=== PATIENT | female | born 1960 | race Caucasian/White ===

== ENCOUNTER → 2018-01-02 | Outpatient (CLI) | payer OTHER ==
[~2018-01-02] MED LIST: ALDACTONE25 MG PO; ASPIRIN EC81 M1 PO; ASPIRIN81 M2 PO; AUGMENTIN 875875 MG PO; AZITHROMYCIN 2250 MG PO; BENICAR HCT 401 EAC1 PO; BETASEPT 4% SU120 M1 TP; CALCIUM + D3 E1 EACH PO; CARVEDILOL12.5 MG PO; CELEXA20 MG PO; CHLORTHALIDONE25 MG PO; CIPRO500 M1 PO; CIPRO500 MG PO; CIPROFLOXACIN500 M1 PO; CLEOCIN HCL300 MG PO; COREG6.25 MG PO; DIFLUCAN OR; DOXYCYCLINE 10100 M1 PO; DOXYCYCLINE 10100 MG PO; HUMALOG100 UNIT/1 SUBQ; HYDROCODONE PO; HYDROCODONE-AP1 EAC6 PO; INVANZ IV; LANTUS SUBQ; LANTUS100 UNIT/M SUBQ; LEVEMIR SUBQ; LIPITOR 20 MG T20 M1 PO; LISINOPRIL-HCT1 EAC2 PO; LISINOPRIL10 MG PO; LOPRESSOR25 PO; METOPROLOL TART25 MG PO; MINOCIN50 MG PO; NORCO 5-325 TA1 EACH PO; NORVASC5 MG PO; NOVOLOG100 UNIT/1; NOVOLOG100 UNIT/1 SUBQ; ONDANSETRON HCL4 M2 PO; OSELB75 PO; PEPCID20 MG PO; PREDNISONE 20 M20 M1 PO; ROBITUSSIN100 MG/53 PO; VENTOLIN HFA 1818 GM INH; [UNRECOGNIZED DRUG - OTHER] SC
== END ==
LOC: RAD 02:00
DX: Z12.31 Encounter for screening mammogram for malignant neoplasm of breast (principal)

== ENCOUNTER → 2018-01-28 | Outpatient (CLI) | payer OTHER ==
[~2018-01-28] VITALS: Ht 160 cm; Wt 122.9 kg
[~2018-01-28] MED LIST changes: +COREG25 MG PO; +LISINOPRIL20 MG PO
--- NOTE | ~2018-01-28 | PATH ---
[facility] [address] [place] [address] PATHOLOGY RPT PROCEDURE Name: IAVNIA PARSON Room #: REG GLENNA Ibanez.#: [id number] Admission: 01/28/18 Date of : 56 Discharge: Report #: [id number] Path Case #: [id number] LCA Accession Number: [id number] . 01 Material submitted: . PART A: BIOPSY OF CECAL POLYP PART B: BIOPSY OF RECTAL POLYP . 01 Clinical history: . Pre-Op DX: Hx of polyps Post-Op DX: Colon polyps . 02 Diagnosis: A. Polyp, cecal polyp, endoscopic biopsy: - Tubular adenoma. - Negative for high-grade dysplasia. . B. Polyp, rectal polyp, endoscopic biopsy: - Hyperplastic polyp. - Negative for dysplasia. (IUV:tyler; 01/29/2018) QMS/01/29/2018 . 02 Electronically signed: . Rina U Vadlamani, MD, Pathologist NPI- [id number] . 01 Gross description: . A. Received in formalin labeled "Ivania Parson, BX of cecal polyp," is a single segment of carpenetr soft tissue measuring 0.3 cm in maximum dimension. The specimen is entirely submitted in cassette A1. . B. Received in formalin labeled "Ivania Parson, BX of rectal polyp," is a single segment of carpenter soft tissue measuring 0.2 cm in maximum dimension. The specimen is entirely submitted in cassette B1. (TSD; 01/28/2018) TOB/TOB . 02 Pathologist provided ICD-10: D12.0, K62.1 . 02 CPT . 975254, 796125 Performed at: [address] [id number] MD Mendoza Lacy MD Phone: [phone] [facility] [address] [place] [address] PATHOLOGY RPT PROCEDURE Name: IVANIA PARSON Room #: REG CLKerry Ontiveros#: [id number] Admission: 01/28/18 Date of : 56 Discharge: Report #: [id number] Path Case #: [id number] Performed at: [address] [id number] MD Rina Matamoros MD Phone: [phone]
--- NOTE | ~2018-01-28 | P ---
[facility] [place] [address] PROCEDURE REPORT Name: TL LANDRY Room #: REG [facility].#: [id number] Admission: 01/28/18 Attend Phys: Gavin Ornelas Discharge: Date of : 56 Report #: [id number] THIS REPORT FOR: //name// CC: Gavin Reinoso MD DATE OF SERVICE: 01/28/2018 PROCEDURE PERFORMED: Colonoscopy with biopsies. HISTORY OF PRESENT ILLNESS: The patient is a 57-year-old female, with a history of polyps, here for a 5-year followup. She denies any symptoms. No family history of colon cancer. DESCRIPTION OF PROCEDURE: The risks and benefits of the procedure were explained to the patient, those risks including, but not limited to bleeding, perforation, the risk of sedation. She understood these risks and gave informed consent. Sedation was given using propofol per anesthesia. Next, a digital rectal exam was initially performed, which was normal. Next, using a standard Olympus colonoscope, the scope was placed in the patient's anus and advanced under direct vision to the cecum. The overall prep was excellent. In the cecum, there was a 3 mm sessile polyp. This was removed with cold forceps, otherwise normal. The ileocecal valve was normal. The ascending, transverse, descending and sigmoid colon were normal. In the rectum, a 4 mm sessile polyp was noted. This was also removed with cold forceps. On retroflexion, no abnormalities were noted. The scope was then withdrawn and the procedure terminated. The patient tolerated the procedure well. IMPRESSION: 1. Two small colonic polyps. 2. Otherwise, normal colonoscopy. RECOMMENDATIONS: 1. Await biopsy results. 2. If polyps are hyperplastic, repeat in 10 years; if adenomatous polyps, repeat in 5 years. Thank you for allowing me to participate in her care. <ELECTRONICALLY SIGNED> By: Gavin Jansen MD 01/30/18 1016 0933 2336 Gavin Jansen MD /nt
== END | disposition home or self-care (01) ==
LOC: GI 07:55
DX: Z12.11 Encounter for screening for malignant neoplasm of colon (principal); D12.0 Benign neoplasm of cecum; K62.1 Rectal polyp; I10 Essential (primary) hypertension; E78.5 Hyperlipidemia, unspecified; E11.9 Type 2 diabetes mellitus without complications; N28.9 Disorder of kidney and ureter, unspecified; Z79.899 Other long term (current) drug therapy; Z86.010 Personal history of colon polyps; Z88.1 Allergy status to other antibiotic agents; Z91.040 Latex allergy status; Z79.4 Long term (current) use of insulin; Z98.890 Other specified postprocedural states; Z98.51 Tubal ligation status; Z86.73 Personal history of transient ischemic attack (TIA), and cerebral infarction without residual deficits
CPT/HCPCS: 62110; 62900

== ENCOUNTER 2018-02-10 06:57 | Inpatient (IN) | payer OTHER ==
[~2018-02-10] VITALS: Ht 160 cm; Wt 128.4 kg
--- NOTE | ~2018-02-10 | HC ---
[facility] [place] [address] CONSULTATION Name: TL LANDRY Room #: 205-P ADM IN M.R.#: [id number] Admission: 02/10/18 Attend Phys: Lencho Ahuja MD, Discharge: Date of : 56 Report #: [id number] THIS REPORT FOR: //name// CC: Lencho Reinoso DATE OF SERVICE: 02/10/2018 REASON FOR CONSULTATION: Chronic kidney disease. HISTORY OF PRESENT ILLNESS: This 57-year-old patient of Dr. Reinoso with longstanding diabetes, peripheral neuropathy, Charcot left ankle and possible retinopathy, has nephropathy with heavy proteinuria. She is followed in our office by Dr. Reeder. Baseline creatinine in the 2-2.5 range. She is having some exertional dyspnea with a strong family history of coronary artery disease. She had a stress test, which was abnormal, was slated for a heart catheterization today, creatinine at 2.4 and she is being seen to see if there is anything further to be done. HOME MEDICATIONS: Include chlorthalidone 25 mg per day, carvedilol 25 mg b.i.d., lisinopril 40 mg daily, atorvastatin 20 mg daily, and insulin. PAST MEDICAL HISTORY: She has had abdominal and groin abscesses in the past as well as a longstanding diabetes and she had a remote TIA with right-sided weakness and speech slurring. She also had amputation of the small toe on the left foot. FAMILY HISTORY: Strongly positive for diabetes in her sister and her brother, and her sister also had coronary artery disease, several myocardial infarctions and . SOCIAL HISTORY: She has 2 children. She has never been a smoker. REVIEW OF SYSTEMS: GENERAL: She has been feeling reasonably well. EYES: Vision has been a bit of a problem. She apparently has had some glaucoma. ENT: Hearing okay, swallows okay. No mouth sores. ENDOCRINE: Positive for the diabetes. RESPIRATORY: Does get winded with exertional dyspnea. CARDIAC: No chest pain. She has been swelling a bit in her legs. GASTROINTESTINAL: No nausea, vomiting or diarrhea. She did have colonoscopy and a polyp removed. GENITOURINARY: No dysuria, hematuria, or renal stones. NEUROLOGIC: She had a remote TIA. Otherwise, she is okay. She does walk with [facility] [address] [place] [address] CONSULTATION Name: TL LANDRY Room #: 205-P [facility] IN ..#: [id number] Admission: 02/10/18 Attend Phys: Lencho Ahuja MD, Discharge: Date of : 56 Report #: [id number] a cane. PHYSICAL EXAMINATION: GENERAL: This is a somewhat overweight, somewhat chronically ill-appearing patient. SKIN: Unremarkable. SKELETAL: Rather obese. HEENT: Extraocular movements are full. No scleral icterus. Hearing and vision are intact. Mucous membranes are moist. Tongue and buccal mucosa are benign. NECK: Supple, no carotid bruits are heard. CHEST: Clear to auscultation. HEART: Regular. ABDOMEN: Soft and nontender. EXTREMITIES: Show 1+ peripheral edema. NEUROLOGIC: She has got numbness in the feet. LABORATORY DATA: Creatinine 2.4, potassium 5.3, hemoglobin 9.8. ASSESSMENT AND PLAN: 1. Chronic kidney disease. She has diabetic nephropathy with heavy proteinuria CKD. Her lisinopril is on hold for her heart catheterization. She has volume overloaded. I do not believe there is a great push to have to give her any much in the way of IV fluids, maybe just a little bit before the catheterization tomorrow. Otherwise, limit the amount of dye, lisinopril on hold, etc. 2. Diabetes mellitus with peripheral neuropathy. 3. Abnormal stress test. We will need this catheterization. 4. History of transient ischemic attack. <ELECTRONICALLY SIGNED> By: Lencho Augustin MD 02/11/18 1159 1040 1810 Lencho Augustin MD /nt
--- NOTE | ~2018-02-10 | EKG ---
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: Amy MITCHELL : 1960 Requested By: Lencho Ahuja Order Number: [id number] MD: Corona Tolbert Measurements Intervals [place] Rate: 68 P: 32 NM: 162 QRS: 22 QRSD: 88 T: 63 QT: 394 QTc: 420 Interpretive Statements Sinus rhythm Low voltage, precordial leads Anteroseptal infarct, old Compared to ECG 08/11/2016 17:12:26 No significant change was found Electronically Signed On 02-10-2018 7:30:18 CDT by Corona Tolbert [email or web address] <ELECTRONICALLY SIGNED> By: Corona Tolbert MD, [facility] 02/10/18 0730 3 Corona Tolbert MD, [facility] /EPI
--- NOTE | ~2018-02-10 | EKG ---
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: GR : 1960 Requested By: Lencho Ahuja Order Number: [id number] MD: Corona Tolbert Measurements Intervals [place] Rate: 74 P: 36 PA: 166 QRS: 39 QRSD: 83 T: 92 QT: 407 QTc: 452 Interpretive Statements Sinus rhythm Anteroseptal infarct, old Nonspecific T abnormalities, lateral leads Compared to ECG 02/10/2018 07:14:04 T-wave abnormality now present Electronically Signed On 02-13-2018 8:16:51 CDT by Corona Tolbert [email or web address] <ELECTRONICALLY SIGNED> By: Corona Tolbert MD, [facility] 02/13/18 0816 0607 0607 Corona Tolbert MD, [facility] /EPI
--- NOTE | ~2018-02-10 | H ---
[facility] [place] [address] HISTORY AND PHYSICAL Name: TL LANDRY Room #: 205-P [facility] M.R.#: [id number] Admission: 02/10/18 Attend Phys: Lencho Ahuja MD, Discharge: Date of : 56 Report #: [id number] THIS REPORT FOR: //name// CC: Lencho Reinoso DATE OF SERVICE: 02/10/2018 HISTORY OF PRESENT ILLNESS: The patient is a 57-year-old female with some stable anginal symptoms, was admitted for cardiac catheterization. Unfortunately, with longstanding diabetes, found to have an elevated creatinine, her baseline has been around 1.8-2.4. She is not currently having any chest pain. I have elected to hold off for hydration and renal consult. She has been on lisinopril 40, chlorthalidone, insulin, Pepcid, carvedilol 25 b.i.d. and atorvastatin 40. Her sugars have improved. I was reviewing with Dr. Reinoso, her primary doctor, this is slightly higher than her baseline creatinine. She denies any syncope or presyncope. A definite decrease in exercise tolerance. She has never had a cardiac catheterization. PAST MEDICAL HISTORY: Positive for hypertension, diabetes, a strong family history of premature coronary artery disease, osteomyelitis of the left foot, hypertension, chronic kidney disease stage 3-4 now, ankle fracture, metatarsal amputation. FAMILY HISTORY: Positive with a brother who had premature coronary disease. SOCIAL HISTORY: She currently lives with her brother. She has never been a smoker or alcohol use. No significant caffeine. ALLERGIES: SULFA. LABORATORY DATA: H and H are 9.8 and 28.8, white count 7.8, platelets 211. Potassium 5.3, creatinine 2.4, glucose 127. Renal ultrasound looks to be normal size kidneys. No evidence of hydronephrosis. No renal mass. PHYSICAL EXAMINATION: GENERAL: Pleasant, alert. VITAL SIGNS: Pulse is 68, blood pressure 180/66. HEENT: Eyes reveal xanthelasmas. Pharynx is clear. NECK: Shows preserved upstrokes without JVD or bruits. LUNGS: Clear. CARDIOVASCULAR: Regular rate and rhythm, S1, S2, without murmur or gallop. ABDOMEN: Obese, nontender. EXTREMITIES: Reveal trace of edema. Distal pulses are diminished. There is evidence of a prior amputation. SKIN: Warm and dry without xanthoma or ulcer. [facility] [address] [place] [id number] HISTORY AND PHYSICAL Name: TL LANDRY Room #: 205-P [facility] M.#: [id number] Admission: 02/10/18 Attend Phys: Lencho Ahuja MD, Discharge: Date of : 56 Report #: [id number] MUSCULOSKELETAL: No gross joint deformity. NEUROLOGIC: Intact. ASSESSMENT: 1. Coronary artery disease with an abnormal nuclear test and stable anginal symptoms suggesting anterolateral wall ischemia. 2. Longstanding diabetes. 3. Diabetic nephropathy with an elevated creatinine at 2.4. 4. Hypertension. 5. Hypercholesterolemia. RECOMMENDATIONS AND PLAN: We will hold SARAY or a diuretic. Gentle hydration. We will ask Renal to evaluate, renal ultrasound was unremarkable. I would like to proceed to the catheterization lab with limited contrast in the a.m. Even if there could be no intervention, at least to delineate the anatomy and could hold off on intervention if necessary. Risks, benefits, alternatives were discussed with the patient, does like to proceed in this fashion. We will discuss above with Dr. Augustin in addition, I have also discussed with Dr. Reinoso, her prime care, who is not following in this hospital . By: 0909 0946 Lencho Ahuja MD, FACC /nt
--- NOTE | ~2018-02-10 | CATHLAB ---
[facility] [address] [place] [address] INVASIVE PROCEDURE REPORT Name: TL LANDRY Room #: 205-P [facility] IN ..#: [id number] Admission: 02/10/18 Attend Phys: Lencho Ahuja, Discharge: Date of : 56 Date of Service: 02/12/18 1702 Report #: [id number] THIS REPORT FOR: //name// APPROVED REPORT Study performed: 02/12/2018 07:40:52 Patient Details Patient Status: In-Patient Room #: The patient is a 57 year-old female Event Personnel Lencho Ahuja Cert Pharmacy Tech, Kena Guerrero, Ronaldo Palacio Penny, Wes admin secretary Performed Art Access - R femoral artery* 37173 Initial Mod Sed Same Phys/QHP Gr5y 679033 77134 Mod Sed Same Phys/QHP Ea 497993 Left Heart Cath w/or w/o Coronaries [id number] [facility] w/wo Plasty Single LAD 177020 Hemostasis w/ Mynx Indication Chest pain Procedure Narrative The patient was brought urgently to the Cardiac Catheterization Laboratory and was prepped and draped in a sterile manner. The Right Groin^ was infiltrated with 1% Lidocaine subcutaneous anesthesia. A PINNACLE 6FR Sheath #[id number] sheath was inserted into the RFA^. Coronary angiography was performed using coronary diagnostic catheters. The right coronary system was accessed and visualized with a JR 4 catheter. The left coronary system was accessed and visualized with a JL 4 catheter. The left ventricle was accessed and visualized with a Pigtail catheter. Left ventriculogram was performed in HASSAN projection. Closure device was deployed with a 6 Fr . The patient tolerated the procedure well and there were no complications associated with the procedure. There was no hematoma. Intraoperative Conscious Sedation Sedation start time: 08:26 Case end Time: 09:00 Fentanyl 50 mcg Versed 2 mg Fluoro Time: 5.47 minutes Dose: DAP 7868.60 cGycm2 1091 mGy [facility] [address] [place] [address] INVASIVE PROCEDURE REPORT Name: TL LANDRY Room #: 205-P [facility] IN ..#: [id number] Admission: 02/10/18 Attend Phys: Lencho Ahuja, Discharge: Date of : 56 Date of Service: 02/12/18 1702 Report #: [id number] Contrast Type and Amount: Visipaque 80 ml Hemodynamics The aortic pressure is 202/81 mmHg with a mean of 111 mmHg. The left ventricular pressure is 190/19 mmHg with a mean of mmHg. The left ventricular end diastolic pressure is 36 mmHg. PCI Technique Lesion Percutaneous coronary intervention was performed on the mid left anterior descending artery segment. A LAUNCHER 6FR EBU 3.5 #[id number] Guide Catheter was used to engage the ostium. A Luge Wire .014 x 182CM #[id number] Interventional Guidewire was used to cross the lesion. BALLOON DILATION A Balloon catheter Sprinter OTW 2.5 x 12 #[id number] was inserted and inflated up to 14.00atm for 30seconds. Additional Inflation: 10.00atm for 23seconds. Additional Inflation: 12.00atm for 29seconds. STENT DEPLOYMENT A drug-eluting stent RESOLUTE OTW 2.75 X 12 #[id number] was inserted and inflated up to 14.00atm for 40seconds. Additional Inflation: 14.00atm for 25seconds. POST STENT DEPLOYMENT BALLOON DILATION A Balloon catheter TREK NC RX 3.0 X 8 #[id number] was inserted and inflated up to 18.00atm for 21seconds. Conclusion #1 successful PTCA stent of mid LAD 90% stenosis to 0%. Placement of a 2.75 x 12 resolute drug-eluting stent postdilated with noncompliant balloon to 3.1 mm 0% residual and RAJI grade 3 flow #2 left main mildly disease giving rise to LAD and circumflex #3 circumflex OM with mild disease nondominant vessel. Diffuse distal disease diabetic appearing vessels are noted #4 dominant right coronary artery with mild irregularities 30-40% diffuse mid and distal disease is noted small diffusely disease PDA #5 hyperdynamic LV function EF 60% Recommendations and plan. Transfer to CCU follow post stent protocol. [facility] [address] [place] [address] INVASIVE PROCEDURE REPORT Name: TL LANDRY Room #: 205-P ADM IN M.R.#: [id number] Admission: 02/10/18 Attend Phys: Lencho Ahuja, Discharge: Date of : 56 Date of Service: 02/12/181701 Report #: [id number] Limited contrast was utilized here due to renal insufficiency. Continue hydration. Continue dual antiplatelet therapy indefinitely. <ELECTRONICALLY SIGNED> By: Lencho Ahuja MD, FACC 02/12/181701 01 01 Lencho Ahuja MD, FACC /INF
[2018-02-10 07:32] LABS: HEMATOCRIT 28.8 % (37.0-47.0); HEMOGLOBIN 9.8 gm/dL (12.0-15.0); MCH 30.1 pg (26.0-34.0); MCV 88.5 fL (80.0-100.0); RBC 3.26 mil/uL (4.20-5.00); RDW 13.6 % (10.5-14.5); WBC 7.8 thou/uL (4.0-11.0)
[2018-02-10 07:35] VITALS: BP 183/66
[2018-02-10 07:43] LABS: CALCIUM 8.2 mg/dL (8.5-10.1); CREATININE 2.4 mg/dL (0.6-1.0); POTASSIUM 5.3 mmol/L (3.5-5.1)
[2018-02-10 08:35] VITALS: BP 190/76
[2018-02-10 11:55] VITALS: BP 147/69
[2018-02-10 15:45] VITALS: BP 179/78
[2018-02-10 19:56] VITALS: BP 146/72
[2018-02-10 23:30] VITALS: BP 156/75
[2018-02-11 03:53] LABS: ALBUMIN 2.7 g/dL (3.4-5.0); CALCIUM 7.9 mg/dL (8.5-10.1); CREATININE 2.5 mg/dL (0.6-1.0); POTASSIUM 5.6 mmol/L (3.5-5.1)
[2018-02-11 04:45] VITALS: BP 160/77
[2018-02-11 07:42] VITALS: BP 157/94
[2018-02-11 12:12] VITALS: BP 155/70
[2018-02-11 15:36] VITALS: BP 151/78
[2018-02-11 19:52] VITALS: BP 94/57
[2018-02-11 20:45] VITALS: BP 154/59
[2018-02-12 03:51] LABS: ALBUMIN 2.8 g/dL (3.4-5.0); CALCIUM 7.9 mg/dL (8.5-10.1); CREATININE 2.3 mg/dL (0.6-1.0); PHOSPHORUS 4.9 mg/dL (2.5-4.9); POTASSIUM 5.5 mmol/L (3.5-5.1)
[2018-02-12 04:45] VITALS: BP 150/87
[2018-02-12 07:55] VITALS: BP 156/74
[2018-02-12 12:00] VITALS: BP 148/75
[2018-02-12 15:45] VITALS: BP 140/57
[2018-02-12 20:15] VITALS: BP 138/71
[2018-02-12 23:43] VITALS: BP 136/57
[2018-02-13 04:45] VITALS: BP 136/58
[2018-02-13 05:24] LABS: HEMATOCRIT 25.2 % (37.0-47.0); HEMOGLOBIN 8.4 gm/dL (12.0-15.0); MCH 29.4 pg (26.0-34.0); MCHC 33.3 g/dL (28.0-37.0); MCV 88.3 fL (80.0-100.0); RBC 2.85 mil/uL (4.20-5.00); RDW 13.3 % (10.5-14.5); WBC 8.5 thou/uL (4.0-11.0)
[2018-02-13 05:38] LABS: ALBUMIN 2.5 g/dL (3.4-5.0); ANION GAP 11 mmol/L (7-16); BUN 55 mg/dL (7-18); CALCIUM 7.8 mg/dL (8.5-10.1); CHLORIDE 108 mmol/L (98-107); CHOLESTEROL 109 mg/dL (<200); CO2 21 mmol/L (21-32); CREATININE 2.4 mg/dL (0.6-1.0); GLUCOSE 195 mg/dL (74-106); HDL CHOLESTEROL 41 mg/dL (>40); LDL CHOLESTEROL 53 mg/dL (<100); PHOSPHORUS 4.8 mg/dL (2.5-4.9); POTASSIUM 4.7 mmol/L (3.5-5.1); SGOT 9 U/L (15-37); SGPT 11 U/L (30-65); SODIUM 140 mmol/L (136-145); TC:HDL 2.7 Ratio (Not establshd); TOTAL BILIRUBIN 0.3 mg/dL (<0.1-1.0); TOTAL PROTEIN 5.7 g/dL (6.4-8.2); TRIGLYCERIDE 79 mg/dL (<150); VLDL 16 mg/dL (<40)
[2018-02-13] MEDS ORDERED: ASPIRIN325 PO (07:42)
[2018-02-13] MEDS ORDERED: EFFIENT10 MG PO (07:42)
[2018-02-13 07:53] VITALS: BP 147/58
[2018-02-13 10:23] VITALS: BP 147/58
== END 2018-02-13 11:01 | disposition home or self-care (01) | DRG 246 ==
LOC: CATH 06:57 → 2N 07:49 → CATH 12:14 → ENTRNSPT 02-13 10:50 → EDTRNSPTSTS 02-13 10:55 → 2N 02-13 11:01
PROVIDERS: Internal Medicine Cardiovascular Disease; Nurse Practitioner Adult Health
PROC: 4A023N7 Measurement of Cardiac Sampling and Pressure, Left Heart, Percutaneous Approach (ICD-10-PCS; principal; 2018-02-12)
PROC: B211YZZ Fluoroscopy of Multiple Coronary Arteries using Other Contrast (ICD-10-PCS; principal; 2018-02-12)
PROC: 027034Z Dilation of Coronary Artery, One Artery with Drug-eluting Intraluminal Device, Percutaneous Approach (ICD-10-PCS; principal; 2018-02-12)
PROC: B215YZZ Fluoroscopy of Left Heart using Other Contrast (ICD-10-PCS; principal; 2018-02-12)
DX: I25.119 Atherosclerotic heart disease of native coronary artery with unspecified angina pectoris (principal); N17.0 Acute kidney failure with tubular necrosis; N18.4 Chronic kidney disease, stage 4 (severe); E11.22 Type 2 diabetes mellitus with diabetic chronic kidney disease; E11.42 Type 2 diabetes mellitus with diabetic polyneuropathy; I12.9 Hypertensive chronic kidney disease with stage 1 through stage 4 chronic kidney disease, or unspecified chronic kidney disease; E78.00 Pure hypercholesterolemia, unspecified; I87.2 Venous insufficiency (chronic) (peripheral); E87.5 Hyperkalemia; Z79.82 Long term (current) use of aspirin; Z86.73 Personal history of transient ischemic attack (TIA), and cerebral infarction without residual deficits; Z89.422 Acquired absence of other left toe(s); Z83.3 Family history of diabetes mellitus; Z82.49 Family history of ischemic heart disease and other diseases of the circulatory system; Z88.2 Allergy status to sulfonamides; Z91.040 Latex allergy status; Z79.4 Long term (current) use of insulin; Z79.899 Other long term (current) drug therapy
CPT/HCPCS: 10081

== ENCOUNTER 2018-08-14 11:17 | Inpatient (IN) | payer OTHER ==
[~2018-08-14] VITALS: Ht 170.2 cm; Wt 127.0 kg
[2018-08-14 11:17] VITALS: BP 163/64
[~2018-08-14 11:17] MED LIST changes: +ASPIRIN325 PO; +EFFIENT10 MG PO
[2018-08-14 11:37] LABS: ABSOLUTE NEUTROPHILS 11.4 thou/uL (1.4-8.2); BASOPHILS 0.3 % (0.0-2.0); EOSINOPHILS 0.3 % (0.0-3.0); HEMATOCRIT 34.6 % (37.0-47.0); HEMOGLOBIN 11.8 gm/dL (12.0-15.0); LYMPHOCYTES 12.4 % (24.0-44.0); MCH 28.5 pg (26.0-34.0); MCHC 34.1 g/dL (28.0-37.0); MCV 83.6 fL (80.0-100.0); MONOCYTES 5.4 % (1.0-8.0); PLATELET COUNT 292 thou/uL (150-400); POLYS 81.6 % (36.0-66.0); RBC 4.14 mil/uL (4.20-5.00); RDW 13.4 % (10.5-14.5)
[2018-08-14 11:52] LABS: CALCIUM 9.2 mg/dL (8.5-10.1); CREATININE 3.4 mg/dL (0.6-1.0); POTASSIUM 4.6 mmol/L (3.5-5.1)
[2018-08-14 11:56] LABS: ALBUMIN 2.2 g/dL (3.4-5.0); TOTAL BILIRUBIN 0.3 mg/dL (<0.1-1.0); TOTAL PROTEIN 7.6 g/dL (6.4-8.2)
[2018-08-14 12:28] LABS: URINE BILIRUBIN NEGATIVE (Negative); URINE BLOOD TRACE (Negative); URINE CLARITY CLOUDY; URINE COLOR YELLOW; URINE GLUCOSE-RANDOM* NEGATIVE (Negative); URINE KETONES NEGATIVE (Negative); URINE LEUKOCYTES 1+ (Negative); URINE NITRITE POSITIVE (Negative); URINE PROTEIN (DIPSTICK) 2+ (Negative); URINE UROBILINOGEN 0.2 E.U./dl (0.2-1.0)
[2018-08-14 12:38] LABS: AMORPHOUS URATES Moderate /LPF (None Seen); CASTS None Seen /LPF (None Seen); SQUAMOUS 4-10 Moderate /LPF (0-3); URINE RBC None Seen /HPF (0-2)
[2018-08-14 12:39] LABS: BACTERIA >30 Many /HPF (None Seen)
--- NOTE | 2018-08-14 13:46 | EKG ---
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[place] : 1960 Requested By: Michelle Godinez Order Number: [id number] MD: Carter Caro Measurements Intervals [place] Rate: 63 P: 24 [place]: 156 QRS: 33 QRSD: 90 T: 47 QT: 438 QTc: 449 Interpretive Statements Sinus rhythm Low voltage, precordial leads anteroseptal infarct, old Baseline wander in lead(s) V2 Nonspecific ST-T wave changes Compared to ECG 02/13/2018 06:07:45 no significant changes Electronically Signed On 08-14-2018 13:46:21 BILLET HEATER by Carter Caro [email or web address] ��������������������������������������������� <ELECTRONICALLY SIGNED> ���������������������������������������� By: Carter Caro MD ��������������������������������������������� 08/14/18 1346 1133 1133 Carter Caro MD /EPI
[2018-08-14] MEDS ORDERED: LASIX 20 MG TAB20 MG PO (14:06)
[2018-08-14] MEDS ORDERED: ASPIR 8181 M1 PO (14:10)
[2018-08-14 14:48] VITALS: BP 144/58
[2018-08-14 15:29] VITALS: BP 152/64
[2018-08-14 17:00] VITALS: BP 97/61
--- NOTE | 2018-08-14 17:21 | NUR ---
PT ARRIVED FROM ER THIS AFTERNOON. ADMISSION ASSESSMENT, HX AND EDUCATION COMPLETE. ORDERS IMPLEMENTED. PT RESTING COMFORTABLY.
[2018-08-14 20:00] VITALS: BP 130/57
[2018-08-15 00:26] VITALS: BP 100/51
[2018-08-15 05:47] LABS: HEMATOCRIT 29.4 % (37.0-47.0); MCHC 33.2 g/dL (28.0-37.0); MCV 84.5 fL (80.0-100.0); RBC 3.49 mil/uL (4.20-5.00); WBC 13.1 thou/uL (4.0-11.0)
[2018-08-15 05:49] LABS: HEMOGLOBIN 9.8 gm/dL (12.0-15.0)
[2018-08-15 06:03] LABS: CALCIUM 8.1 mg/dL (8.5-10.1); POTASSIUM 4.3 mmol/L (3.5-5.1)
--- NOTE | 2018-08-15 07:59 | NUR ---
PROGRESS PAIN CONTROLLED WITH HYDROCODONE TAKING SPARINGLY. CALLED AND STATED HE WOULD BE IN TO ASSESS THIS AM. PT NERVOUS PENDING POSSIBLE SURGERY. EMOTIONAL LABILE SCARED THAT SHE DOESNT KNOW HER PLAN OF CARE. CONTINUE POC.
[2018-08-15 08:00] VITALS: BP 138/77
--- NOTE | 2018-08-15 16:04 | NUR ---
PT STABLE THROUGHOUT SHIFT. PT HAD BEDSIDE PROCEDURE TO DRAIN ABCESS WHICH SHE TOLERATED WELL. PT HAD EPISODES OF NAUSEA HOWEVER ZOFRAN HELPED ALLEVIATE. FAMILY IN TO VISIT.
[2018-08-15 16:45] VITALS: BP 159/63
[2018-08-15 20:03] VITALS: BP 146/71
[2018-08-16 03:10] LABS: GLYCOHEMOGLOBIN (HGB A1C) 10.8 % (4.8-5.6)
[2018-08-16 03:57] VITALS: BP 118/62
[2018-08-16 07:01] LABS: ABSOLUTE NEUTROPHILS 6.4 thou/uL (1.4-8.2); BASOPHILS 0.9 % (0.0-2.0); EOSINOPHILS 1.8 % (0.0-3.0); HEMOGLOBIN 9.2 gm/dL (12.0-15.0); LYMPHOCYTES 27.1 % (24.0-44.0); MCHC 34.1 g/dL (28.0-37.0); MCV 85.1 fL (80.0-100.0); PLATELET COUNT 238 thou/uL (150-400); POLYS 63.2 % (36.0-66.0); RBC 3.17 mil/uL (4.20-5.00); RDW 13.1 % (10.5-14.5); WBC 10.2 thou/uL (4.0-11.0)
[2018-08-16 07:11] LABS: ALBUMIN 1.7 g/dL (3.4-5.0); CALCIUM 7.8 mg/dL (8.5-10.1); CREATININE 4.1 mg/dL (0.6-1.0); PHOSPHORUS 6.6 mg/dL (2.5-4.9); POTASSIUM 5.4 mmol/L (3.5-5.1)
--- NOTE | 2018-08-16 08:58 | NUR ---
PROGRESS PT SLEPT THROUGHOUT NIGHT VSS, TELE INTACT. MEDICATIONS GIVEN ORDERED. CONTINUE POC.
[2018-08-16 10:17] VITALS: BP 116/45
--- NOTE | 2018-08-16 12:14 | HC ---
[facility] [place] [address] CONSULTATION Name: TL LANDRY Room #: 463-P ADM IN M.R.#: [id number] Admission: 08/14/18 ������������������ Attend Phys: Pawel Tellez MD Discharge: ������������������ Date of : 56 Report #: [id number] THIS REPORT FOR: //name// CC: Pawel Reinoso DATE OF SERVICE: 08/15/2018 REASON FOR CONSULTATION: Left abdominal wall pain, tenderness and swelling, rule out abscess. HISTORY OF PRESENT ILLNESS: The patient is a 58-year-old morbidly obese woman with insulin-dependent diabetes mellitus who is a previous wound care patient of Dr. Sincere Childers. Apparently in the past, she has had abdominal wall abscess, infected with methicillin-resistant Staph aureus and this was treated by Dr. Childers in 2013. She also had a left groin abscess, incised and drained by Dr. Sorin Campos in 11/2009. The patient does inject herself with insulin in the abdominal wall. Several days ago, she noticed a painful, tender, red, swollen area of her left abdominal wall, which became worse and worse. Apparently, she may have tried to get an elective outpatient appointment in the wound care center, but was unsuccessful. Area on her abdominal wall became worse. She had a hypoglycemic episode at home with weakness and dizziness. She was brought by ambulance to the Emergency Room at [facility] where she was diagnosed with possible abscess of the abdominal wall, admitted and placed on antibiotics and analgesics. Wound care is now consulted. PAST MEDICAL HISTORY: Morbid obesity, acute kidney injury, history of bacterial pneumonia, coronary artery disease, chronic renal insufficiency, diabetes mellitus type 2, history of knee fracture left, history of urinary tract infection. ALLERGIES: LATEX AND SULFA. MEDICATIONS: Prasugrel, carvedilol, Lantus insulin, insulin lispro, Lasix 20 mg a day, aspirin, lisinopril 20 mg a day, atorvastatin 20 mg a day. PAST MEDICAL AND SURGICAL HISTORY: Left fifth toe amputation; tubal ligation; incision and drainage of left groin abscess, Dr. Campos in 11/2009; incision and drainage of abdominal wall abscess with MRSA, fall 2013; cardiac catheterization, 01/2018. REVIEW OF SYSTEMS: Pain of left abdominal wall. PHYSICAL EXAMINATION: GENERAL: Shows a morbidly obese, pleasant woman, who is currently afebrile. VITAL SIGNS: Temperature 36.6, blood pressure 138/77, pulse rate 69, [facility] [address] [place] [address] CONSULTATION Name: TL LANDRY Room #: 463-P [facility]#: [id number] Admission: 08/14/18 ������������������ Attend Phys: Pawel Tellez MD Discharge: ������������������ Date of : 56 Report #: [id number] respirations 16. HEENT: Mucous membranes are moist. NECK: Supple. LUNGS: Respirations are unlabored. EXTREMITIES: Toe amputation. ABDOMEN: Morbidly obese. Examination of the left lateral abdominal wall shows an area of raised discoloration approximately 8 cm long, 5 cm wide with peripheral redness and central necrotic skin. This is tender to the touch consistent with an abscess. IMPRESSION: 1. Morbid obesity. 2. Insulin-dependent diabetes with self-injection of the abdominal wall. 3. History of methicillin-resistant Staphylococcus aureus cellulitis of the abdominal wall. 4. Coronary artery disease. 5. Tender area of left abdominal wall, rule out abscess. PLAN: We will obtained informed consent and do a bedside incision and drainage of presumed abdominal wall abscess, pack the wound, continue the patient on IV antibiotics. She is currently on Zosyn. We will do wound cultures and adjust antibiotics appropriately. Pack wound daily. Wound care team will follow. ��������������������������������������������� <ELECTRONICALLY SIGNED> ���������������������������������������� By: Torin Arriola MD ��������������������������������������������� 08/16/18 1214 1108 2223 Torin Arriola MD /nt
--- NOTE | 2018-08-16 12:14 | P ---
[facility] [place] [address] PROCEDURE REPORT Name: TL LANDRY Room #: 463-P ADM IN M.R.#: [id number] Admission: 08/14/18 ������������������ Attend Phys: Pawel Tellez MD Discharge: ������������������ Date of : 56 Report #: [id number] THIS REPORT FOR: //name// CC: Pawel Reinoso DATE OF SERVICE: 08/15/2018 DIRECTOR MARKETING ANALYTICS: Torin Arriola MD. PREOPERATIVE DIAGNOSIS: Abscess of left lateral abdominal wall and morbidly obese diabetic patient. POSTOPERATIVE DIAGNOSIS: Abscess of left lateral abdominal wall and morbidly obese diabetic patient with subcutaneous abscess of left lateral abdominal wall, possibly due to infected hematoma. A 20 mL of pus drained. INDICATION: The patient is a 58-year-old insulin-dependent diabetic woman who does inject insulin into her abdominal wall. She is morbidly obese. The patient developed a painful, tender area of her abdominal wall which became worse and worse. She was admitted to the Emergency Room complaining of severe pain, swelling, tenderness at the site of her left lateral abdominal wall. Clinically, this appeared to be an abscess. Informed consent was obtained for incision and drainage of abdominal wall abscess with debridement. DESCRIPTION OF PROCEDURE: Lidocaine 2% with epinephrine was locally injected at the abscess site subcutaneously in the deep subcutaneous tissues after informed consent was obtained and the wound was prepped with hexachlorophene prep. There was an area approximately 8 cm x 4 cm that was indurated centrally. The skin was necrotic. A scalpel was used to make an incision into the central necrotic area and obdulio yellowish naqvi pus was drained. Wound cultures were done of the pus. A scalpel was used to make a 2.5 cm x 1.5 cm elliptical wound, removing the necrotic tissue of the abscess cavity and 20 mL of pus was drained from a subcutaneous abscess cavity. Loculations were broken down with the surgeon's gloved finger. Abscess cavity was irrigated with saline. Hemostasis of the wound edge was achieved with silver nitrate. Hemostasis was complete. All pus was drained. All loculations were broken down. Wound packed with 1-inch iodoform gauze and sterile dressing. Wound cultures were sent. The patient tolerated procedure well. Modify antibiotics as needed based on culture results. ��������������������������������������������� <ELECTRONICALLY SIGNED> ���������������������������������������� By: Torin Arriola MD ��������������������������������������������� 08/16/18 1214 1101 0015 Torin Arriola MD /nt
[2018-08-16 13:06] LABS: URINE BILIRUBIN NEGATIVE (Negative); URINE BLOOD TRACE (Negative); URINE CLARITY CLEAR; URINE COLOR YELLOW; URINE GLUCOSE-RANDOM* TRACE (Negative); URINE KETONES NEGATIVE (Negative); URINE LEUKOCYTES NEGATIVE (Negative); URINE NITRITE NEGATIVE (Negative); URINE PROTEIN (DIPSTICK) 3+ (Negative); URINE SPECIFIC GRAVITY 1.025 (1.005-1.035); URINE UROBILINOGEN 0.2 E.U./dl (0.2-1.0)
[2018-08-16 13:13] LABS: CASTS None Seen /LPF (None Seen); CRYSTALS None Seen /LPF (None Seen); SQUAMOUS >10 Many /LPF (0-3); URINE RBC 0-2 Rare /HPF (0-2); URINE WBC 6-15 Few /HPF (0-5)
[2018-08-16 13:14] LABS: BACTERIA 1-9 Few /HPF (None Seen); COARSE GRANULAR CASTS 0-3 Few /LPF (None Seen); FINE GRANULAR CASTS 0-3 Few /LPF (None Seen)
[2018-08-16 14:35] VITALS: BP 130/53
--- NOTE | 2018-08-16 14:52 | NUR ---
ASSUMED CARE AT 0700. AXOX4. SEEN BY DR.AL BURNETT AND AT BEDSIDE. URINE COLLECTED AND SENT DOWN PER MD ORDER. PAIN TX PER MD ORDER. SEEN BY AND WOUND ON LEFT ABD DRESSING CAHNGED BY HIMSELF. NO S/S ACUTE DISTRESS NOTED OR REPORTED AT THIS TIME. WILL CONT TO MONITOR FOR ANY CHANGES IN CONDITION.
[2018-08-16 19:54] VITALS: BP 135/69
[2018-08-16 23:09] LABS: GLYCOHEMOGLOBIN (HGB A1C) 10.9 % (4.8-5.6)
--- NOTE | 2018-08-17 02:42 | NUR ---
PT SLEPT MOST OF THE NIGHT PT USED CALL LIGHT EFFECTIVELY NO ISSUES OVERNIGHT.
[2018-08-17 03:36] LABS: ALBUMIN 1.8 g/dL (3.4-5.0); CALCIUM 7.5 mg/dL (8.5-10.1); CREATININE 4.3 mg/dL (0.6-1.0); PHOSPHORUS 6.4 mg/dL (2.5-4.9); POTASSIUM 5.5 mmol/L (3.5-5.1)
[2018-08-17 03:56] LABS: MCH 28.4 pg (26.0-34.0); MCHC 33.3 g/dL (28.0-37.0); MCV 85.3 fL (80.0-100.0); RBC 3.17 mil/uL (4.20-5.00); RDW 13.5 % (10.5-14.5); WBC 10.2 thou/uL (4.0-11.0)
[2018-08-17 04:30] VITALS: BP 144/84
--- NOTE | 2018-08-17 07:52 | HC ---
[facility] [place] [address] CONSULTATION Name: TL LANDRY Room #: 463-P ADM IN M.R.#: [id number] Admission: 08/14/18 ������������������ Attend Phys: Pawel Tellez MD Discharge: ������������������ Date of : 56 Report #: [id number] THIS REPORT FOR: //name// CC: Pawel Reinoso DATE OF SERVICE: 08/16/2018 INFECTIOUS DISEASE CONSULTATION ATTENDING PHYSICIAN: Pawel Tellez M.D. REASON FOR EVALUATION: Left-sided abdominal wall abscess as well as positive blood cultures with gram-positive cocci, awaiting ID. HISTORY OF PRESENT ILLNESS: Chart reviewed, the patient examined. This is a 58-year-old woman with diabetes mellitus type 2, insulin requiring, who has had an issue with recurrent issues of skin and soft tissue infections with abscess. Did note including MRSA in the fall of 2013, required surgical debridement again on her abdominal wall on the right side. She developed progressive weakness, was unable to control her hands or feet attempting to grab her glucometer to measure her sugar. She did have the to call her boyfriend and he called 911. When they got there, her blood sugar was in the 50s. It did respond to glucose. She has had an ongoing issue with wounds. [facility]. She developed lesion on the left side. It became quite painful, increasing in size. As a result, she underwent operative debridement. At this point, the culture is pending, although Gram stain showed gram-positive cocci. In addition to that, she had admission blood cultures too which had Gram-positive cocci, awaiting ID. She was empirically started on antimicrobial therapy due to suspected abscess with piperacillin and tazobactam and she was given a single dose of vancomycin due to a creatinine of 4.1. At this point, she generally feels fairly well. She is eating. Denies any significant pulmonary or gastrointestinal-related complaints. ALLERGIES: SULFA AND LATEX. CURRENT MEDICATIONS: Include insulin, atorvastatin, Prasugrel, Zosyn, carvedilol, hydrocodone and zolpidem. PAST MEDICAL HISTORY: Diabetes mellitus, history of hypertension, TIAs, chronic renal insufficiency, hypercholesterolemia and previous skin and soft tissue infections. SOCIAL HISTORY: Nonsmoker. No ethanol. FAMILY HISTORY: Noncontributory. [facility] [address] [place] [address] CONSULTATION Name: TL LANDRY Room #: 463-P [facility] IN ..#: [id number] Admission: 08/14/18 ������������������ Attend Phys: Pawel Tellez MD Discharge: ������������������ Date of : 56 Report #: [id number] REVIEW OF SYSTEMS: Otherwise, unremarkable 10-point review of systems, with exception of noted in the above history of present illness. PHYSICAL EXAMINATION: GENERAL: She is pleasant, alert and cooperative. She is in mild distress. She is eating at the moment and appears to be reasonably well nourished. VITAL SIGNS: Temperature 97.6, pulse 62, respirations 18 and blood pressure 130/53. SKIN: Warm, dry. HEENT: Normocephalic. Extraocular muscles intact. NECK: Supple. LUNGS: Clear to auscultation. Somewhat diminished. HEART: Regular. Borderline bradycardic. I do not appreciate a murmur. ABDOMEN: Obese. She has a dressing on the left side. There is some exquisite amount of tenderness to examination. There are no peritoneal signs. GENITOURINARY: Deferred. RECTAL: Deferred. LABORATORY DATA: Blood cultures as described above. Wound culture pending, show Gram-positive cocci. Electrolytes: Sodium 136, potassium 5.4, chloride 103, bicarbonate is 22, anion gap of 11 and BUN and creatinine 66 and 4.1 with an estimated GFR of 11. Albumin of 1.7. CBC: White count 10.2, H and H 9.2 and 27.0 and platelets of 238,000. Hemoglobin A1c of 10.8. Renal ultrasound unremarkable. ASSESSMENT AND PLAN: Gram-positive septicemia with abdominal wall abscess, appears to be due to Staphylococcus in both cases. We will continue current therapy. The vancomycin should last at least additional 24 hours. We will see if we can get ID and susceptibility testing with history of MRSA. She clearly has advanced kidney disease, likely secondary to her diabetes mellitus. We will try to get better blood sugar control. Wound care as prescribed by Dr. Arriola. We will follow with you. ��������������������������������������������� <ELECTRONICALLY SIGNED> ���������������������������������������� By: Ankit Sullivan MD ��������������������������������������������� 08/17/18 0752 [id number] 0102 Ankit Sullivan MD /nt
[2018-08-17 08:00] VITALS: BP 145/63
[2018-08-17 09:34] LABS: URINE CREATININE-RANDOM* 92.3 mg/dL; URINE PROTEIN-RANDOM* 393.3 mg/dL (<11.9)
--- NOTE | 2018-08-17 10:30 | NUR ---
Assess due to RD consult received for pt with left abdominal subcutaneous drainage. Extreme class III obesity, BMI 43.8 and stable for years at that wt. Poorly controlled diabetes A1C 10.9 and also CKD with abnormal renal labs. Pt understands foods to limit for renal diet. Does not eat much volume of foods but activity level very limited. Would like to trial Nepro supplement-will order. Also add carb control to diet order. Low nutrition risk
[2018-08-17 15:00] VITALS: BP 150/73
--- NOTE | 2018-08-17 15:22 | NUR ---
TOWARDS POC PT A/O X4, VSS, AFEBRILE. PAIN MANAGED BY MEDS. NO CONCERNS VOICED. WILL CONTINUE TO MONITOR.
--- NOTE | 2018-08-17 16:58 | NUR ---
PT ADMITTED RELATED TO ABCESS, HYPOGLYCEMIA. CM REVIEWED CHART AND SPOKE WITH CARE TEAM. CM MET WITH PT AT BEDSIDE THIS DAY. PT IS A&O X4. CM ROLE INTRODUCED. PT INDICATED SHE LIVES IN AN APARTMENT WITH HER BROTHER WITH STAIRS AND AN ELEVATOR. 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 PT INDICATED SHE HAD BEEN ON SERVICE WITH [facility] IN THE PAST AND THAT SHE WOULD USE THEM UPON DC IF NEEDED. PT INDICATED SHE HAD BEEN TRYING TO WORK WITH [facility] DR. PUENTES TO GET A POWER CHAIR FOR USE IN THE COMMUNITY FOR LONG DISTANCES. PT INDICATED SHE PLANS TO RETURN HOME ONCE MEDICALLY STABLE. CM TO FOLLOW INDICATED WITH DC PLANNING.
--- NOTE | 2018-08-17 17:23 | NUR ---
WOUND CONSULT; ROUNDING TODAY WITH DR MARY VO. AN LEFT LAT ABDOMINAL WOUND IDENTIFED. TENDER WITH DARESSING CHANGE, SOME NON VIABLE TISSUE IN WOUNDBED. CURRENTLY USING IODAFORM COVERED WITH A BOARDERED FOAM. RECOMMENDATION; CONT CURRENT DRESSINGS. DISCSUSSED WITH SANTOS
[2018-08-17 19:29] VITALS: BP 124/52
[2018-08-18 04:07] LABS: CALCIUM 7.8 mg/dL (8.5-10.1); CREATININE 4.4 mg/dL (0.6-1.0); PHOSPHORUS 6.2 mg/dL (2.5-4.9); POTASSIUM 5.1 mmol/L (3.5-5.1)
[2018-08-18 04:10] VITALS: BP 148/66
[2018-08-18 08:06] VITALS: BP 170/72
--- NOTE | 2018-08-18 08:07 | NUR ---
PROGRESS PT UP WITH SBA TO BSC, USES CALL LIGHT APPROPRIATELY, ACCUCHECKS AND SSI CONTINUE. VSS, INCISION TO LEFT ABDOMEN COVERED WITH MEPILEX SCANT AMOUNT OF DARK DRIED RED DRAINAGE NOTED. PAIN CONTROLLED WITH ORAL PAIN MEDS USING SPARINGLY.
--- NOTE | 2018-08-18 14:28 | NUR ---
TOWARDS POC PT A/O X4, VSS, AFEBRILE, PAIN MANAGED BY MEDS. WOUND CARE AND DRESSING DONE. NO CONCERNS VOICED, WILL CONTINUE TO MONITOR.
[2018-08-18 15:00] VITALS: BP 148/63
[2018-08-18 19:58] VITALS: BP 174/62
[2018-08-19 03:12] VITALS: BP 167/54
[2018-08-19 04:10] LABS: ALBUMIN 1.8 g/dL (3.4-5.0); CALCIUM 7.8 mg/dL (8.5-10.1); CREATININE 4.4 mg/dL (0.6-1.0); PHOSPHORUS 6.6 mg/dL (2.5-4.9)
[2018-08-19 04:17] LABS: POTASSIUM 5.4 mmol/L (3.5-5.1)
[2018-08-19 14:26] VITALS: BP 172/72
--- NOTE | 2018-08-19 15:46 | NUR ---
ASSUMED CARE 0700. A/OX4, VSS, ABD DRESSING INTACT, SEEN BY PT WITH CANE BEDSIDE, ACTIVITY ENCOURAGED. KIDNEY FUNCTION MANAGED BY DR AVINA- PT TO DC ONCE KIDNEY FUNCTION STABLIZES. PT SPOKE OF HER CONCERNS REGARDING HER GRANDDAUGHTER. FALL PRECAUTION IN PLACE. CALLS APPROPRIATLEY.
--- NOTE | 2018-08-19 17:16 | NUR ---
WOUND FOLLOW UP: PT. WAS SEEN TODAY BY DR. VO AND MYSELF. PT. WOUND IS CLINICALLY BETTER TODAY. RECOMMENDATIONS: CONTINUE WITH CURRENT PLAN OF CARE. PT. AND STAFF NURSE WERE INSTRUCTED ON PLAN OF CARE.
[2018-08-19 19:57] VITALS: BP 159/68
[2018-08-20] VITALS (7 sets, daily range): BP systolic 156–181; BP diastolic 64–83
[2018-08-20 06:29] LABS: ALBUMIN 1.8 g/dL (3.4-5.0); CALCIUM 8.4 mg/dL (8.5-10.1); CREATININE 3.9 mg/dL (0.6-1.0); PHOSPHORUS 6.1 mg/dL (2.5-4.9)
[2018-08-20 06:30] LABS: POTASSIUM 5.8 mmol/L (3.5-5.1)
--- NOTE | 2018-08-20 07:49 | HC ---
[facility] [place] [address] CONSULTATION Name: TL LANDRY Room #: 463-P ADM IN M.R.#: [id number] Admission: 08/14/18 ������������������ Attend Phys: Pawel Tellez MD Discharge: ������������������ Date of : 56 Report #: [id number] THIS REPORT FOR: //name// CC: Pawel Reinoso REASON FOR CONSULTATION: Acute kidney injury. REASON FOR PRESENTATION: Abdominal pain, abdominal wall abscess. HISTORY OF PRESENT ILLNESS: This is a 58-year-old with past medical history of diabetes mellitus, hypertension, coronary artery disease. She carries a diagnosis of chronic kidney disease. She sees Dr. Reeder in my clinic. I saw her back in 05/2016. At that time, she was evaluated for a creatinine of around 2. She does have proteinuria and had been working with Dr. Reeder in his clinic to maximize her antiproteinuric agents. She recently had a mid LAD stent. Medications were adjusted accordingly. She presented with abdominal pain yesterday and was found to have an abdominal abscess. She was started on vancomycin and Zosyn. Baseline creatinine is around 2. This had risen significantly to around 4.1. There is no contrast given. Renal ultrasound was unremarkable. UA showed a significant nitrate. She did have Gram-positive cocci in her blood. I am being consulted to manage her acute kidney injury. PAST MEDICAL HISTORY: 1. Diabetes mellitus. 2. Hypertension. 3. Chronic kidney disease. 4. Abdominal wall abscess. 5. Resection of left metatarsal head due to Charcot foot. 6. Previous ulceration of the fifth metatarsal head. ALLERGIES: SULFA. SOCIAL HISTORY: Nonsmoker. Disabled. MEDICATIONS: 1. Effient. 2. Atorvastatin. 3. Carvedilol. 4. Furosemide. 5. Lisinopril. 6. Lantus. REVIEW OF SYSTEMS: GENERAL: No fever or chills. [facility] [address] [place] [address] CONSULTATION Name: TL LANDRY Room #: 463-P [facility].#: [id number] Admission: 08/14/18 ������������������ Attend Phys: Pawel Tellez MD Discharge: ������������������ Date of : 56 Report #: [id number] CARDIOVASCULAR: No chest pain or palpitation. PULMONARY: No cough or hemoptysis. GASTROINTESTINAL: No nausea or vomiting. GENITOURINARY: No frequency, no urgency. SKIN: As per the history of present illness. FAMILY HISTORY: Significant for diabetes mellitus. PHYSICAL EXAMINATION: VITAL SIGNS: Blood pressure was 118/62, temperature 36.5, pulse rate of 69. HEAD AND NECK: No jugular venous distention, no bruit, no thyromegaly. CHEST: No crackles. CARDIOVASCULAR: No rub. ABDOMEN: There is a dressing applied over the left abdominal area. LOWER EXTREMITIES: Trace edema. LABORATORY DATA: Laboratory values reviewed. BUN is 66, creatinine is 4.1, potassium is 5.4, phosphorus is 6.1, hemoglobin is 9.2. Blood cultures are positive for gram-positive cocci. ASSESSMENT, IMPRESSION AND PLAN: 1. Acute kidney injury. 2. Chronic kidney disease with a baseline creatinine of around 2. 3. Diabetes mellitus. 4. Hypertension. 5. Abdominal wall abscess. 6. Acute kidney injury is well explained by the combination of vancomycin and Zosyn. I will discontinue vancomycin at this point. Given her hyperkalemia, I will discontinue the lisinopril. 7. Continue with IV fluids. 8. Avoid nephrotoxins. It takes time for the vancomycin and Zosyn induced toxicity to resolve. Given her blood cultures, I would consider either Zyvox or daptomycin to replace vancomycin. ��������������������������������������������� <ELECTRONICALLY SIGNED> ���������������������������������������� By: Juan Manuel Irving MD ��������������������������������������������� 08/20/18 0749 0805 1714 Juan Manuel Irving MD /nt
--- NOTE | 2018-08-20 11:25 | NUR ---
WOUND FOLLOW UP: PT. WAS SEEN TODAY BY DR. VO AND MYSELF. PT. WOUND IS SLIGHTLY NECROTIC AROUND THE EDGES AND PT. IS EXPERENCING A GREAT DEAL OF PAIN. RECOMMENDATIONS: CONTINUE WITH CURRENT PLAN OF CARE. PT. AND STAF NURSE WERE INSTRUCTED ON PLAN OF CARE.
--- NOTE | 2018-08-20 12:49 | NUR ---
ASSUMED CARE AT 0700. ALERT X4 DENIES PAIN, VSS, ABLE TO MAKE NEEDS KNOWN. DR FABRICE JAIMES NEW ORDERS FOR TREATMENT OF POTASSIUM AND CREATENINE/BUN THAT ARE ELEVATED FROM MORNING LAB DRAW. FOLLOWED BY WOUND CARE WITH DRESSING CHANGED PER ORDER C/D/I TOLERATED DRESSING CHANGE. PT CALLS FOR ASSISTANCE FOR COMMODE. AMBULATES WITH CANE THAT IS BEDSIDE. NO PLANS TO DC TODAY. CALL LIGHT IN REACH. CONTINUE TO MONITOR.
--- NOTE | 2018-08-20 17:13 | NUR ---
RECEIVED PT FROM [facility]. PT AWAKE, ALERT/ORIENTED X4. DENIES PAIN. DRESSING TO ABDOMEN CDI. VITAL SIGNS STABLE. NO NEW CONCERNS AT THIS TIME. WILL CONTINUE CURRENT CARE.
--- NOTE | 2018-08-21 05:22 | NUR ---
Patient remains A&Ox4; Swallows meds whole w/o difficulty. Remains cont. B&B; ambulates independently w/ steady gait. Blood sugars WNL. Remains on IVABT/Abd. abscess; no adverse reactions noted. LAC SL noted/infusing/flushing w/o difficulty. DRSG C/D/I to LUQ. BS+X4. Patient in bed rsting w/ no c/o pain or discomfort. No s/s of acute distress noted. Call light/desired belongings within reach. PO fluids encouraged. Will continue to monitor.
[2018-08-21 07:21] LABS: ALBUMIN 1.9 g/dL (3.4-5.0); CALCIUM 8.7 mg/dL (8.5-10.1); CREATININE 3.5 mg/dL (0.6-1.0); PHOSPHORUS 5.7 mg/dL (2.5-4.9)
[2018-08-21 07:35] VITALS: BP 144/61
--- NOTE | 2018-08-21 10:30 | NUR ---
SW reviewed chart and spoke with nursing and attending physician. Pt was transferred to [facility] and is progressing towards goals for discharge. Plan is for pt to discharge home when medically stable. [facility] is following to assist as needed with discharge planning.
[2018-08-21] MEDS ORDERED: LANTUS100 UNIT/M SUBQ (12:00)
[2018-08-21] MEDS ORDERED: KEFLEX500 M1 PO (12:01)
[2018-08-21] MEDS ORDERED: NOVOLOG100 UNIT/1 SUBQ (12:06)
--- NOTE | 2018-08-21 12:15 | NUR ---
ASSUMED CARE OF PATIENT THIS MORNING. PATIENT IS A&OX4. SHE GETS UP AD RADHA IN HER ROOM. PATIENT IS ON STRICT I&O, AND HAS A HAT IN HER BSC. SHE HAS A L. AC IV THAT WILL BE REMOVED THIS AFTERNOON BEFORE PATIENT GETS DISCHARGED HOME WITH SELF CARE. SHE HAS AN ABSCESS ON HER LEFT ABDOMEN. OPTIFOAM DRESSING APPLIED TO ABDOMEN, WOUND IS SLIGHTLY NECROTIC AROUND THE EDGES, WITH PUS. AREA IS PAINFUL TO TOUCH. PATIENT HAD NO ABNORMAL ASSESSMENT FINDINGS. PATIENT REVIEWS CEFAZOLIN IVPB TWICE A DAY. SHE IS ON LOW DOSE SLIDING SCALE FOR HER INSULIN AND DID NOT RECEIVE ANY INSULIN THIS MORNING, BS WAS 103. PATIENT IS CURRENTLY SITTING IN BED WITH CALL LIGHT WITHIN REACH. SHE CALLS OUT APPROPRIATELY FOR ASSISTANCE.
[2018-08-21 13:49] VITALS: BP 144/61
--- NOTE | 2018-08-21 14:33 | NUR ---
WOUND FOLLOW UP: PT. WAS SEEN TODAY BY DR. DE JESUS AND MYSELF. PT. WOUND CARE ORDERS WERE UPDATED TODAY TO AID IN WOUND HEALING. DISCHARGE PLANNING WAS DISCUSSED AND PT. WILL FOLLOW UP IN OUTPATIENT CLINIC WITH DR. DE JESUS FOR CONTINUED WOUND CARE. RECOMMENDATIONS: CONTINUE WITH CURRENT PLAN OF CARE. PT. AND STAFF NURSE WERE INSTRUCTED ON PLAN OF CARE.
--- NOTE | 2018-08-21 14:47 | NUR ---
PATIENT DISCHARGED HOME WITH SELF CARE. IV DC'D. DISCHARGE INSTRUCTIONS REVIEWED WITH PATIENT AND PATIENT SIGNED IN AGREEMENT. WOUND CARE WAS DONE TO [facility] AND PICTURES TAKEN UPON DISCHARGED. VOLUNTEER TRANSPORT PICKED PATIENT UP AND TOOK PATIENT AND HER BELONGINGS TO MAIN ENTRANCE TO MEET HER RIDE FOR DISMISSAL.
== END 2018-08-21 14:57 | disposition home or self-care (01) | DRG 853 ==
LOC: ER 11:17 → EROBS 13:29 → 4W 13:29 → SICU 08-20 16:34 → ENTRNSPT 08-21 14:30 → EDTRNSPTSTS 08-21 14:33 → SICU 08-21 14:57
PROVIDERS: Hospitalist; Physician Assistant; ADMIT Hospitalist
PROC: 0J980ZZ Drainage of Abdomen Subcutaneous Tissue and Fascia, Open Approach (ICD-10-PCS; principal; 2018-08-14)
DX: A41.9 Sepsis, unspecified organism (principal); E43 Unspecified severe protein-calorie malnutrition; L02.211 Cutaneous abscess of abdominal wall; N17.9 Acute kidney failure, unspecified; E11.8 Type 2 diabetes mellitus with unspecified complications; E16.2 Hypoglycemia, unspecified; I10 Essential (primary) hypertension; E11.22 Type 2 diabetes mellitus with diabetic chronic kidney disease; I12.9 Hypertensive chronic kidney disease with stage 1 through stage 4 chronic kidney disease, or unspecified chronic kidney disease; N18.9 Chronic kidney disease, unspecified; E66.9 Obesity, unspecified; E87.5 Hyperkalemia
CPT/HCPCS: 10045; 10047; 15002

== ENCOUNTER → 2018-08-27 | Outpatient (CLI) | payer OTHER ==
[~2018-08-27] MED LIST changes: +ASPIR 8181 M1 PO; +KEFLEX500 M1 PO; +LASIX 20 MG TAB20 MG PO
== END ==
LOC: HYPER 08-17 10:22
DX: T81.89XA Other complications of procedures, not elsewhere classified, initial encounter (principal); B43.2 Subcutaneous pheomycotic abscess and cyst; E11.649 Type 2 diabetes mellitus with hypoglycemia without coma; E66.01 Morbid (severe) obesity due to excess calories; I25.10 Atherosclerotic heart disease of native coronary artery without angina pectoris; Z68.41 Body mass index [BMI] 40.0-44.9, adult; Z79.01 Long term (current) use of anticoagulants; Z79.4 Long term (current) use of insulin; Z89.429 Acquired absence of other toe(s), unspecified side; Z95.5 Presence of coronary angioplasty implant and graft; Z79.82 Long term (current) use of aspirin; Y92.89 Other specified places as the place of occurrence of the external cause; Y83.8 Other surgical procedures as the cause of abnormal reaction of the patient, or of later complication, without mention of misadventure at the time of the procedure

== ENCOUNTER → 2018-09-08 | Outpatient (CLI) | payer OTHER | LOC: HYPER 09-03 07:00 | DX: T81.89XD Other complications of procedures, not elsewhere classified, subsequent encounter (principal); B43.2 Subcutaneous pheomycotic abscess and cyst; E11.649 Type 2 diabetes mellitus with hypoglycemia without coma; E66.01 Morbid (severe) obesity due to excess calories; I25.10 Atherosclerotic heart disease of native coronary artery without angina pectoris; Z79.4 Long term (current) use of insulin; Z68.41 Body mass index [BMI] 40.0-44.9, adult; Z79.01 Long term (current) use of anticoagulants; Y83.8 Other surgical procedures as the cause of abnormal reaction of the patient, or of later complication, without mention of misadventure at the time of the procedure ==

== ENCOUNTER → 2018-09-24 | Outpatient (CLI) | payer OTHER | LOC: HYPER 07:06 | DX: T81.89XD Other complications of procedures, not elsewhere classified, subsequent encounter (principal); L02.211 Cutaneous abscess of abdominal wall; E66.01 Morbid (severe) obesity due to excess calories; I25.10 Atherosclerotic heart disease of native coronary artery without angina pectoris; B43.2 Subcutaneous pheomycotic abscess and cyst; R05 Cough; Z79.4 Long term (current) use of insulin; Z79.01 Long term (current) use of anticoagulants; Y83.8 Other surgical procedures as the cause of abnormal reaction of the patient, or of later complication, without mention of misadventure at the time of the procedure ==

== ENCOUNTER 2018-09-26 20:12 | Emergency (ER) | payer OTHER ==
[~2018-09-26] VITALS: Ht 170.2 cm; Wt 124.7 kg
[2018-09-26 22:33] VITALS: BP 173/62
== END 2018-09-26 22:50 | disposition home or self-care (01) ==
LOC: ER 20:12
DX: S80.02XA Contusion of left knee, initial encounter (principal); S80.211A Abrasion, right knee, initial encounter; S50.311A Abrasion of right elbow, initial encounter; E78.00 Pure hypercholesterolemia, unspecified; I12.9 Hypertensive chronic kidney disease with stage 1 through stage 4 chronic kidney disease, or unspecified chronic kidney disease; E11.22 Type 2 diabetes mellitus with diabetic chronic kidney disease; N18.9 Chronic kidney disease, unspecified; Z88.2 Allergy status to sulfonamides; Z91.040 Latex allergy status; W01.0XXA Fall on same level from slipping, tripping and stumbling without subsequent striking against object, initial encounter; Y93.89 Activity, other specified; Y92.89 Other specified places as the place of occurrence of the external cause; Y99.8 Other external cause status

== ENCOUNTER → 2018-10-08 | Outpatient (CLI) | payer OTHER | LOC: HYPER 06:54 | DX: T81.89XD Other complications of procedures, not elsewhere classified, subsequent encounter (principal); S80.211A Abrasion, right knee, initial encounter; B43.2 Subcutaneous pheomycotic abscess and cyst; E11.649 Type 2 diabetes mellitus with hypoglycemia without coma; E66.01 Morbid (severe) obesity due to excess calories; I25.10 Atherosclerotic heart disease of native coronary artery without angina pectoris; Z79.01 Long term (current) use of anticoagulants; Z79.4 Long term (current) use of insulin; Z68.41 Body mass index [BMI] 40.0-44.9, adult; W19.XXXA Unspecified fall, initial encounter; Y93.89 Activity, other specified; Y92.89 Other specified places as the place of occurrence of the external cause; Y99.8 Other external cause status; Y83.8 Other surgical procedures as the cause of abnormal reaction of the patient, or of later complication, without mention of misadventure at the time of the procedure ==

== ENCOUNTER → 2018-10-29 | Outpatient (CLI) | payer OTHER ==
[~2018-10-29] MED LIST changes: +LISINOPRIL40 MG PO
== END ==
LOC: HYPER 06:47
DX: T81.89XD Other complications of procedures, not elsewhere classified, subsequent encounter (principal); S80.211D Abrasion, right knee, subsequent encounter; B43.2 Subcutaneous pheomycotic abscess and cyst; E11.649 Type 2 diabetes mellitus with hypoglycemia without coma; E66.01 Morbid (severe) obesity due to excess calories; I25.10 Atherosclerotic heart disease of native coronary artery without angina pectoris; Z79.4 Long term (current) use of insulin; Z79.01 Long term (current) use of anticoagulants; Z68.41 Body mass index [BMI] 40.0-44.9, adult; X58.XXXD Exposure to other specified factors, subsequent encounter; Y83.8 Other surgical procedures as the cause of abnormal reaction of the patient, or of later complication, without mention of misadventure at the time of the procedure

== ENCOUNTER 2018-11-03 03:39 | Inpatient (IN) | payer OTHER ==
[~2018-11-03] VITALS: Ht 170.2 cm; Wt 127.0 kg
[~2018-11-03 03:39] MED LIST changes: -LISINOPRIL40 MG PO
[2018-11-03 04:05] LABS: ABSOLUTE NEUTROPHILS 5.9 thou/uL (1.4-8.2); ANION GAP 8 mmol/L (7-16); BASOPHILS 0.5 % (0.0-2.0); BUN 72 mg/dL (7-18); CALCIUM 8.4 mg/dL (8.5-10.1); CHLORIDE 107 mmol/L (98-107); CO2 25 mmol/L (21-32); CREATININE 3.3 mg/dL (0.6-1.0); EOSINOPHILS 0.8 % (0.0-3.0); GLUCOSE 129 mg/dL (74-106); HEMATOCRIT 31.5 % (37.0-47.0); HEMOGLOBIN 10.5 gm/dL (12.0-15.0); LYMPHOCYTES 22.8 % (24.0-44.0); MCH 28.9 pg (26.0-34.0); MCHC 33.3 g/dL (28.0-37.0); MCV 86.8 fL (80.0-100.0); MONOCYTES 3.7 % (1.0-8.0); PLATELET COUNT 212 thou/uL (150-400); POLYS 72.2 % (36.0-66.0); POTASSIUM 5.1 mmol/L (3.5-5.1); RBC 3.62 mil/uL (4.20-5.00); RDW 14.5 % (10.5-14.5); SODIUM 140 mmol/L (136-145); WBC 8.2 thou/uL (4.0-11.0)
[2018-11-03 04:14] LABS: APTT 28.8 Seconds (24.5-32.8); PROTIME 10.6 Seconds (9.3-11.4)
[2018-11-03 04:15] LABS: ALBUMIN 2.6 g/dL (3.4-5.0); DIRECT BILIRUBIN < 0.1 mg/dL (<0.1-0.3); SGOT 16 U/L (15-37); SGPT 13 U/L (30-65); TOTAL BILIRUBIN 0.2 mg/dL (<0.1-1.0); TOTAL PROTEIN 6.4 g/dL (6.4-8.2); TROPONIN-I <0.06 ng/mL (<0.06)
[2018-11-03 05:29] LABS: URINE BILIRUBIN NEGATIVE (Negative); URINE BLOOD TRACE (Negative); URINE CLARITY CLEAR; URINE COLOR YELLOW; URINE GLUCOSE-RANDOM* NEGATIVE (Negative); URINE KETONES NEGATIVE (Negative); URINE LEUKOCYTES-REFLEX NEGATIVE (Negative); URINE NITRITE-REFLEX NEGATIVE (Negative); URINE PROTEIN (DIPSTICK) 3+ (Negative); URINE UROBILINOGEN 0.2 E.U./dl (0.2-1.0)
[2018-11-03 05:37] LABS: BACTERIA-REFLEX 1-9 Few /HPF (None Seen); MUCUS 4-6 Moderate strn/LPF (None Seen); SQUAMOUS 4-10 Moderate /LPF (0-3); URINE RBC 3-10 Few /HPF (0-2); URINE WBC-REFLEX 0-5 Rare /HPF (0-5)
[2018-11-03 05:38] LABS: FINE GRANULAR CASTS 0-3 Few /LPF (None Seen); HYALINE CASTS 0-3 Few /LPF (None Seen)
[2018-11-03 06:38] VITALS: BP 144/62
[2018-11-03 06:46] VITALS: BP 163/53
[2018-11-03 07:25] VITALS: BP 150/89
[2018-11-03 07:35] VITALS: BP 150/89
[2018-11-03] MEDS ORDERED: LISINOPRIL40 MG PO (07:41)
[2018-11-03] MEDS ORDERED: LASIX 20 MG TAB20 MG PO (07:44)
[2018-11-03] MEDS ORDERED: LANTUS SUBQ (07:46)
[2018-11-03] MEDS ORDERED: HUMALOG100 UNIT/1 SUBQ (07:47)
--- NOTE | 2018-11-03 09:13 | EKG ---
[address] [place] [address] ELECTROCARDIOGRAM REPORT Name: TL LANDRY Room #: 458-P ADM IN M.R.#: [id number] ������������������ Admission: 11/03/18 ������������������ Attend Phys: Angel Weaver MD Discharge: ������������������ Date of : 56 Report #: [id number] ����������������������������������������������������������������� [id number] THIS REPORT FOR: //name// [facility] ED Test Date: 2018-11-03 Test Time: 03:48:34 Pat Name: TL LANDRY Department: Room: 458 Gender: F Technical Training Manager: ALEC : 1960 Requested By: Inga Scruggs Order Number: [id number] MD: Corona Tolbert Measurements Intervals [place] Rate: 57 P: 39 WA: 176 QRS: 29 QRSD: 105 T: 54 QT: 488 QTc: 476 Interpretive Statements Sinus bradycardia Probable anteroseptal infarct, old Compared to ECG 08/14/2018 11:33:22 No significant change was found Electronically Signed On 11-03-2018 9:12:51 CDT by Corona Tolbert [email or web address] ��������������������������������������������� <ELECTRONICALLY SIGNED> ���������������������������������������� By: Corona Tolbert MD, [facility] ��������������������������������������������� 11/03/18 0912 0348 7 Corona Tolbert MD, [facility] /EPI
[2018-11-03 10:25] LABS: CHOLESTEROL 176 mg/dL (<200); HDL CHOLESTEROL 55 mg/dL (>40); LDL CHOLESTEROL 100 mg/dL (<100); TC:HDL 3.2 Ratio (Not establshd); TRIGLYCERIDE 109 mg/dL (<150); VLDL 22 mg/dL (<40)
--- NOTE | 2018-11-03 14:42 | NUR ---
PT ADMITTED RELATED TO TIA, FALL, KIDNEY DISEASE. CM REVIEWED CHART AND SPOKE WITH CARE TEAM. CM MET WITH PT AT BEDSIDE THIS DAY. PT IS A&O X4. CM ROLE INTRODUCED. PT INDICATED SHE LIVES IN AN APARTMENT WITH HER BROTHER AND ELEVTOR ACCESS. PT INDICATED SHE HAS A FWW, CANE. AMD BSC FOR USE UPON DC. 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 PT INDICATED THAT SHE ANTICPATES RETURNING HOME ONCE MEDICALLY STABLE. CM TO FOLLOW INDICATED WITH DC PLANNING.
[2018-11-03 15:25] VITALS: BP 167/55
[2018-11-03 19:52] VITALS: BP 126/67
--- NOTE | 2018-11-03 19:54 | NUR ---
PT A&OX4, VSS, DENIES PAIN. PT IS SLOW TO ARTICULATE THOUGHTS AT TIME. NO SIGNS OF WEAKNESS, SLURRED SPEECH, DISTRESS. PT HAS STEADY WALK. BED IN LOWEST POSITION, USES CALL LIGHT APPROPRIATELY. WILL CONTINUE TO MONITOR.
[2018-11-04 04:32] VITALS: BP 153/80
[2018-11-04 06:04] LABS: HEMATOCRIT 26.1 % (37.0-47.0); HEMOGLOBIN 8.6 gm/dL (12.0-15.0); MCH 28.9 pg (26.0-34.0); MCV 87.5 fL (80.0-100.0); RBC 2.98 mil/uL (4.20-5.00); RDW 14.8 % (10.5-14.5); WBC 7.8 thou/uL (4.0-11.0)
[2018-11-04 06:13] LABS: CALCIUM 7.7 mg/dL (8.5-10.1); CREATININE 3.7 mg/dL (0.6-1.0)
[2018-11-04 06:18] LABS: POTASSIUM 5.4 mmol/L (3.5-5.1)
[2018-11-04 07:42] VITALS: BP 145/66
[2018-11-04 14:54] VITALS: BP 167/71
[2018-11-04 15:29] VITALS: BP 167/71
--- NOTE | 2018-11-04 15:53 | NUR ---
DISCHARGE ORDERS RECEIVED. PATIENT DISCHARGING TO HOME WITH [facility]. DISCHARGE/HOME HEALTH ORDERS AND DISCHARGE SUMMARY FAXED TO [facility]. CALL PLACED TO [facility], SPOKE WITH ANDREA, NOTIFIED OF PATIENTS DISCHARGE TO HOME TODAY AND ORDERS FAXED. CM CONTACT INFORMATION PROVIDED TO ANDREA. ANDREA TO FACILITATE PATIENTS HH NEEDS. UNIT CM/SW AWARE.
--- NOTE | 2018-11-04 16:27 | NUR ---
WOUND CONSULT; ASSESSMENT REVEALS AN OBESE FEMALE WELL KNOW TO DR DE JESUS. WOUNDS WERE IDENTIFIED TO THE RIGHT KNEE 1.5 CM DEEP AND A WOUND TO THE LEFT SIDE OF THE ABDOMEN 1 CM DEEP.SEROSANGINOUS DRAINAGE SMALL AMOUNT NO S/S OF INFECTION. RECOMMENDATIONS; PURACOL AG TO ABDOMENAL WOUND DAILY/PRN AND AQACEL AGE TO THE RIGHT KNEE WOUND DAILY/PRN DISCUSSED WITH SANTOS
--- NOTE | 2018-11-04 19:16 | NUR ---
PT A&OX4, VSS, DENIES PAIN. NO SIGNS OF DISTRESS, FACIAL DROOPING, SLURRED SPEECH. PT STEADY ON FEET TO BEDSIDE COMMODE. PT DINES DIZZINESS, N/V/D. WOUND CARE CONSULTED FOR WOUNDS ON LEFT ABD AND RIGHT KNEE. PHOTOS HAVE BEEN TAKEN TODAY AND PLACED IN CHART WITH NEW DRESSING ORDERS THAT HAVE BEEN APPLIED. PT DISCHARGED HOME TODAY WITH ORDERS TO SEE WOUND DOCTOR LIZA AND HER PRIMARY DOCTOR ENDER IN 1 WEEK. PT HAS BEEN STABLE AND RESTING IN BED. FALL PRECAUTIONS IN PLACE. PT SENT HOME WITH HOME HEALTH TODAY. PT HAS ALL HER BELONGINGS.
--- NOTE | 2018-11-06 14:06 | HC ---
[facility] [place] [address] CONSULTATION Name: TL LANDRY Room #: 458-P [facility] IN Norma.RKenneth#: [id number] Admission: 11/03/18 ������������������ Attend Phys: Angel Weaver MD Discharge: 11/04/18 ������������������ Date of : 56 Report #: [id number] THIS REPORT FOR: //name// CC: Angel Reinoso DATE OF SERVICE: 11/03/2018 HISTORY OF PRESENT ILLNESS: This is a 58-year-old female patient who was seen by me for a complicated history. The patient is admitted with history suggestive of TIA. She apparently had some slurred speech and lower extremity weakness. She said she had another episode of TIA and that left her with some weakness on the right side. The symptoms became worse. She woke up with this symptom. She denies any trauma to the head, but she said she felt numb and tends to fall down. It is not clear what her blood sugar was when it happened. When she came to Emergency Room at that time, her blood sugar was 88. REVIEW OF SYSTEMS: Positive for headache. This headache is chronic, but has become worse. She does not know any ophthalmology etiology, which has been associated with her headaches. She has a history of coronary artery disease, chronic kidney disease, chronic renal insufficiency, cough, fall, generalized weakness, an injury to the knee, insulin-dependent diabetes, abdominal abscess at one time. This was the relevant 14-point review of system. She does not have any new ENT symptoms. Her heart and respiration stable. She denies any musculoskeletal, constitutional, dermatological, hematological, psychiatric, throat, allergic symptom associated with these symptoms. She was crying during this interview. When I asked her further if she is feeling depressed, she said no. PAST MEDICAL HISTORY: Positive for dyslipidemia. She had a tubal ligation in the past. She had TIA in the past. FAMILY HISTORY: Positive for diabetes. SOCIAL HISTORY: She does not smoke or drink any alcohol. PHYSICAL EXAMINATION: The patient is alert and responsive. Her speech is unremarkable and her memory and fund of knowledge is at her baseline. Her cranial nerve examination 2-12 looks mostly unremarkable. I could not look at the patient's fundus. She is weak in the right upper and right lower extremity. She indicates this is since her TIA. Her position sense is intact, but it takes a long time for her to tell that. Reflexes appeared to be present in spite of her symptoms of diabetes. Tone is symmetrical. There is no cerebellar sign. She is morbidly obese. She does not have any dysmorphic features of eyes, ears and face. Her vision appeared to be baseline. Cardiac examination [address] [address] CONSULTATION Name: TL LANDRY Room #: 458-P [facility] IN M.R.#: [id number] Admission: 11/03/18 ������������������ Attend Phys: Angel Weaver MD Discharge: 11/04/18 ������������������ Date of : 56 Report #: [id number] is unremarkable. Pulses are difficult to feel. There is no edema. No thyroid mass. Blood pressure 150/89, pulse is 65, temperature is 97.2. LABORATORY DATA: White count is 8.2. Sodium is 144. The patient's CT scan of the head looks unremarkable except for atrophy. IMPRESSION: I am not sure what the etiology of the patient's symptom is. Neurologically, it will be desirable to exclude the possibility of transient ischemic attack or stroke. She is weak on the right side, but I do not know how much is new and how much is old. I talked to her about MRI. She does have some metal in her ankles. I discussed with her that can cause problems, but most of the time it is okay. She wants to proceed with MRI. We will see what it shows. We will also get an MRV. It looks like she is getting depressed and we may have to address that further. She needs a good ophthalmology examination to make sure she does not have any ophthalmology problem. That needs to be done as an outpatient because no auditing manager comes here. We will do the MRI, then await the testing and decide about the further management after that is available. Thank you very much for this referral. ��������������������������������������������� <ELECTRONICALLY SIGNED> ���������������������������������������� By: Howard Resendiz MD ��������������������������������������������� 11/06/18 1406 1504 0457 Howard Resendiz MD /nt
--- NOTE | 2018-11-06 14:07 | EEG ---
[facility] [place] [address] ELECTROENCEPHALOGRAM Name: TL LANDRY Room #: 458-P [facility] IN M.R.#: [id number] ������������������ Admission: 11/03/18 ������������������ Attend Phys: Angel Weaver MD Discharge: 11/04/18 ������������������ Date of : 56 Report #: [id number] ����������������������������������������������������������������� [id number] THIS REPORT FOR: //name// CC: Angel Reinoso DATE OF SERVICE: 11/04/2018 This patient's EEG was done to evaluate the possibility of any seizure. EEG was done by placing the electrode by standard 10-20 system of electrode placement. Both referential and sequential montages were used for recording. Background activity in this patient's EEG is about 9 Hz and 30 microvolts. It is a symmetrical activity. The patient became drowsy and that is associated with bilateral slowing. Photic stimulation was unremarkable. Throughout the record, no active epileptiform activity was noticed. IMPRESSION: This patient's EEG is within normal limit. Thank you very much for this referral. ���������������������������������������� <ELECTRONICALLY SIGNED> ���������������������������������������� By: Howard Resendiz MD ��������������������������������������������� 11/06/18 1407 1616 1623 Howard Resendiz MD /nt
== END 2018-11-04 18:30 | disposition home health service (06) | DRG 69 ==
LOC: ER 03:39 → 4W 05:50 → EROBS 05:50 → 4W 06:46 → ENTRNSPT 11-04 18:12 → 4W 11-04 18:30
PROVIDERS: Emergency Medicine; Internal Medicine; ADMIT Hospitalist
DX: G45.9 Transient cerebral ischemic attack, unspecified (principal); E46 Unspecified protein-calorie malnutrition; Z68.41 Body mass index [BMI] 40.0-44.9, adult; N18.9 Chronic kidney disease, unspecified; E11.22 Type 2 diabetes mellitus with diabetic chronic kidney disease; E78.00 Pure hypercholesterolemia, unspecified; I12.9 Hypertensive chronic kidney disease with stage 1 through stage 4 chronic kidney disease, or unspecified chronic kidney disease; E78.5 Hyperlipidemia, unspecified; Z95.5 Presence of coronary angioplasty implant and graft; I25.10 Atherosclerotic heart disease of native coronary artery without angina pectoris; Z86.14 Personal history of Methicillin resistant Staphylococcus aureus infection; Z89.422 Acquired absence of other left toe(s); Z79.4 Long term (current) use of insulin; Z88.2 Allergy status to sulfonamides; Z91.040 Latex allergy status; Z83.3 Family history of diabetes mellitus; Z79.899 Other long term (current) drug therapy
CPT/HCPCS: 10045

== ENCOUNTER → 2018-11-12 | Outpatient (CLI) | payer OTHER ==
[~2018-11-12] MED LIST changes: +LISINOPRIL40 MG PO
== END ==
LOC: HYPER 06:57
DX: T81.89XD Other complications of procedures, not elsewhere classified, subsequent encounter (principal); S80.211D Abrasion, right knee, subsequent encounter; E11.649 Type 2 diabetes mellitus with hypoglycemia without coma; E66.01 Morbid (severe) obesity due to excess calories; B43.2 Subcutaneous pheomycotic abscess and cyst; I25.10 Atherosclerotic heart disease of native coronary artery without angina pectoris; Z68.41 Body mass index [BMI] 40.0-44.9, adult; Z79.01 Long term (current) use of anticoagulants; Z79.4 Long term (current) use of insulin; X58.XXXD Exposure to other specified factors, subsequent encounter; Y83.8 Other surgical procedures as the cause of abnormal reaction of the patient, or of later complication, without mention of misadventure at the time of the procedure

== ENCOUNTER → 2018-11-25 | Outpatient (CLI) | payer OTHER | LOC: HYPER 06:52 | DX: T81.89XD Other complications of procedures, not elsewhere classified, subsequent encounter (principal); S80.211D Abrasion, right knee, subsequent encounter; B43.2 Subcutaneous pheomycotic abscess and cyst; L02.211 Cutaneous abscess of abdominal wall; I25.10 Atherosclerotic heart disease of native coronary artery without angina pectoris; R05 Cough; E66.01 Morbid (severe) obesity due to excess calories; Z87.01 Personal history of pneumonia (recurrent); Z79.4 Long term (current) use of insulin; Z79.01 Long term (current) use of anticoagulants; Z68.41 Body mass index [BMI] 40.0-44.9, adult; X58.XXXD Exposure to other specified factors, subsequent encounter; Y83.8 Other surgical procedures as the cause of abnormal reaction of the patient, or of later complication, without mention of misadventure at the time of the procedure ==

== ENCOUNTER 2019-01-13 21:44 | Inpatient (IN) | payer OTHER ==
[~2019-01-13] VITALS: Ht 152.4 cm; Wt 137.6 kg
[2019-01-13 21:48] VITALS: BP 218/72
[2019-01-13 22:21] LABS: BE(vivo) -11.1 mmol/L (-2 to +3); HCO3 15.3 mmol/L (22.0-26.0); PCO2 36.1 mmHg (35.0-45.0); PO2 72.6 mmHg (80.0-100.0); sO2 92.3 % (92.0-98.0)
[2019-01-13 22:22] LABS: pH 7.246 (7.360-7.450)
[2019-01-13] MEDS ORDERED: VELTASSA8.4 GM PO (22:39)
[2019-01-13 22:40] LABS: ABSOLUTE NEUTROPHILS 12.3 thou/uL (1.4-8.2); BASOPHILS 0.2 % (0.0-2.0); HEMATOCRIT 32.6 % (37.0-47.0); HEMOGLOBIN 10.6 gm/dL (12.0-15.0); LYMPHOCYTES 5.3 % (24.0-44.0); MCH 28.9 pg (26.0-34.0); MCHC 32.7 g/dL (28.0-37.0); MCV 88.4 fL (80.0-100.0); MONOCYTES 2.4 % (1.0-8.0); PLATELET COUNT 211 thou/uL (150-400); POLYS 92.1 % (36.0-66.0); RBC 3.69 mil/uL (4.20-5.00); RDW 13.7 % (10.5-14.5); WBC 13.3 thou/uL (4.0-11.0)
[2019-01-13 22:46] LABS: ANION GAP 14 mmol/L (7-16); BUN 83 mg/dL (7-18); CALCIUM 8.4 mg/dL (8.5-10.1); CHLORIDE 105 mmol/L (98-107); CO2 19 mmol/L (21-32); CREATININE 4.3 mg/dL (0.6-1.0); GLUCOSE 318 mg/dL (74-106); SODIUM 138 mmol/L (136-145)
[2019-01-13 22:52] LABS: APTT 29.4 Seconds (24.5-32.8); INR 1.1; PROTIME 11.1 Seconds (9.3-11.4)
[2019-01-13 22:56] LABS: ALBUMIN 2.8 g/dL (3.4-5.0); MAGNESIUM 1.5 mg/dL (1.8-2.4); SGOT 10 U/L (15-37); SGPT 15 U/L (30-65); TOTAL BILIRUBIN 0.4 mg/dL (<0.1-1.0); TOTAL PROTEIN 7.3 g/dL (6.4-8.2); TROPONIN-I <0.06 ng/mL (<0.06)
--- NOTE | 2019-01-13 23:36 | EKG ---
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 : 1960 Requested By: Abdi Soto Order Number: [id number] MD: Didier Dias Measurements Intervals [place] Rate: 86 P: 53 MO: 155 QRS: 22 QRSD: 91 T: 44 QT: 358 QTc: 429 Interpretive Statements Sinus rhythm Low voltage, precordial leads Anteroseptal infarct, old Minimal ST depression, diffuse leads Baseline wander in lead(s) V5,V6 Compared to ECG 11/03/2018 03:48:34 Low QRS voltage now present ST (T wave) deviation now present Sinus bradycardia no longer present Myocardial infarct finding still present Electronically Signed On 01-13-2019 23:35:55 CDT by Didier Dias [email or web address] ��������������������������������������������� <ELECTRONICALLY SIGNED> ���������������������������������������� By: Didier Dias MD ��������������������������������������������� 01/13/19 2335 42 42 Didier Dias MD /EPI
[2019-01-14] VITALS (19 sets, daily range): BP systolic 102–197; BP diastolic 26–146
--- NOTE | 2019-01-14 00:53 | NUR ---
REPORT OT INPATIENT LEGAL DIRECTOR, KARY. ROOM CHANGED TO 243.
[2019-01-14 02:58] LABS: URINE BILIRUBIN NEGATIVE (Negative); URINE BLOOD 2+ (Negative); URINE CLARITY SL CLOUDY; URINE COLOR YELLOW; URINE GLUCOSE-RANDOM* 3+ (Negative); URINE KETONES TRACE (Negative); URINE LEUKOCYTES-REFLEX NEGATIVE (Negative); URINE PROTEIN (DIPSTICK) 3+ (Negative); URINE UROBILINOGEN 0.2 E.U./dl (0.2-1.0)
[2019-01-14 02:59] LABS: URINE NITRITE-REFLEX POSITIVE (Negative)
[2019-01-14 03:05] LABS: SQUAMOUS 0-3 Few /LPF (0-3); URINE WBC-REFLEX >25 Many /HPF (0-5); WBC CLUMPS Few (None Seen)
[2019-01-14 03:06] LABS: BACTERIA-REFLEX 1-9 Few /HPF (None Seen); CASTS None Seen /LPF (None Seen); CRYSTALS None Seen /LPF (None Seen); MUCUS 0-3 Light strn/LPF (None Seen); URINE RBC 0-2 Rare /HPF (0-2)
[2019-01-14 03:33] LABS: POC CA IONIZED 4.5 mg/dL (4.5-5.3); POC CREATININE 4.2 mg/dL (0.6-1.3); POC HEMOGLOBIN 9.2 g/dL (12.0-15.0); POC POTASSIUM 5.4 mmol/L (3.5-5.1)
[2019-01-14 04:27] LABS: ANION GAP 12 mmol/L (7-16); BUN 86 mg/dL (7-18); CALCIUM 8.4 mg/dL (8.5-10.1); CHLORIDE 108 mmol/L (98-107); CO2 21 mmol/L (21-32); CREATININE 4.1 mg/dL (0.6-1.0); GLUCOSE 314 mg/dL (74-106); MAGNESIUM 1.8 mg/dL (1.8-2.4); SODIUM 141 mmol/L (136-145); TROPONIN-I <0.06 ng/mL (<0.06)
[2019-01-14 04:28] LABS: POTASSIUM 5.5 mmol/L (3.5-5.1)
--- NOTE | 2019-01-14 06:22 | NUR ---
PATIENT ARRIVED TO THE UNIT AT APPROXIMATELY 0100. PATIENT NOTED TO BE ON AN INSULIN DRIP AND IS VERY TEARFUL ABOUT ADMISSION. THIS RN SPOKE CAMLY TO PATIENT AND SHE BEGAN TO FEEL BETTER. PATIENT NOTED TO HAVE 3 DIFFERENT WOUNDS ON HER BODY. WOUND CARE CONSULT PLACED.
--- NOTE | 2019-01-14 10:28 | 2DMMODE ---
[facility] [address] [place] [address] 2 D/M-MODE ECHOCARDIOGRAM Name: TL LANDRY Room #: 243-P ADM IN M.R.#: [id number] ������������� Admission: 01/13/19 ������������� Attend Phys: Jerome Wade, Discharge: ��� ������������� ��� Date of : 56 Date of Service: 01/14/19 1028 �� Report #: [id number] �������� ��������������������������������������������[id number] THIS REPORT FOR: //name// APPROVED REPORT Study performed: 01/14/2019 09:22:07 EXAM: Comprehensive 2D, Doppler, and color-flow Echocardiogram Patient Location: ICU Room #: 243 Status: routine BSA: 2.18 HR: 82 bpm BP: 164/72 mmHg Rhythm: NSR Other Information Study Quality: Fair Indications Diabetes CAD Hypertension/HDD 2D Dimensions IVSd: 13.47 (7-11mm) LVOT Diam: 19.72 (18-24mm) LVDd: 48.18 mm PWd: 9.96 (7-11mm) Ascending Ao: 31.41 (22-36mm) LVDs: 30.94 (25-40mm) Aortic Root: 28.50 mm Aortic Valve AoV Peak Jarred.: 1.76 m/s AO Peak Gr.: 12.34 mmHg LVOT Max P.38 mmHg LVOT Max V: 1.36 m/s SONIDO Vmax: 2.36 cm2 Mitral Valve E/A Ratio: 1.0 MV Decel. Time: 165.49 ms MV E Max Jarred.: 1.07 m/s MV A Jarred.: 1.06 m/s MV PHT: 47.99 ms IVRT: 51.90 ms [facility] [address] [address] 2 D/M-MODE ECHOCARDIOGRAM Name: TL LANDRY Room #: 243-P [facility] IN [facility].#: [id number] ������������� Admission: 01/13/19 ������������� Attend Phys: Jerome Wade, Discharge: ��� ������������� ��� Date of : 56 Date of Service: 01/14/19 1028 �� Report #: [id number] �������� ��������������������������������������������[id number] Pulmonary Valve PV Peak Jarred.: 1.24 m/s PV Peak Gr.: 6.11 mmHg Tricuspid Valve TR Peak Jarred.: 2.61 m/s TR Peak Gr.: 27.20 mmHg PA Pressure: 37.00 mmHg Left Ventricle The left ventricle is normal size. There is normal left ventricular wall thickness. The left ventricular systolic function is normal. The left ventricular ejection fraction is within the normal range. LVEF is 55-60%. Moderate diastolic dysfunction is present (pseudonormal filling). Right Ventricle The right ventricle is normal size. The right ventricular systolic function is normal. Atria Left atrium is dilated. The right atrium size is normal. Aortic Valve The aortic valve is normal in structure. No aortic regurgitation is present. There is no aortic valvular stenosis. Mitral Valve The mitral valve is normal in structure. Mild mitral regurgitation. No evidence of mitral valve stenosis. Tricuspid Valve The tricuspid valve is normal in structure. Mild to moderate tricuspid regurgitation. Estimated PAP is 37mmHg. Pulmonic Valve Pulmonic valve is not well visualized. Trace pulmonic regurgitation. Great Vessels The aortic root is normal in size. The ascending aorta is normal in size. IVC is dilated and collapses >50% with inspiration. Pericardium There is no pericardial effusion. [facility] [place] [address] 2 D/M-MODE ECHOCARDIOGRAM Name: TL LANDRY Room #: 243-P ADM IN M.R.#: [id number] ������������� Admission: 01/13/19 ������������� Attend Phys: Jerome Wade, Discharge: ��� ������������� ��� Date of : 56 Date of Service: 01/14/19 1028 �� Report #: [id number] �������� ��������������������������������������������[id number] <Conclusion> The left ventricle is normal size. There is normal left ventricular wall thickness. The left ventricular systolic function is normal. Moderate diastolic dysfunction is present (pseudonormal filling). The right ventricle is normal size. Left atrium is dilated. The aortic valve is normal in structure. Mild mitral regurgitation. Mild to moderate tricuspid regurgitation. Estimated PAP is 37mmHg. ��������������������������������������������� <ELECTRONICALLY SIGNED> ���������������������������������������� By: Selvin Woodard MD ��������������������������������������������� [id number] Selvin Woodard MD /CHIP
--- NOTE | 2019-01-14 10:59 | NUR ---
Nutrition: If % intake of meals improves, REC add carb controlled to renal diet order.
--- NOTE | 2019-01-14 12:11 | NUR ---
CM ASSESSMENT: CASE OPENED FOR DC PLANNING. CLINICAL INFO REVIEWED. PT ADMITS WITH DKA,AUDRA, DIASTOLIC HF. PCP IS DR. PUENTES AND DENTAL CERAMIST ASSISTANT IS BRITT. MET WITH PT WHO IS ALERT AND ORIENTED X4, INDICATES DOESN'T FEEL GOOD, NAUSEOUS. LIVES IN APT WITH HER BROTHER WITH ELEVATOR ACCESS. PT INDEPENDENT WITH ADLS, USES CANE, WALKER, [employer]CS AT HOME, GRAB BARS IN SHOWER. PAST HH FROM [facility] AND MOST RECENT[facility], NOT CURRENTLY ON SERVICE BUT PT INDICATES SHE WOULD USE [facility] AGAIN. OUTPT WOUND CARE FROM DR. DE JESUS. WILL FOLLOW TO ASSIST WITH COORDINATION OF DC NEEDS, POSSIBLE HH AT DC.
--- NOTE | 2019-01-14 15:23 | NUR ---
NOTED THAT A PICC/CENTRAL LINE WAS ORDERED THIS AM. SPOKE TO THE PATIENT AND SHE IS REFUSING CENTRAL LINE PLACEMENT AT THIS TIME. SPOKE TO THE GUT CLEANER AND AN ADDITIONAL PIV WAS PLACED IN THE PATIENTS RIGHT UPPER ARM CEPHALIC. CENTRAL LINE ON HOLD AT THIS TIME DUE TO NO PATIENT CONSENT
--- NOTE | 2019-01-14 18:55 | NUR ---
ASSUMED CARE @ 0700 01/14/19, PT ASSESSMENTS AND VSS COMPLETE PER ICU PROTOCOL. PT ALERT AND ORIENTED X 4. PT SR ON THE MONITOR. PT ON 2L OF , SATS IN THE 90'S, NO SOA NOTED. PT ON RENAL DIET, ACCUCHECKS ACHS. SRINIVASAN IN PLACE. PT HAD AN UNEVENTFUL NIGHT. PLAN OF CARE- CONT TO MONITOR.
[2019-01-15] VITALS (18 sets, daily range): BP systolic 113–174; BP diastolic 33–74
--- NOTE | 2019-01-15 06:45 | NUR ---
END OF SHIFT NOTE: ASSUMED CARE AT 1900 01/14. NO EVENTS OVER NIGHT. BEDBATH GIVEN. FALL FREE OVERNIGHT, ALL HIGH FALL PRECAUTIONS IN PLACE.
[2019-01-15 08:09] LABS: ALBUMIN 2.4 g/dL (3.4-5.0); CALCIUM 8.2 mg/dL (8.5-10.1); PHOSPHORUS 6.8 mg/dL (2.5-4.9); POTASSIUM 5.4 mmol/L (3.5-5.1)
--- NOTE | 2019-01-15 08:30 | NUR ---
RECEIVED REPORT FROM GASTON AND ASSUMED CARE. ASSESSMENT COMPLETED. ASSISTED WITH BREAKFAST SIT UP.
--- NOTE | 2019-01-15 13:15 | NUR ---
PATIENT TRANSFERRED TO 204 PER BED WITH MONITOR. REPORT GIVEN TO KYRIE GRAHAM. BP IMPROVED AFTER HYDRALAZINE
--- NOTE | 2019-01-15 16:49 | NUR ---
PT TRANSFERED FROM THE ICU - PT ORIENTED TO ROOM AND BEDSPACE - ASSESSMENT CHARTED - MEDS PER AUG - PT WITH HACKING COUGH AND STATES SHE DOES NOT FEEL THAT SHE CAN GET SECRETIONS UP. HAS BEEN NAPPING OFF AND ON THIS AFTERNOON. NO CO'S OF PAIN OR NASUEA. APPEARS TO BE RESTING COMFORTABLY. NO CO'S AT THE PRESENT TIME.
[2019-01-16 03:47] VITALS: BP 130/48
[2019-01-16 05:10] LABS: HEMATOCRIT 24.3 % (37.0-47.0); MCH 29.6 pg (26.0-34.0); MCHC 33.5 g/dL (28.0-37.0); MCV 88.3 fL (80.0-100.0); RBC 2.76 mil/uL (4.20-5.00); RDW 13.8 % (10.5-14.5); WBC 7.1 thou/uL (4.0-11.0)
[2019-01-16 05:20] LABS: HEMOGLOBIN 8.2 gm/dL (12.0-15.0)
[2019-01-16 05:27] LABS: CALCIUM 8.1 mg/dL (8.5-10.1); CREATININE 5.4 mg/dL (0.6-1.0); MAGNESIUM 1.8 mg/dL (1.8-2.4); POTASSIUM 5.4 mmol/L (3.5-5.1)
[2019-01-16 05:30] LABS: ALBUMIN 2.2 g/dL (3.4-5.0); CALCIUM 8.1 mg/dL (8.5-10.1); CREATININE 5.4 mg/dL (0.6-1.0); PHOSPHORUS 6.9 mg/dL (2.5-4.9); POTASSIUM 5.4 mmol/L (3.5-5.1)
--- NOTE | 2019-01-16 06:45 | NUR ---
[facility] 1899. PT/VITALS STABLE. DENIES PAIN. VERY POOR TOLERANCE TO ACTIVITIES. ASSESSMETN CHARTED. PROGRESSING SLOWLY WITH POC. CR/BUN HIGH. SRINIVASAN IN/ ABOUT 250ML NOTED. NEPHROLOGY ON THE CASE. URINE APPEARS VERY CLOUDY AND PT ON ABX. ADEQUATE REST NOTED THROUGH THE NIGHT. WILL CONTINUE TO MONITOR AND FOLLOW WITH POC
[2019-01-16 07:32] VITALS: BP 141/44
[2019-01-16 11:41] VITALS: BP 142/56
--- NOTE | 2019-01-16 19:33 | NUR ---
ASSUMED CARE OF PATIENT AT 0700. PATINET IS A&O X4, EMOTIONAL AT TIMES. ASSESSMENTS CHARTED. PATIENT'S SRINIVASAN CATHETER WAS REMOVED AFTER BEING EVALUATED BY PT. PATIENT IS A SBA. PATIENT VOIDED 25 CC. PATIENT CONTINUING TO PUSH FLUIDS. DENIES ANY ABDOMINAL DISCOMFORT. WOUND CHANGE ON LEFT FOOT ULCER. ACCU CHECKS AC&HS AND COVERED WITH INSULIN. RIGHT SHOULDER IV REMOVED DUE TO PATIENT DISCOMFORT, PATIENT HAS TWO OTHER VIABLE IVS. PATIENT IS RESTING COMFORTABLY. CONTINUE POC.
[2019-01-16 19:47] VITALS: BP 144/63
[2019-01-17 05:08] VITALS: BP 137/59
[2019-01-17 05:30] LABS: ALBUMIN 2.1 g/dL (3.4-5.0); CREATININE 5.5 mg/dL (0.6-1.0); MAGNESIUM 1.8 mg/dL (1.8-2.4); PHOSPHORUS 7.3 mg/dL (2.5-4.9); POTASSIUM 5.3 mmol/L (3.5-5.1)
[2019-01-17 05:42] LABS: HEMATOCRIT 25.6 % (37.0-47.0); HEMOGLOBIN 8.4 gm/dL (12.0-15.0); MCH 29.2 pg (26.0-34.0); MCHC 32.9 g/dL (28.0-37.0); MCV 88.7 fL (80.0-100.0); RBC 2.88 mil/uL (4.20-5.00); WBC 6.5 thou/uL (4.0-11.0)
[2019-01-17 07:56] VITALS: BP 134/54
--- NOTE | 2019-01-17 08:25 | NUR ---
ASSUME CARE 1900. PT/VITALS STABLE. DENIES PAIN. MODERATE TOLERANCE TO ACTIVITY. NEEDS ENCOURAGEMENT TO ENGAGE MRE IN ACTIVITY. ASSESSMENT CHARTED. PROGRESSING WELL WITH POC. PLAN IS TO CONTINUE WITH ABX TREATMENT AND MONITOR REAL FUNCTION. VERY LOW URINE OUTPUT NOTED. SRINIVASAN OUT/PT VOIDING. NEEDS MORE ENCOURAGEMENT TO GET UP AND USE THE COMMODE. WILL CONTINUE TO MONITOR AND FOLLOW WIHT POC
[2019-01-17 12:40] VITALS: BP 117/52
[2019-01-17 15:15] VITALS: BP 122/48
--- NOTE | 2019-01-17 15:56 | NUR ---
ASSUMED CARE AT 0700, SHIFT ASSESSMENT DONE, MEDS GIVEN, VSS. DENIES ANY PAIN, NAUSEA, VOMITING. ACHS, LOW DOSE. UP WITH STANDBY, VOIDING PER BEDSIDE COMMODE. ON 2L NC, NSR ON TELE. WILL CONTINUE TO ASSESS AND ASSIST WITH ADLs NEEDED.
[2019-01-17 20:44] VITALS: BP 133/48
--- NOTE | 2019-01-18 03:31 | NUR ---
ASSESSMENT CHARTED. VSS. PT DENIES PAIN, N/V, DIZZINESS. SHAFFER 2 L NC. X1 ASSIST TO COMMOD VOIDING. TREATMENTS PER RT. LANTUS AND SLIDING SCALE PER EMAR- PT REQUESTED ONLY 6 UNITS SLIDING SCALE NOT FULL DOSE. PT TEARFUL ON AN OFF THROUGHOUT THE NIGHT- REGARDING DIAGNOSIS OF CHF AND WHO SOME YEARS BACK. WILL CONTINUE TO MONITOR AND WITH POC.
[2019-01-18 04:56] LABS: CALCIUM 7.7 mg/dL (8.5-10.1); CREATININE 5.8 mg/dL (0.6-1.0); MAGNESIUM 1.8 mg/dL (1.8-2.4); POTASSIUM 5.1 mmol/L (3.5-5.1)
[2019-01-18 05:12] VITALS: BP 129/54
[2019-01-18 05:21] LABS: HEMATOCRIT 25.6 % (37.0-47.0); HEMOGLOBIN 8.3 gm/dL (12.0-15.0); MCH 28.8 pg (26.0-34.0); MCHC 32.4 g/dL (28.0-37.0); MCV 88.8 fL (80.0-100.0); RBC 2.88 mil/uL (4.20-5.00); WBC 6.2 thou/uL (4.0-11.0)
[2019-01-18 07:50] VITALS: BP 122/41
--- NOTE | 2019-01-18 08:26 | P ---
[facility] [place] [address] PROCEDURE REPORT Name: TL LANDRY Room #: 204-P ADM IN M.R.#: [id number] Admission: 01/13/19 ������������������ Attend Phys: Jerome Wade MD Discharge: ������������������ Date of : 56 Report #: [id number] THIS REPORT FOR: //name// CC: Jerome Reinoso DATE OF SERVICE: 01/15/2019 PREPROCEDURE DIAGNOSIS: Diabetic ulcer, plantar lateral left foot. POST PROCEDURE DIAGNOSIS: Diabetic ulcer, plantar lateral left foot. PROCEDURE PERFORMED: Sharp full thickness surgical debridement of left lateral foot. Pre-debridement measurements 2.0 x 1.0 x eschar. Post-debridement measurements 2.0 x 1.0 x 0.5 cm. After appropriate verbal consent at the bedside was obtained, a time-out was taken and correct site, location, patient, and procedure were clarified. Following this, #15 bladed scalpel was used to excise necrotic tissue including skin and subcutaneous tissue down to a clean bleeding base. There was good granulation tissue and healthy tissue was seen in the base. The patient tolerated the procedure well. Estimated blood loss approximately 1-2 mL. Pain experienced with procedure 2 on a scale of 1-10. The patient tolerated the procedure with no complications. ��������������������������������������������� <ELECTRONICALLY SIGNED> ���������������������������������������� By: Dung Chirinos MD ��������������������������������������������� 01/18/19 0826 1819 07 Dung Chirinos MD /topher
--- NOTE | 2019-01-18 08:26 | HC ---
[facility] [place] [address] CONSULTATION Name: TL LANDRY Room #: 204-P ADM IN M.R.#: [id number] Admission: 01/13/19 ������������������ Attend Phys: Jerome Wade MD Discharge: ������������������ Date of : 56 Report #: [id number] THIS REPORT FOR: //name// CC: Jerome Reinoso DATE OF SERVICE: 01/14/2019 CHIEF COMPLAINT: Sacral ulcer and diabetic foot ulceration. HISTORY OF PRESENT ILLNESS: This is a 58-year-old female patient who was admitted to the hospital with DKA, acute kidney injury and hypoxia. She has had increase in cough and shortness of breath over the last several days and has not been able to lie supine. She has been coughing up dark sputum and having significant chest contusion. She was noted to have a sacral ulcer as well as a foot ulcer on the left foot and I have been asked to see her in this regard. PAST MEDICAL HISTORY: Positive for history of diabetes mellitus, hypertension, chronic kidney disease stage 4. She has had fistula placed, but has not begun dialysis. She has had previous abdominal abscess at the amputation of the fifth toe of the left foot, has a history of congestive heart failure, coronary artery disease. SOCIAL HISTORY: Negative for alcohol or tobacco use. FAMILY HISTORY: Positive for heart disease in a sister, cancer in the father, diabetes in the sister and dementia in her mother. MEDICATIONS: Include carvedilol, aspirin, atorvastatin, Zestril, insulin, Humalog, Lasix, and Veltassa. ALLERGIES: LATEX AND SULFA. REVIEW OF SYSTEMS: CONSTITUTIONAL: The patient denies fevers, chills or recent weight loss. NEUROLOGICAL: The patient denies focal weakness, numbness or tingling. EYES: The patient denies visual changes, redness, or drainage. ENT: The patient denies earache, nasal drainage or sore throat. CARDIOVASCULAR: The patient denies chest pain, palpitations. She has had some diaphoresis. PULMONARY: The patient complains of cough with thick dark sputum production, persistent cough and shortness of air. GASTROINTESTINAL: The patient denies nausea, vomiting, diarrhea or abdominal pain. ORTHOPEDIC: The patient is aware of the ulceration on her left foot. Other systems in a 14-point review of systems are negative. [address] [address] CONSULTATION Name: TL LANDRY Room #: 204-P [facility] IN M.R.#: [id number] Admission: 01/13/19 ������������������ Attend Phys: Jerome Wade MD Discharge: ������������������ Date of : 56 Report #: [id number] PHYSICAL EXAMINATION: VITAL SIGNS: At this time include temperature 37.2, pulse 72, respiratory rate 22, blood pressure 111/64. GENERAL: This is a chronically ill-appearing female patient who appears to be in moderate discomfort. HEENT: Head normocephalic. Nose and throat are clear. NECK: Supple. LUNGS: Coarse. HEART: Tachycardic and regular without murmur. ABDOMEN: Soft, obese, nontender. EXTREMITIES: The sacral region demonstrates a stage 3 ulceration of the sacral region. It is relatively superficial, clean with granulation tissue and does not appear to be infected. EXTREMITIES: Lower extremities show 2+ edema. She has ulceration on the plantar lateral aspect of the left foot. There is moderate callus and some eschar. This is pared away carefully revealing 2 small ulcerations with no exposed deep structures and no evidence of infection. CLINICAL IMPRESSION: 1. Stage 3 sacral pressure ulceration. 2. Diabetic ulceration to the left foot, Guillen grade 2. 3. Acute kidney injury and chronic kidney disease stage 4. 4. Diabetes mellitus. 5. Morbid obesity. 6. Acute respiratory failure, possibly due to pneumonia and/or fluid overload. RECOMMENDATIONS: At this point in time, we will recommend barrier cream to the sacral ulcer, low air loss mattress, q.2 hour turning and repositioning. We will recommend Xeroform gauze and gentamicin ointment to the left foot. PRAFO boots while in bed, q. 2 hour turning and positioning. Nutritional support and continuation of medications. ��������������������������������������������� <ELECTRONICALLY SIGNED> ���������������������������������������� By: Dung Chirinos MD ��������������������������������������������� 01/18/19 0826 1744 0700 Dung Chirinos MD /nt
[2019-01-18 11:54] VITALS: BP 115/41
--- NOTE | 2019-01-18 12:14 | NUR ---
FOLLOWING FOR DC PLANNING. CLINICAL INFO REVIEWED. PER DR. NEAL, MEDICALLY STABLE TODAY. MET WIHT PT AND DISCUSSED MEDICAL STABILITY AND NEED TO PLAN FOR TRANSITION OF CARE TO SKILLED REHAB VS HOME WITH HH. PT INDICATES SHE DOES NOT WANT SKILLED REHAB, WANTS TO RETURN HOME WITH [facility]. REACHED OUT TO PT WHO WILL EVAL AFTER LUNCH TODAY AND GIVE RECOMMENDATION FOR POST DISCHARGE LEVEL OF REHAB. PROVIDED PT WITH IN NETWORK SKILLED REHAB LIST AND AFTER REVIEW, CHOSE [facility] IF SKILLED REHAB NEEDED. RN AND DR. NEAL UPDATED AND WILL FOLLOW TO COORDINATE APPRORPIATE LEVEL OF REHAB FOR DC.
--- NOTE | 2019-01-18 15:10 | NUR ---
FAXED REFERRAL TO [facility] SPOKE WITH CELESTINE IN ADM SHE RECEIVED REFERRAL AND VERIFIED THAT PT'S INSURANCE IS IN NETWORK SHE IS REVIEWING REFERRAL AND IS AWAITING OT NOTES WILL FAX ONCE AVAILABLE. DCP TO FOLLOW.
--- NOTE | 2019-01-18 15:39 | NUR ---
WOUND CARE FOLLOW UP; ROUNDING WITH DR MARY VO AND KAYLA CLEAN UP WORKER. THE LEFT PLAANTAR FOOT WOUND WAS ASSESSED TODAY WAS STABLE AND S/S OF INFECTED WERE NOT SEEN. THE SACRAUM WAS NOT ASSESSED TODAY. RECOMMENDATION; CONTINUE CURRENT TREATMENT FAMILY PRESENT
[2019-01-18 16:01] VITALS: BP 125/48
--- NOTE | 2019-01-18 16:19 | NUR ---
FAXED CLINICAL UPDATE TO [facility] SPOKE WITH RAMIRO IN ADM SHE RECEIVED UPDATE. DCP TO FOLLOW.
--- NOTE | 2019-01-18 16:31 | NUR ---
ASSESSMENT CHARTED - MEDS PER AUG - ACCUCHECKS COVERED PER SSI - AM BLOOD SUGAR 46 - PATIENT GIVEN MILK - KIA CRACKERS/ PEANUT BUTTER AND YOGURT AND BREAKFAST CAME - AT LUNCH PATIENT 110 - NO COVERAGE REQUIRED. PT UP IN THE CHAIR FOR MOST OF THE DAY - SEEN BY PHYSICAL THERAPY. [place] DIET AND FLUIDS. NO CO'S OF PAIN OR NAUSEA. WOUND CARE IN TO CHANGE DRESSING TO FOOT AND NEW ORDERS NOTED. PT TO GO TO SNF TOMORROW. NO CO'S AT THE PRESENT TIME.
[2019-01-18 20:40] VITALS: BP 128/44
--- NOTE | 2019-01-19 03:38 | NUR ---
ASSESSMENT CHARTED. VSS. PT DENIES PAIN, N/V, DIZZINESS. SHAFFER ST BY TO COMMOD. LANTUS 30 UNITS GIVEN PT REQUESTED THE LOWER DOSE BOTTOMS OUT IN AM SHE SAID. PLAN FOR SNF SOON, PT STATES SHED RATHER GO HOME BUT IS WILLING TO GO. WILL CONTINUE TO MONITOR AND WITH POC.
[2019-01-19 03:55] LABS: CALCIUM 7.9 mg/dL (8.5-10.1); CREATININE 5.7 mg/dL (0.6-1.0); MAGNESIUM 1.8 mg/dL (1.8-2.4); POTASSIUM 5.4 mmol/L (3.5-5.1)
[2019-01-19 03:57] LABS: HEMATOCRIT 24.8 % (37.0-47.0); HEMOGLOBIN 8.2 gm/dL (12.0-15.0); MCH 29.1 pg (26.0-34.0); MCHC 33.1 g/dL (28.0-37.0); MCV 88.1 fL (80.0-100.0); RBC 2.82 mil/uL (4.20-5.00); RDW 13.8 % (10.5-14.5); WBC 6.1 thou/uL (4.0-11.0)
[2019-01-19 04:17] VITALS: BP 129/44
[2019-01-19 07:56] VITALS: BP 132/51
[2019-01-19 12:19] VITALS: BP 100/40
[2019-01-19] MEDS ORDERED: ACCUNEB SO1.25 MG/1 INH (13:20)
[2019-01-19] MEDS ORDERED: NOVOLOG100 UNIT/1 SUBQ (13:20)
[2019-01-19] MEDS ORDERED: FELODIPINE ER10 MG PO (13:20)
[2019-01-19] MEDS ORDERED: LEVEMIR SUBQ (13:20)
[2019-01-19] MEDS ORDERED: MUCINEX600 MG PO (13:20)
[2019-01-19] MEDS ORDERED: LEVAQUIN 500 M500 M2 PO (13:20)
[2019-01-19] MEDS ORDERED: IPRAT-ALBUT 0.5-3 ML INH (13:20)
--- NOTE | 2019-01-19 14:14 | NUR ---
Bruce rec for [place] for post acute care. Faxed orders. VIANCA van for 1600. Chart copied orders faxed. Discussed with patient who reports she has had a bad experience in past and tearful in discussion of needing post acute care. Offered to contact facily and patient request to call dtr. Dtr discussed patient is not forthcoming with needs for increase care. She did not tell dtr accurate information regarding her blood sugars. She reports she did not have a bad experience in past the facility she was at provided good care. She lives with dtrs uncle and she reports he can be gone hours at a time and patient will not care for herself at home. Discussed transition is for post acute rehab and may need to inquire into increase home care needs at tx from post acute care.
--- NOTE | 2019-01-19 16:51 | NUR ---
ASSESSMENT CHARTED, VSS, ALERT AND ORIENTED, USES THE COMMODE WITH STAND BY ASSIST, PATIENT DISHARGED TO KIERA, REPORT CALLED TO KIM [phone]
--- NOTE | 2019-01-20 09:26 | HC ---
[facility] [place] [address] CONSULTATION Name: TL LANDRY Room #: 204-P [facility] IN M.R.#: [id number] Admission: 01/13/19 ������������������ Attend Phys: Jerome Wade MD Discharge: 01/19/19 ������������������ Date of : 56 Report #: [id number] THIS REPORT FOR: //name// CC: Jerome Reinoso CARDIOLOGY CONSULT HISTORY OF PRESENT ILLNESS: The patient is a 58-year-old female who is long known to myself, admitted with some progressive dyspnea, shortness of breath and heart failure exacerbation, worsening renal function and hyperkalemia, documented coronary artery disease with LAD stent placed in January of last year, 2.75 x 12 Resolute, had moderate circ and RCA disease, LV function had been preserved. There has been no stress test since the stress test was done prior to the stent placement. Some questionable chest pressure and heaviness, but mostly admitted for the progressive dyspnea, shortness of breath and hypertensive crisis. Systolic pressure reported 200 range. As of AV fistula, which has been placed some months ago and is scheduled for dialysis for the first time today. She has been on Veltassa for hyperkalemia, SARAY inhibitor had been attempted to be continued and Coreg for blood pressure. Other medications were aspirin, atorvastatin, Zetia, Effient, lisinopril was 40 mg, insulin, Lasix and the carvedilol 25 b.i.d. PAST MEDICAL HISTORY: Positive for coronary artery disease, hypertension, hypercholesterolemia, prior ankle fracture, left toe amputation, obesity, chronic kidney disease, history of TIA, possible prior seizure disorder but no recurrence. SOCIAL HISTORY: No current alcohol or drug use. She never smoked. She lives independently. 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 FAMILY HISTORY: Brother had an infarct in his 50s. ALLERGIES: SULFA. REVIEW OF SYSTEMS: Essentially negative except for stated above with progressive dyspnea and shortness of breath. She is quite tearful today. LABORATORY AND DIAGNOSTIC WORK: Potassium 5.4, creatinine 4.1, chloride 108, glucose 300 range, magnesium 1.8, calcium 8.4. H and H are 10.6 and 32, white count 13.3. PHYSICAL EXAMINATION: GENERAL: She is alert but tearful. She is having some chest pressure, heaviness, unclear etiology of this. VITAL SIGNS: Blood pressure 184/90, pulse is 80s. HEENT: Eyes reveal xanthelasmas. Pharynx is clear. [facility] [address] [place] [address] CONSULTATION Name: TL LANDRY Room #: 204-P [facility] IN [facility].#: [id number] Admission: 01/13/19 ������������������ Attend Phys: Jerome Wade MD Discharge: 01/19/19 ������������������ Date of : 56 Report #: [id number] NECK: Shows preserved upstrokes. There is question of some mildly dilated JVD. There is some jugular distention. LUNGS: Clear anteriorly, diminished in the bases. CARDIOVASCULAR: S4, S1, S2. ABDOMEN: Obese, nontender. EXTREMITIES: Reveal 1-2+ edema. Distal pulses are diminished. There is a left toe amputation healed. NEUROLOGIC: Intact. MUSCULOSKELETAL: Generalized arthritic changes with toe amputation. ASSESSMENT: 1. Acute on chronic diastolic dysfunction with underlying metabolic syndrome. 2. Diabetes. 3. Acute on chronic renal failure. 4. Refractory hypertension. 5. Coronary artery disease with prior stent to LAD, 01/2018. 6. Hypercholesterolemia. 7. Degenerative joint disease. 8. Obesity. 9. Some anxiety, depression with some mild mental deficiency. RECOMMENDATIONS AND PLAN: We will add amlodipine to this regimen. Holding on SARAY, ARB, although that would be helpful, probably more aggressive with an ARB such as olmesartan or losartan. We discussed this with Nephrology. We will check an echo Doppler looking for any diastolic parameters and LV dysfunction. Diuresis was switched to Demadex per Dr. Irving and dialysis today for volume status. She is significantly volume overloaded. We will continue to follow with you. ��������������������������������������������� <ELECTRONICALLY SIGNED> ���������������������������������������� By: Lencho Ahuja MD, FACC ��������������������������������������������� 01/20/19 0926 0904 1045 Lencho Ahuja MD, FACC /nt
--- NOTE | 2019-01-27 19:26 | HC ---
[facility] [place] [address] CONSULTATION Name: TL LANDRY Room #: 204-P [facility] IN M.R.#: [id number] Admission: 01/13/19 ������������������ Attend Phys: Jerome Wade MD Discharge: 01/19/19 ������������������ Date of : 56 Report #: [id number] THIS REPORT FOR: //name// CC: Jerome Reinoso REASON FOR THE PRESENTATION: Chest pain and shortness of breath. REASON FOR THE CONSULTATION: Chronic kidney disease. HISTORY OF PRESENT ILLNESS: Well-known patient to me. She is a 58-year-old with uncontrolled diabetes mellitus and hypertension, stage 4 chronic kidney disease, was being prepared for dialysis. She recently had a left upper extremity AV fistula placed. Unfortunately, she has issues with noncompliance. She was discharged from the hospital a few months ago after being treated for an abdominal wall abscess. She presented, reporting that she was having some issues with shortness of breath and cough. This was associated with chest-like pressure on her sternum. She also admitted to upper respiratory tract infection symptoms. She had dyspnea on exertion and orthopnea. She presented for further evaluation to the hospital. Presentation values revealed that she has significant acidosis. She had hyperkalemia with a potassium of 6. Blood sugar was significantly elevated on her presentation. She was admitted for further evaluation and management. Chest x-ray was consistent with pulmonary edema. Creatinine values on presentation was 4.3. From the renal perspective, the patient is known to have advanced chronic kidney disease and is being prepared to have hemodialysis. PAST MEDICAL HISTORY: 1. Diabetes mellitus and hypertension, both out of control. 2. Advanced chronic kidney disease. 3. Abdominal wall abscess. 4. Previous foot surgeries related to Charcot foot and diabetic complications. ALLERGIES: SULFA. SOCIAL HISTORY: Nonsmoker. She is currently disabled. REVIEW OF SYSTEMS: GENERAL: Significant for upper respiratory tract infection symptoms with weakness. CARDIOVASCULAR: As per the history of present illness. PULMONARY: As per the history of present illness. GASTROINTESTINAL: No nausea or vomiting. GENITOURINARY: No frequency, no urgency. MUSCULOSKELETAL: Back pain. NEUROLOGICAL: No syncope. [facility] [address] [place] [address] CONSULTATION Name: TL LANDRY Room #: 204-P [facility] IN [facility].#: [id number] Admission: 01/13/19 ������������������ Attend Phys: Jerome Wade MD Discharge: 01/19/19 ������������������ Date of : 56 Report #: [id number] FAMILY HISTORY: Strong family history of diabetes mellitus and hypertension along with coronary artery disease. MEDICATIONS: 1. Effient. 2. Atorvastatin 20 mg. 3. Carvedilol 25 mg twice a day. 4. Lisinopril 40 mg daily. 5. Furosemide 80 mg daily. 6. Lantus. PHYSICAL EXAMINATION: GENERAL: She is alert, oriented, in no apparent distress. VITAL SIGNS: Most recent pulse is 80. Blood pressure is 169/52. Temperature is 37.1. HEAD AND NECK: Elevated jugular venous pressure. CHEST: Decreased air entry with bilateral crackles. CARDIOVASCULAR: Distant S1 and S2 with no rub detected. ABDOMEN: Soft, obese. LOWER EXTREMITIES: +3 edema. LABORATORY DATA: Reviewed. White blood cell count 13.3, hemoglobin 10.6. Blood gas with a pH of 7.2, sodium of 141, potassium 5.4, chloride 108, BUN is 86, creatinine is 4.1. ASSESSMENT, IMPRESSION AND PLAN: 1. Advanced chronic kidney disease, stage 5. 2. Diabetes mellitus. 3. Hypertension. 4. Pulmonary edema. 5. Resume the patient's usual diuretics. 6. Watch electrolytes. 7. Control blood sugar. 8. Control blood pressure. 9. Low potassium diet. 10. The patient knows that she has a very advanced chronic kidney disease and she is being prepared for hemodialysis. She has AV fistula that was placed back in November, this should be getting mature enough to be used for dialysis in the next couple of months. As for now, there are no plans to initiate dialysis while inpatient. 11. Fluid and salt restrictions. 12. Defer the management of her other comorbid condition to the primary team. ��������������������������������������������� <ELECTRONICALLY SIGNED> ���������������������������������������� By: Juan Manuel Irving MD ��������������������������������������������� 01/27/19 1926 0848 Juan Manuel Irving MD /nt
== END 2019-01-19 16:46 | DRG 264 ==
LOC: ER 21:44 → EROBS 23:27 → ICU 23:27 → 2N 23:27 → ICU 01-14 01:19 → 2N 01-15 13:18
PROVIDERS: Emergency Medicine; Hospitalist; Internal Medicine; Nurse Practitioner Acute Care; ADMIT Internal Medicine
PROC: 0JBR0ZZ Excision of Left Foot Subcutaneous Tissue and Fascia, Open Approach (ICD-10-PCS; principal; 2019-01-15)
DX: I13.2 Hypertensive heart and chronic kidney disease with heart failure and with stage 5 chronic kidney disease, or end stage renal disease (principal); J96.01 Acute respiratory failure with hypoxia; L89.153 Pressure ulcer of sacral region, stage 3; I50.33 Acute on chronic diastolic (congestive) heart failure; N18.6 End stage renal disease; N17.9 Acute kidney failure, unspecified; J81.1 Chronic pulmonary edema; I16.1 Hypertensive emergency; N39.0 Urinary tract infection, site not specified; Z68.43 Body mass index [BMI] 50.0-59.9, adult; Z91.19 Patient's noncompliance with other medical treatment and regimen; E78.00 Pure hypercholesterolemia, unspecified; E11.22 Type 2 diabetes mellitus with diabetic chronic kidney disease; D64.9 Anemia, unspecified; E87.5 Hyperkalemia; E83.42 Hypomagnesemia; I25.10 Atherosclerotic heart disease of native coronary artery without angina pectoris; M19.90 Unspecified osteoarthritis, unspecified site; F41.9 Anxiety disorder, unspecified; F32.9 Major depressive disorder, single episode, unspecified; E11.621 Type 2 diabetes mellitus with foot ulcer; L97.529 Non-pressure chronic ulcer of other part of left foot with unspecified severity; E66.01 Morbid (severe) obesity due to excess calories; E78.5 Hyperlipidemia, unspecified; B95.2 Enterococcus as the cause of diseases classified elsewhere; B96.20 Unspecified Escherichia coli [E. coli] as the cause of diseases classified elsewhere; Z86.73 Personal history of transient ischemic attack (TIA), and cerebral infarction without residual deficits; Z89.422 Acquired absence of other left toe(s); Z95.5 Presence of coronary angioplasty implant and graft; Z79.82 Long term (current) use of aspirin; Z79.4 Long term (current) use of insulin; Z79.899 Other long term (current) drug therapy; Z88.2 Allergy status to sulfonamides; Z91.040 Latex allergy status; Z82.3 Family history of stroke; Z95.1 Presence of aortocoronary bypass graft
CPT/HCPCS: 10078; 10081

== ENCOUNTER → 2019-04-01 | Outpatient (CLI) | payer OTHER ==
[~2019-04-01] MED LIST changes: +ACCUNEB SO1.25 MG/1 INH; +FELODIPINE ER10 MG PO; +IPRAT-ALBUT 0.5-3 ML INH; +LEVAQUIN 500 M500 M2 PO; +MUCINEX600 MG PO; +VELTASSA8.4 GM PO
== END ==
LOC: HYPER 12:12
DX: E11.621 Type 2 diabetes mellitus with foot ulcer (principal); L97.522 Non-pressure chronic ulcer of other part of left foot with fat layer exposed; L97.521 Non-pressure chronic ulcer of other part of left foot limited to breakdown of skin; E11.40 Type 2 diabetes mellitus with diabetic neuropathy, unspecified; I25.10 Atherosclerotic heart disease of native coronary artery without angina pectoris; E66.01 Morbid (severe) obesity due to excess calories; Z87.01 Personal history of pneumonia (recurrent); Z79.4 Long term (current) use of insulin; Z79.01 Long term (current) use of anticoagulants; Z99.2 Dependence on renal dialysis; Z68.42 Body mass index [BMI] 45.0-49.9, adult

== ENCOUNTER → 2019-04-15 | Outpatient (CLI) | payer OTHER | LOC: HYPER 09:32 | DX: E11.621 Type 2 diabetes mellitus with foot ulcer (principal); L97.522 Non-pressure chronic ulcer of other part of left foot with fat layer exposed; S90.822D Blister (nonthermal), left foot, subsequent encounter; E11.40 Type 2 diabetes mellitus with diabetic neuropathy, unspecified; I25.10 Atherosclerotic heart disease of native coronary artery without angina pectoris; E66.01 Morbid (severe) obesity due to excess calories; Z99.2 Dependence on renal dialysis; Z79.4 Long term (current) use of insulin; Z79.01 Long term (current) use of anticoagulants; Z68.42 Body mass index [BMI] 45.0-49.9, adult; X58.XXXD Exposure to other specified factors, subsequent encounter ==

== ENCOUNTER → 2019-05-27 | Outpatient (CLI) | payer OTHER | LOC: HYPER 09:04 | DX: E11.621 Type 2 diabetes mellitus with foot ulcer (principal); L97.522 Non-pressure chronic ulcer of other part of left foot with fat layer exposed; E11.40 Type 2 diabetes mellitus with diabetic neuropathy, unspecified; E66.01 Morbid (severe) obesity due to excess calories; I25.10 Atherosclerotic heart disease of native coronary artery without angina pectoris; Z99.2 Dependence on renal dialysis; Z79.4 Long term (current) use of insulin; Z79.01 Long term (current) use of anticoagulants; Z68.42 Body mass index [BMI] 45.0-49.9, adult ==

== ENCOUNTER → 2019-06-17 | Outpatient (CLI) | payer OTHER | LOC: HYPER 13:16 | DX: E11.621 Type 2 diabetes mellitus with foot ulcer (principal); L97.522 Non-pressure chronic ulcer of other part of left foot with fat layer exposed; L89.892 Pressure ulcer of other site, stage 2; E11.40 Type 2 diabetes mellitus with diabetic neuropathy, unspecified; I25.10 Atherosclerotic heart disease of native coronary artery without angina pectoris; E66.01 Morbid (severe) obesity due to excess calories; I87.2 Venous insufficiency (chronic) (peripheral); Z99.2 Dependence on renal dialysis; Z87.01 Personal history of pneumonia (recurrent); Z79.4 Long term (current) use of insulin; Z79.01 Long term (current) use of anticoagulants; Z68.42 Body mass index [BMI] 45.0-49.9, adult ==

== ENCOUNTER → 2019-07-01 | Outpatient (CLI) | payer OTHER | LOC: HYPER 13:19 | DX: E11.621 Type 2 diabetes mellitus with foot ulcer (principal); L89.892 Pressure ulcer of other site, stage 2; L97.512 Non-pressure chronic ulcer of other part of right foot with fat layer exposed; L97.522 Non-pressure chronic ulcer of other part of left foot with fat layer exposed; E11.649 Type 2 diabetes mellitus with hypoglycemia without coma; E11.40 Type 2 diabetes mellitus with diabetic neuropathy, unspecified; I25.10 Atherosclerotic heart disease of native coronary artery without angina pectoris; E66.01 Morbid (severe) obesity due to excess calories; Z68.42 Body mass index [BMI] 45.0-49.9, adult; Z79.4 Long term (current) use of insulin; Z79.01 Long term (current) use of anticoagulants; Z79.82 Long term (current) use of aspirin; Z99.2 Dependence on renal dialysis ==

== ENCOUNTER 2019-07-22 13:01 | Inpatient (IN) | payer OTHER ==
[~2019-07-22] VITALS: Ht 170.2 cm; Wt 124.6 kg
--- NOTE | ~2019-07-22 | HC ---
[facility] [place] [address] CONSULTATION Name: TL LANDRY Room #: 457-P ADM IN M.R.#: [id number] Admission: 07/22/19 Attend Phys: Pawel Tellez MD Discharge: Date of : 56 Report #: [id number] THIS REPORT FOR: //name// cc: Travis Reinoso Steven F. DO ~ THIS REPORT FOR: //name// CC: Pawel Childers REASON FOR CONSULTATION: Wounds on both lower extremities. REASON FOR PRESENTATION: End-stage renal disease. HISTORY OF PRESENT ILLNESS: A 59-year-old with past medical history of diabetes mellitus, hypertension, and end-stage renal disease with all complications related to diabetes mellitus. She has been followed by the wound care people and they were concerned about her bilateral feet wound and the patient was admitted to be further evaluated, pending further images to rule out osteomyelitis. I was consulted to manage her end-stage renal disease. From the renal perspective, the patient was initiated on dialysis a few months ago. She is currently dialyzing every Friday, Friday, and Friday, utilizing a left AV fistula. PAST MEDICAL HISTORY: Extensive and includes the followin. Hypertension. 2. Diabetes mellitus, culminating into end-stage renal disease. 3. Hyperlipidemia. 4. Abdominal wall abscess post drainage. 5. Groin abscess post drainage. 6. Amputation of the little toe on her foot. 7. Tubal ligation. 8. Coronary artery disease. 9. Left arm AV fistula. 10. Status post CABG. FAMILY HISTORY: Her sister had heart disease. Her dad with lung cancer. SOCIAL HISTORY: She denies drug or alcohol abuse. ALLERGIES: SULFA. MEDICATIONS: 1. Carvedilol. 2. Aspirin. [facility] [address] [place] [address] CONSULTATION Name: TL LANDRY Room #: 457-P [facility] IN [facility]#: [id number] Admission: 07/22/19 Attend Phys: Pawel Tellez MD Discharge: Date of : 56 Report #: [id number] 3. Atorvastatin. 4. Insulin detemir. 5. Effient. 6. Albuterol. REVIEW OF SYSTEMS: GENERAL: No fever or chills. CARDIOVASCULAR: No chest pain or palpitation. PULMONARY: No cough or hemoptysis. GASTROINTESTINAL: No nausea or vomiting. GENITOURINARY: No frequency, no urgency. MUSCULOSKELETAL: As per the history of present illness. SKIN: Ulcers on the palm, plantar aspect of both feet. PHYSICAL EXAMINATION: GENERAL: She is alert, oriented, in no apparent distress. VITAL SIGNS: Blood pressure is 167/58, temperature 36.9, pulse rate 73, and respiratory rate is 20. HEAD AND NECK: No jugular venous distention, no bruit, no thyromegaly. CHEST: Clear to auscultation bilaterally. CARDIOVASCULAR: Regular with no rubs detected. ABDOMEN: Soft, nontender with no hepatosplenomegaly. LOWER EXTREMITIES: Trace edema with dressing applied to both feet. LABORATORY DATA: Reviewed. Hemoglobin is 10.5. Sodium is 137, potassium is 4.3. ASSESSMENT, IMPRESSION AND PLAN: 1. End-stage renal disease. 2. Diabetes mellitus. 3. Hypertension. 4. Chronic bilateral lower extremity wound. 5. We will arrange for the patient to have her usual routine hemodialysis today. 6. Primary team is addressing her ongoing wound issues. 7. Wound care. 8. Resume her home medications. By: 0829 0939 Juan Manuel Irving MD /nt
[2019-07-22 16:04] VITALS: BP 167/58
--- NOTE | 2019-07-22 16:19 | NUR ---
Patient directly admitted from Dr Mendes office. She arrived on unit at 1534 via wheelchair. Patient reports that she uses a wheelchair postpartum nurse in the home; she also uses a rolling walker. Patient goes to Dialysis Clinic ([facility] at [address] [place], [place]). She usually goes to Dialysis on Mondays, Wednesdays and Fridays from 1130 to 1530. Patient's vital signs are stable except for Systolic blood pressure being a little high at 167. Patient states, "that's because I was crying at Dr Robles's office." Patient reports "throbbing pain in right foot, level three." Dr Eckert here to see patient, orders to follow. Will continue to monitor.
[2019-07-22] MEDS ORDERED: ZETIA10 MG (16:40)
[2019-07-22] MEDS ORDERED: ESCITALOPRAM OX10 MG (16:41)
[2019-07-22] MEDS ORDERED: RENAL-VITE TAB0.8 MG (16:43)
[2019-07-22 17:30] LABS: CHOLESTEROL 168 mg/dL (<200); HDL CHOLESTEROL 51 mg/dL (>40); LDL CHOLESTEROL 76 mg/dL (<100); TC:HDL 3.3 Ratio (Not establshd); TRIGLYCERIDE 209 mg/dL (<150); VLDL 42 mg/dL (<40)
[2019-07-22 20:18] VITALS: BP 152/63
[2019-07-22 22:53] LABS: URINE BILIRUBIN NEGATIVE (Negative); URINE BLOOD 2+ (Negative); URINE CLARITY SL CLOUDY; URINE COLOR YELLOW; URINE GLUCOSE-RANDOM* 3+ (Negative); URINE KETONES NEGATIVE (Negative); URINE LEUKOCYTES TRACE (Negative); URINE NITRITE NEGATIVE (Negative); URINE PROTEIN (DIPSTICK) 3+ (Negative); URINE SPECIFIC GRAVITY >= 1.030 (1.005-1.035); URINE UROBILINOGEN 0.2 E.U./dl (0.2-1.0)
[2019-07-22 23:01] LABS: SQUAMOUS 0-3 Few /LPF (0-3)
[2019-07-22 23:02] LABS: BACTERIA 1-9 Few /HPF (None Seen); CASTS None Seen /LPF (None Seen); CRYSTALS None Seen /LPF (None Seen); URINE RBC 0-2 Rare /HPF (0-2); URINE WBC >25 Many /HPF (0-5)
[2019-07-23 01:05] VITALS: BP 135/56
--- NOTE | 2019-07-23 03:28 | NUR ---
ASSUMED CARE OF PT AT 1900HRS. PT IS AOX4 AND LETS NEEDS BE LNOWN. FALL PRECAUTION IN PLACE. ABX TREATMENT STARTED. UA AND WOUND CULTURE COLLECTED. PT REPORTS SOME PAIN BUT DID NOT REQUEST PAIN MEDS. PT WAS ABLE TO GET COMFORTABLE AND SLEEP PART OF THE SHIFT. VSS AND NO S/S OF ACUTE DISTRESS. WILL CONTINUE TO MONITOR.
[2019-07-23 04:13] VITALS: BP 120/50
[2019-07-23 06:38] LABS: HEMATOCRIT 31.7 % (37.0-47.0); HEMOGLOBIN 10.5 gm/dL (12.0-15.0); MCH 30.7 pg (26.0-34.0); MCHC 33.3 g/dL (28.0-37.0); MCV 92.2 fL (80.0-100.0); RBC 3.43 mil/uL (4.20-5.00); RDW 15.6 % (10.5-14.5); WBC 6.1 thou/uL (4.0-11.0)
[2019-07-23 07:07] LABS: ALBUMIN 2.8 g/dL (3.4-5.0); CALCIUM 8.6 mg/dL (8.5-10.1); CREATININE 5.1 mg/dL (0.6-1.0); POTASSIUM 4.3 mmol/L (3.5-5.1); TOTAL BILIRUBIN 0.7 mg/dL (<0.1-1.0); TOTAL PROTEIN 6.7 g/dL (6.4-8.2)
[2019-07-23 07:30] VITALS: BP 158/54
--- NOTE | 2019-07-23 14:28 | NUR ---
Nutrition: Assessed due to consult for 'dialysis patient.' Admit: foot ulcers, cellulitis. Per EMR, nursing note indicates wound on bottoms of bilateral feet (just below great toes). Met with pt in dialysis (normally MWF schedule). She is on a renal diet. Reports great knowledge and past education on dietary restrictions needed. Knows very well what she can/cannot have. Takes phosphate binders at home. K+ WNL at 4.3 mEq/L today; no phos available. Denies wt loss and reports a great, stable appetite. Ate large late lunch d/t missing AM meal for testing out of room. Desires daily Nepro supplement (only 1x/day given fluid restriction). Adds 19 g protein/serving. Pt has a hx high phos. Reminded pt will be limited to 4 oz milk/day and no other dairy to really limit phos intake. Low nutrition risk as no further intervention or education needs.
[2019-07-23 19:05] VITALS: BP 103/42
--- NOTE | 2019-07-23 19:37 | NUR ---
Assumed patient care at 0715. Student Nurse and Instructor assisted with medication and patient care. Patient was not given her am medications due to Dialysis. Patient has been requesting and recieving Morphine IV push for "throbbing right foot pain." Pain medication has been effective in reducing her pain. Patient to be NPO after midnight for possible amputation of part of the bone in right foot. Vital signs have been stable except for a reported "high systolic reading" per Dialysis nurse. Patient was asymptomatic and given her Carvedilol as ordered. Blood sugars have been 200-270 range today; coverage given as ordered. Patient has been very good about her fluid restriction. She had less than 800cc's of fluids today. Report given to on-coming nurse.
[2019-07-24] VITALS (7 sets, daily range): BP systolic 119–146; BP diastolic 40–74
[2019-07-24 01:11] LABS: HEP B SURFACE Ab(ANTI-HBS Non Reactive (()); HEPATITIS B SURFACE AG Negative (Negative)
--- NOTE | 2019-07-24 01:29 | NUR ---
ASSUMED CARE OF PT AFTER BEDSIDE REPORT, PT RESTING IN BED WITH NO COMPLAINTS OF ANXIETY OR PAIN. 2044 ASSESSMENT COMPLETED, SEE ASSESSMENT, PT IS ABLE TO TURN SELF IN BED, TURNS OVER TO HAVE LOTION ON HER BACK, DRESSINGS INTACT TO BILATERAL FEET CHANGED BY WOUND CARE TODAY, NO DRAINAGE NOTED. PT HAS NO MADE URINE, DRESSING TO LEFT ARM DIALYSIS FISTULA C/D/I, IV TO RAC WITH GOOD BLOOD RETURN, FLUSHES EASILY. WILL CONTINUE TO MONITOR, AND DO HOURLY ROUNDING.
--- NOTE | 2019-07-24 20:00 | NUR ---
Received awake on bed. On nothing per orem- pt informed and aware; mouth care rendered. With daughter at bedside. On room air. Vital signs stable. Pt scheduled to have surgery today- pt said procedure was not explained to her- Pre-op nurse informed to have consent signed after physician sees patient. On blood sugar monitoring- taken and recorded accordingly; sliding scale insulin given as prescribed. With SL at R AC- intact and flushing well, on IV antibiotics. With L upper arm dialysis access- pt's dialysis schedule , last dialysis was yesterday as per slot shift supervisor nurse. Assisted in ADLs. With bilateral foot dressing- C/D/I. Pt seen by Dr Bernal this morning, procedure modified and explained- new consent to be signed. Pt signed consent. Report given to pre-op nurse, pt transported via bed. Back to still from Recovery, post of vital signs taken as ordered; dressing C/D/I, kept elevated. Pt complained of pain, due PRN pain medications given as prescribed. Pt seen by Physical therapist, informed re: non-wt bearing on bilateral lower extremities, may do bed to chair transfers. Pt's O2 from Recovery titrated and eventually discontinued, saturating 96-97% on room air. Pt resumed Carb controlled, renal diet; tolerating well- no nausea, no vomiting and no abdominal pain noted. To continue monitoring patient.
[2019-07-25 03:25] VITALS: BP 140/45
--- NOTE | 2019-07-25 04:13 | NUR ---
ASSESSMENT COMPLETED.PT C/O PAIN ON HER FEET,MANAGED WITH MED.PT'S BG ELEVATED THIS SHIFT,WAS 408, MANAGED WITH 12U OF INSULIN.ELIGIBILITY SUPERVISOR ON DUTY NOTIFIED,NEW ORDER NOTED TO GIVE 4U OF LISPRO.PT'S BG RECHECKED AGAIN HOURS LATER WAS 309,NEW ORDER NOTED AGAIN AND WAS CARRIED OUT.DRSG ON HER NICK FEET C/D/I.IV ABX ORDERED.PT RESTING ON HR BED AT THIS TIME.FALL PRECAUTIONS IN PLACE,CALL LIGHT WITHIN REACH
[2019-07-25 08:09] VITALS: BP 152/61
[2019-07-25 17:13] VITALS: BP 130/40
--- NOTE | 2019-07-25 18:31 | NUR ---
Assumed care of pt at 0700. Pt a&ox4. Pain meds administered per pt request. Surgical dressing c/d/i. Waiting on rehab placement. IV antibiotic infused. Dialysis MWF. Call light within reach. Fall precautions in place.
[2019-07-26 03:40] VITALS: BP 131/59
--- NOTE | 2019-07-26 04:12 | NUR ---
ASSUMED PT CARE AT 1900. PT REPORTS PAIN /, PAIN MEDS PROVIDE RELIEF. DRESSINGS DRY AND INTACT. PM MEDS GIVEN. ATTEMPTED TO USE BEDPAN TNOIGHT WITH NO LUCK. PT TEARFUL THIS EVENING TALKING ABOUT OF . CURRENTLY SLEEPING IN BED, WILL CONTINUE TO MONITOR.
--- NOTE | 2019-07-26 07:39 | HC ---
[facility] [place] [address] CONSULTATION Name: TL LANDRY Room #: 441-P ADM IN M.R.#: [id number] Admission: 07/22/19 Attend Phys: Pawel Tellez MD Discharge: Date of : 56 Report #: [id number] THIS REPORT FOR: cc: Travis Reinoso,Dung Metzger MD ~ THIS REPORT FOR: //name// CC: Pawel Post Childers DATE OF SERVICE: 07/23/2019 CHIEF COMPLAINT: Diabetic foot ulcerations of both feet. HISTORY OF PRESENT ILLNESS: This is a 59-year-old female known to our practice who presented to the wound clinic with increasing pain and drainage from both feet. She has had chronic foot ulcerations and is admitted for further evaluation and treatment. The patient has had previous fifth ray resection on the left side. No surgical intervention on the right. PAST MEDICAL HISTORY: Positive for hypertension, diabetes mellitus, chronic kidney disease, stage 4, requiring hemodialysis; previous left groin abscess, status post incision and drainage, congestive heart failure, coronary artery disease, and Charcot deformity. FAMILY HISTORY: Positive for heart disease in her sister, cancer in her father, and diabetes in her sister. SOCIAL HISTORY: Negative for any history of alcohol, tobacco or drug use. MEDICATIONS: Include Coreg, aspirin, Lipitor, Veltassa, Effient, Plendil, Mucinex, Levemir. ALLERGIES: LATEX AND SULFA. REVIEW OF SYSTEMS: CONSTITUTIONAL: The patient denies fever, chills or weight loss. NEUROLOGICAL: The patient denies focal weakness, numbness or tingling. EYES: The patient denies visual changes, redness, or drainage. ENT: The patient denies earache, nasal drainage, or sore throat. CARDIOVASCULAR: The patient denies chest pain, palpitations or diaphoresis. PULMONARY: The patient denies cough or shortness of breath. GASTROINTESTINAL: The patient denies nausea, vomiting, diarrhea or abdominal [facility] [address] [place] [address] CONSULTATION Name: FRANTZTL Room #: 441-P [facility] IN ..#: [id number] Admission: 07/22/19 Attend Phys: Pawel Tellez MD Discharge: Date of : 56 Report #: [id number] pain. ORTHOPEDIC: The patient is aware of the ulcerations on both feet very much painful bilaterally, more so, on the left than the right. NEUROLOGIC: The patient has some diminished light touch sensation in her extremities with some tingling. Other systems in a 14-point review of systems are negative. PHYSICAL EXAMINATION: VITAL SIGNS: Include temperature 36.7, pulse 70, respiratory rate 18, and blood pressure 150/54. GENERAL: This is a chronically ill-appearing female patient who appears to be in no distress. HEENT: Head normocephalic. Nose and throat are clear. NECK: Supple. LUNGS: Clear. HEART: Regular rhythm. ABDOMEN: Bowel sounds present. EXTREMITIES: Lower extremities demonstrate palpable distal pulses. She has ulceration near the fifth MTP. It is tender. There is some drainage and minimal surrounding periwound erythema. Left fourth MTP also ulcerated with a little greater depth and some drainage present. NEUROLOGIC: The patient is alert and oriented and appropriate. LABORATORY DATA: Sodium 137, potassium 4.3, chloride 98, CO2 of 29, BUN 38, creatinine 5.1, glucose 178. Albumin is 2.8. White blood cell count 6.1, hemoglobin of 10.7. MRI of both feet demonstrates an osteomyelitis of the fourth metatarsal head. Reactive edema not entirely excluded on the right side. No evidence to suggest osteomyelitis at present and hyperemia is more favored there. CLINICAL IMPRESSION: 1. Diabetic foot ulcerations of both feet. 2. Osteomyelitis, left fifth MTP region. 3. Diabetic peripheral neuropathy. 4. History of peripheral arterial disease. 5. End-stage renal disease, requiring hemodialysis. RECOMMENDATIONS: At this point in time, we will recommend Xeroform gauze followed by dry gauze dressings daily. This will facilitate easier dressing changes, which she will need orthopedic consultation for possible bony debridement, was started on intravenous antibiotic therapy per Infectious Disease recommendations. Continuation of current medications and nutritional support to maximize wound healing. We will need to offload the feet for now. [address] [address] CONSULTATION Name: TL LANDRY Javed Room #: 441-P [facility] IN M.R.#: [id number] Admission: 07/22/19 Attend Phys: Pawel Tellez MD Discharge: Date of : 56 Report #: [id number] I appreciate being asked to see her in consultation. <ELECTRONICALLY SIGNED> By: Dung Chirinos MD 07/26/19 0739 2331 0058 Dung Chirinos MD /nt
[2019-07-26 08:00] VITALS: BP 131/53
--- NOTE | 2019-07-26 11:19 | NUR ---
Received awake on bed. Due medications given as prescribed, able to swallow meds w/o difficulty. On room air. Vital signs stable. On carb controlled, renal diet- tolerating well; no nausea, no vomiting and no abdominal pain noted. A+Ox4. on blood sugar monitoring- taken and recorded accordingly, with sliding scale insulin prescribed. Taking and tolerating supplements well. with SL at R FA- intact and flushing well, on IV antibiotics. With L upper arm fistula for dialysis- dialysis schedule -, with schedule for today, a/w call back from dialysis nurse re: time; dressing C/D/I with limb alert. On latex allergy protocol. With bilateral leg dressing, C/D/I- s/p amputation; kept elevated. Assisted in ADLs. Complained of pain, due PRN pain meds given as prescribed. Pt taken for dialysis at around 10am via bed by volunteer transport- Dr Boykin informed that pt currently having dialysis during his rounds. Falls bundle in place. To continue monitoring patient.
--- NOTE | 2019-07-26 12:35 | NUR ---
chart review. pt over in dialysis room. offered to come back later to visit and lawrence stated " no its ok, my show not on yet."/lawrence. intro to dcp, transition of care, home health and skilled rehab. pt is a & o x 3 with forgetfulness and confusion at time. she reported "live in a apartment with brother. i used to drive us. he was in care accident when he was 3 years old. he can care for himself, he can cook for him self but he forgets to cook for me and i cant stand with pain right know. on hh with [facility]. i been to [facility] before but i think i should probably go to rehab closed to mo side, still need tx to feet and cant cook. go to dialysis at [facility]. use transportation from [employer] but need you to call and get it extended for the whole month because i cant drive and i don't use medical ride anymore. i would prefer to go home but on friday i might not get any food if i cant cook. by brother is in his 70's and sometimes not home."/lawrence. active listening and support during visit. she was tearful when talking about food. " i really should go to rehab on mo side closer to her because of help i need. i would like you to tell them to get my lunch"/pt. dialysis nurse education that she cant get while on the machine, she became more tearful and asked if i could have 4s hold her lunch. cm passed n information to us of 4s rt lunch request by lawrence. will cont following as needed for dc needs.
--- NOTE | 2019-07-26 16:06 | O ---
[facility] [place] [address] OPERATIVE REPORT Name: TL LANDRY Room #: 441-P [facility] IN M.R.#: [id number] Admission: 07/22/19 Attend Phys: Pawel Tellez MD Discharge: Date of : 56 Report #: [id number] THIS REPORT FOR: cc: Travis Reinoso Steven F. DO Abraham, Scott M. MD ~ THIS REPORT FOR: //name// CC: Pawel Post Childers DATE OF SERVICE: 07/24/2019 PREOPERATIVE DIAGNOSES: 1. Right foot fifth metatarsal head osteomyelitis with underlying ulcer. 2. Left foot fourth metatarsal head osteomyelitis with underlying ulceration. POSTOPERATIVE DIAGNOSES: 1. Right foot fifth metatarsal head osteomyelitis with underlying ulcer. 2. Left foot fourth metatarsal head osteomyelitis with underlying ulceration. PROCEDURES: 1. Right foot fifth ray amputation. 2. Left foot fourth ray amputation. SURGEON: Maximino Bernal MD. ROOM SERVICE ASSOCIATE: Jane Garza PA-C. ANESTHESIA: General. TOURNIQUET TIME: 8 minutes for bilateral lower extremities. COMPLICATIONS: None. SPECIMENS: Left fourth ray and right fifth ray were sent for pathology. CONDITION UPON LEAVING THE OPERATING ROOM: Stable. INDICATIONS FOR PROCEDURE: The patient is a 59-year-old female with end-stage renal disease and diabetes. She has had ulcerations over the lateral surface of her bilateral feet. She has had a previous fifth ray amputation and thus, the ulceration was coming from the fourth metatarsal head. On the right foot, it was from the fifth metatarsal head. She had an MRI scan showing to have early [facility] [address] [place] [address] OPERATIVE REPORT Name: TL LANDRY Javed Room #: 441-P ADM IN ..#: [id number] Admission: 07/22/19 Attend Phys: Pawel Tellez MD Discharge: Date of : 56 Report #: [id number] osteomyelitis of the metatarsal heads and this presumably was the cause of her ulcerations. After discussion with she and her family, they have elected for right fifth ray amputation and left fourth ray amputation. DESCRIPTION OF PROCEDURE: Risks, benefits, alternatives, complications were discussed in detail with the patient including but not limited to risk of anesthesia, risk of damage to nerves, arteries, blood vessels, risk for continued infection, bleeding and need for reoperation. Informed consent was obtained from the patient. Bilateral lower extremities were appropriately marked in the preoperative holding area. She is already on IV antibiotics for treatment of her chronic ulcers and these were continued. She was brought to the operating room and placed in supine position on operating room table. LMA anesthesia was induced without complication. Tourniquet was placed on bilateral calves and bilateral lower extremities were prepped and draped in normal sterile fashion. Timeout was performed properly identifying the patient and procedure as well as the instrumentation. All in the operating room were in agreement. Her left lower extremity was elevated, tourniquet was inflated. Tourniquet time was 8 minutes on the left. The previous lateral scar over the lateral aspect of her foot was then opened with a #10 blade. A #10 blade was used to incise around the base of the fourth toe and this incision was taken down to the metatarsal and Bovie cautery was used to dissect out the metatarsal itself and metatarsal was then transected at its base with a small oscillating saw. The bone was removed as well as the fourth toe and sent for pathology. Tourniquet was deflated. Hemostasis was obtained with Bovie cautery. Wound was thoroughly irrigated and closed with 2-0 nylon. Attention was then turned to the right lower extremity, this was elevated, tourniquet was inflated. Tourniquet time on the right was 8 minutes. A lateral incision was made centered over the fifth metatarsal. This was taken down around the base of the fifth toe and dissection was then taken around the fifth metatarsal with Bovie cautery. Oscillating saw was used to transect the fifth metatarsal at its base and the bone was removed as well as the fifth toe. Wound was thoroughly irrigated, tourniquet was deflated. Hemostasis was obtained with Bovie cautery. An incision was closed with 2-0 nylon. Soft dressing of Adaptic, 4 x 4, Webril, Magdiel wrap were applied to bilateral feet. The patient tolerated this procedure well and went to recovery room under care of anesthesia postoperatively. <ELECTRONICALLY SIGNED> By: Maximino Bernal MD 07/26/19 1606 1205 1506 Maximino Bernal MD /nt
[2019-07-26 17:32] VITALS: BP 130/46
--- NOTE | 2019-07-26 19:50 | HC ---
[facility] [place] [address] CONSULTATION Name: TL LANDRY Room #: 460-P ADM IN M.R.#: [id number] Admission: 07/22/19 Attend Phys: Pawel Tellez MD Discharge: Date of : 56 Report #: [id number] THIS REPORT FOR: cc: Travis Reinoso Steven F. DO Geha, Daniel J. MD ~ THIS REPORT FOR: //name// CC: Pawel Childers DATE OF SERVICE: 07/23/2019 INFECTIOUS DISEASE CONSULTATION REASON FOR CONSULTATION: I was asked to evaluate concerning diabetic foot wounds and infection. HISTORY OF PRESENT ILLNESS: The patient is a 59-year-old who noticed increased pain and swelling involving the lateral aspect of both distal feet. Over the last 2 weeks, she has been unable to wear shoes. No fever, chills or sweats. No specific trauma noted. She does have peripheral neuropathy and peripheral vascular disease. She undergoes hemodialysis 3 days a week via left upper extremity AV fistula. She has had minimal drainage. No recent antibiotic course. Has been trying local wound care. She was seen by Dr. Childers in the outpatient clinic and hospitalized for further evaluation. The patient does remain on hemodialysis. She does produce urine. She had a Jurado catheter placed. Continues with wound care and has been seen by Orthopedic Surgery. PAST MEDICAL HISTORY: Diabetes, hypertension, end-stage renal disease, previous abdominal wall abscess, Charcot foot changes. ALLERGIES: SULFA. MEDICATIONS: As noted on her MAR, now on vancomycin and Zosyn. FAMILY HISTORY: Noncontributory. SOCIAL HISTORY: Nonsmoker, no significant alcohol intake. REVIEW OF SYSTEMS: Ten-point review of systems was negative other than what has been described above. PHYSICAL EXAMINATION: [facility] [address] [place] [address] CONSULTATION Name: TL LANDRY Javed Room #: 460-P [facility] IN [facility].#: [id number] Admission: 07/22/19 Attend Phys: Pawel Tellez MD Discharge: Date of : 56 Report #: [id number] VITAL SIGNS: Afebrile and hemodynamically stable. GENERAL: The patient was alert and cooperative and pleasant. Currently on hemodialysis via left upper extremity AV fistula. She was obese. SKIN: With no rash noted. Other comments will be on her extremity examination. No palpable adenopathy. EYES: Without scleral icterus. MOUTH: Without mucositis. NECK: Supple. LUNGS: Clear to auscultation. HEART: Regular, without murmur, gallop or rub. ABDOMEN: Soft, obese, and nontender. No hepatosplenomegaly or mass. GENITOURINARY: External genitalia without lesion and has an indwelling Jurado catheter. RECTAL: Not performed. EXTREMITIES: With a fluctuant area over the right lateral plantar fifth metatarsal head region. This area was exquisitely tender. Surrounding erythema. A small amount of bloody purulent drainage was identified. The fifth toe had good capillary refill. The left foot had significant changes from Charcot. There was a wound over the plantar aspect of her lateral foot over the metatarsal head. There was exquisite tenderness to this region. Mild surrounding erythema. No definite fluctuance. No drainage. Sensation was diminished in both feet. Strength in her lower extremities was weak in comparison to strength in her upper extremities. PSYCHIATRIC: Mood was normal. BACK: Nontender. LABORATORY STUDIES: Reviewed. CULTURES: Reviewed. MRI scan of both feet reviewed. IMPRESSION: Bilateral diabetic foot wounds with secondary infection. It appears that the left fifth metatarsal head would have changes consistent with osteomyelitis. The bony change to the right fifth metatarsal head was minimal. There was small abscess on the right. Evident tissue loss on both feet as noted. 1. End-stage renal disease. 2. Peripheral neuropathy. 3. Peripheral vascular disease. 4. Coronary artery disease. RECOMMENDATIONS: We will continue IV antibiotic therapy pending culture results. Agree with Orthopedic Surgery evaluation [place] [address] CONSULTATION Name: ANNE MARIE LANDRYCm Burt Room #: 460-P [facility] IN M.R.#: [id number] Admission: 07/22/19 Attend Phys: Pawel Tellez MD Discharge: Date of : 56 Report #: [id number] repeat cultures at the time of surgery. The duration of antibiotic therapy will be determined following surgical intervention and surgical findings. <ELECTRONICALLY SIGNED> By: Abdi Klein MD 07/26/19 1950 1955 0025 Abdi Klein MD /nt
[2019-07-26 20:18] VITALS: BP 135/72
--- NOTE | 2019-07-27 02:27 | NUR ---
ASSUMED CARE OF PT AT 1900HRS. PT IS AOX4 AND LETS NEEDS BE KNOWN. FALL RPRECAUTION IN PLACE. PT REPORTED SOME PAIN AND WAS TREATED WITH PRN PAIN MEDS. PT WAS PLEASANT. ABX TREATMENT CONTINUED. PT WAS ABLE TO GET COMFORTABLE AND SLEEP PART OF THE SHIFT. VSS AND NO S/S OF ACUTE DISTRESS. WILL CONTINE TO MONITOR.
[2019-07-27 08:06] VITALS: BP 129/49
--- NOTE | 2019-07-27 09:46 | NUR ---
cm brought pt list [facility] choice for snf per pt request at yesterdays visit. lawrence up in bed stated " well if i can go home with [facility] that will be better for me and i might need bsc. not sure if i can bear any wt . i live in [facility] so i think going home would be better unless i am non wt bearing and if i am i will need bsc for next to by bed at home but thank you for the list if need it"/lawrence. pt did not want to pick any facility to send referral to if needed for skilled. if pt goes skilled [facility]. will cont following as needed for dc needs.
--- NOTE | 2019-07-27 13:22 | NUR ---
DISCHARGE PLANNING. POST ACUTE RECOMMENDED. PATIENT REFERRAL FA[facility]ED TO [facility] PER REQUEST. CALL PLACED TO [facility] ADMISSIONS TO NOTIFY. INSURANCE AUTH WILL NEED TO BE OBTAINED. AWAITING RESPONSE. FOLLOWING.
[2019-07-27 15:13] VITALS: BP 127/45
[2019-07-27 19:29] VITALS: BP 122/34
--- NOTE | 2019-07-27 19:57 | NUR ---
Received awake on bed. Due medications given as prescribed, able to swallow meds w/o difficulty. On room air. Vital signs stable. On blood sugar monitoring- taken and recorded accordingly, with sliding scale insulin given as prescribed. On carb controlled, renal diet; tolerating well, no nausea, no vomiting and no abdominal pain noted, pt compliant with supplements. With L upper arm dialysis fistula- M-W-F dialysis schedule. With SL at R AC- intact and flushing well. Latex allergy protocol observed. Complained of pain, due PRN pain medication given as prescribed. Wound dressing changed today. Checked that pt has not been able to have a bowel movement for 4 days- PRN laxative given as prescribed. Pt visited by relatives today. To continue monitoring patient.
--- NOTE | 2019-07-28 02:56 | NUR ---
ASSUMED CARE OF PT AT 1900HRS. PT IS AOX4 AND LETS NEEDS BE KNOWN. FALL PRECAUTION IN PLACE. ABX TREATMENT CONTINUED. PT REPORTED SOME PAIN AND WAS TREATED WITH PRN PAIN MEDS. PT IS SCHEDULED FOR DAILYSIS IN THE AM. PT WAS ABLE TO GET COMFORTABLE AND SLEEP PART OF THE SHIFT. VSS AND NO S/S OF ACUTE DISTRESS. WILL CONTINUE TO MONITOR.
[2019-07-28 07:40] VITALS: BP 153/51
--- NOTE | 2019-07-28 08:20 | NUR ---
CM VISITED WITH PT AT BEDSIDE RT OUTSTANDING BALANCE AT [facility] AND THEY CANTED ACCEPT FOR SNF. " OK WELL HOW MUCH TO I OWE THEM, SOMETIME AFTER GET HOME FROM DIALYSIS I AM TO TIRED AND DON'T LOOK AT THE MAIL MY BROTHER DOES AND DOESNT GIVE IT TO ME. [facility] WOULD BE MY NEXT CHOICE SINCE NOT FAR FROM WHERE I GO TO DIALYSIS"/TL. BEDSIDE NURSE STILL IN ROOM WITH PT AT END OF VISIT. REFERRAL TO BE SENT TO [facility] AND HAVE [facility] LET PT KNOW HER BALANCE.
--- NOTE | 2019-07-28 11:08 | PATH ---
[facility] [address] [place] [address] PATHOLOGY RPT PROCEDURE Name: ANNE MARIE PARSONCm Burt Room #: 460-P ADM IN M.R.#: [id number] Admission: 07/22/19 Date of : 56 Discharge: Report #: [id number] Path Case #: [id number] [facility] Accession Number: [id number] . 01 Material submitted: . PART A: toe - LEFT 4TH RAY AMPUTATION. Modifiers: left PART B: toe - RIGHT 5TH RAY AMPUTATION. Modifiers: right . 01 Clinical history: . Bilateral osteomyelitis, left fourth metatarsal head, right fifth metatarsal head . 02 Diagnosis: A. "Left fourth ray amputation": - Toe with focal mild chronic inflammation in dermis of skin. - Underlying bone with no pathologic diagnosis. - Separate segment of bone and hyaline cartilage with no pathologic diagnosis. . B. "Right fifth ray amputation": - Toe with focal mild chronic inflammation in dermis of skin. - Underlying bone with no pathologic diagnosis. - Separate segment of bone and hyaline cartilage with no pathologic diagnosis. . (SK:pit 07/28/2019) QTP 07/28/2019 0801 Local . 02 Electronically signed: . Travis Sofia MD, Pathologist NPI- [id number] . 01 Gross description: . A. The specimen is received in formalin, labeled "Ivania Parson, left fourth ray amputation". Received is an amputated digit measuring 4.1 x 1.8 x 1.7 cm in greatest dimensions. The bone margin is jagged in appearance. The bone and soft tissue margins are inked black. The nail is present displaying a pale carpenter and slightly thickened appearance. The epidermal surface is pale carpenter and grossly unremarkable with no grossly distinct nodules or lesions. A full-thickness longitudinal cross-section is submitted from proximal to distal aspects in cassettes A1 and A2, following decalcification. . Also received within the container is an additional segment of bone displaying one convex, disarticulated margin and one blunt, transected margin measuring 4.0 x 1.5 x 1.3 cm in greatest dimensions. The transected margin is inked black. A full-thickness longitudinal [address] [address] PATHOLOGY RPT PROCEDURE Name: IVANIA PARSON Room #: 460-P ADM IN M.R.#: [id number] Admission: 07/22/19 Date of : 56 Discharge: Report #: [id number] Path Case #: [id number] cross-section is submitted from transected to disarticulated aspects in cassettes A3 and A4, following decalcification. . B. The specimen is received in formalin, labeled "Ivania Parson, right fifth ray amputation". Received is an amputated dated digit measuring 4.2 x 1.7 x 1.5 cm in greatest dimensions. The bone margin is smooth and concave in appearance, consistent with disarticulation. The bone and soft tissue margins are inked black. The nail is present displaying a pale carpenter and grossly unremarkable appearance. The epidermal surface is pale carpenter and slightly wrinkled in appearance with no grossly distinct nodules or lesions. A full-thickness longitudinal cross-section is submitted from proximal to distal aspects in cassettes B1 and B2, following decalcification. . Also received within the specimen container is an additional segment of bone displaying one convex, disarticulation margin, and one blunt, transected margin measuring 4.3 x 1.9 x 1.0 cm in greatest dimensions. The transected margin is inked black. A full-thickness longitudinal cross-section is submitted from transected to disarticulated aspects in cassettes B3 and B4, following calcification. (CAA; 07/26/2019) QAC/QAC 07/28/2019 0759 Local . 02 Pathologist provided ICD-10: L08.9 . 02 CPT . 765154, 814586, 326530, 947274 Specimen Comment: A courtesy copy of this report has been sent to [phone] Specimen Comment: Report sent to Performed at: [address], [place] [id number] MD Mendoza Lacy MD Phone: [phone] Performed at: [address] [id number] MD Rina Matamoros MD Phone: [phone]
--- NOTE | 2019-07-28 11:32 | NUR ---
Received awake on bed. Due medications given as prescribed, able to swallow meds w/o difficulty. On room air. Vital signs stable. A+Ox4. On blood sugar monitoring- taken and recorded accordingly, with sliding scale insulin- given as prescribed. On carb controlled, renal diet- tolerating well; no nausea, no vomiting and no abdominal pain noted- compliant with supplements. Latex allergy protocol observed. With L upper arm fistula- dressing C/D/I, dialysis schedule - noted, a/w dialysis time today. With SL at R AC- intact. With bilateral leg dressings in place, C/D/I. Complained of pain, due PRN pain meds given as prescribed. Pt visited by relative today. Falls bundle in place. Assisted in ADLs.
[2019-07-28 18:10] VITALS: BP 125/55
[2019-07-28 19:56] VITALS: BP 127/52
--- NOTE | 2019-07-29 07:54 | NUR ---
ASSUMED PT CARE AROUND 1930. AXOX4. BILATERAL FOOR DRESSINGS CDI. PAIN MEDICATED PER MD ORDER. NO S/S ACUTE DISTRESS NOTED OR REPORTED AT THIS TIME. CARE TRANSFERRED TO INCOMING RN AT THIS TIME.
[2019-07-29 08:28] VITALS: BP 144/56
[2019-07-29 08:32] VITALS: BP 144/56
--- NOTE | 2019-07-29 08:53 | NUR ---
Nutrition: Seen for early follow up. Visited w/ pt at breakfast. Continues on a renal diabetic diet, eating very well. Meal average = 86% per the last 13 meals since 07/24. On daily Nepro oral nutrition supplement with 100% intake the last 4 days for an added 425 kcals, 19 g protein to help replace protein losses w/ dialysis. On dialysis MWF. Majority of BGs < 180 mg/dl, range of 121 -216 mg/dl on 07/28-07/29. On 40 units Lantus, 6 units Humalog AC, plus SSI. No new K+ or Phos labs available, but on phosphate binder w/ calcium acetate TID before meals. Pt had a flat affect during visit, but denies any new nutrition concerns/questions. Voices good protein intake w/ eggs, meat, etc. No new interventions indicated. Keep as low nutrition risk.
[2019-07-29] MEDS ORDERED: ZOSYN 3.3753.375 GM IV (15:10)
--- NOTE | 2019-07-29 17:53 | NUR ---
Assumed patient care at 0715. Vital signs stable. Pain continues to incision sites in bilateral feet. IV Morphine given q 4 hours as ordered upon patient's request. Appetite is excellent; she consumed 100% at breakfast and lunch. Patient educated per Discharge at 1630; she began crying, as no one told her that she was Discharging to a SNF until this nurse did. Patient left with right forearm IV intact, as IV medications are to continue at facility. Non-Emergent Transport arrived at approximately 1700. Patient left with Transport, Discharge Instructions, all belongings at approximately 1715.
== END 2019-07-29 17:15 | DRG 617 ==
LOC: HYPER 13:01 → 4W 14:58 → HYPER 15:41 → 4S 07-23 17:51 → 4W 07-26 17:43
PROVIDERS: Hospitalist; ADMIT Hospitalist
DX: E11.69 Type 2 diabetes mellitus with other specified complication (principal); N39.0 Urinary tract infection, site not specified; I50.32 Chronic diastolic (congestive) heart failure; E44.0 Moderate protein-calorie malnutrition; Z68.41 Body mass index [BMI] 40.0-44.9, adult; M86.8X7 Other osteomyelitis, ankle and foot; I13.2 Hypertensive heart and chronic kidney disease with heart failure and with stage 5 chronic kidney disease, or end stage renal disease; E78.5 Hyperlipidemia, unspecified; N18.6 End stage renal disease; I25.10 Atherosclerotic heart disease of native coronary artery without angina pectoris; E11.22 Type 2 diabetes mellitus with diabetic chronic kidney disease; E11.42 Type 2 diabetes mellitus with diabetic polyneuropathy; I70.8 Atherosclerosis of other arteries; E66.01 Morbid (severe) obesity due to excess calories; E11.51 Type 2 diabetes mellitus with diabetic peripheral angiopathy without gangrene; E11.621 Type 2 diabetes mellitus with foot ulcer; Z91.040 Latex allergy status; Z83.3 Family history of diabetes mellitus; Z89.439 Acquired absence of unspecified foot; Z95.1 Presence of aortocoronary bypass graft; Z82.49 Family history of ischemic heart disease and other diseases of the circulatory system; Z80.1 Family history of malignant neoplasm of trachea, bronchus and lung; Z88.2 Allergy status to sulfonamides; Z81.8 Family history of other mental and behavioral disorders; Z79.82 Long term (current) use of aspirin; Z79.899 Other long term (current) drug therapy
CPT/HCPCS: 10047; 10102; 32100; 50010; 50101; 50386; 50951; 56525; 57091; 57103; 62110; 62900; 70005

== ENCOUNTER → 2019-08-10 | Outpatient (CLI) | payer OTHER ==
[~2019-08-10] MED LIST changes: +ESCITALOPRAM OX10 MG; +RENAL-VITE TAB0.8 MG; +ZETIA10 MG; +ZOSYN 3.3753.375 GM IV
== END ==
LOC: HYPER 08:48
DX: T87.89 Other complications of amputation stump (principal); E11.621 Type 2 diabetes mellitus with foot ulcer; L97.522 Non-pressure chronic ulcer of other part of left foot with fat layer exposed; L84 Corns and callosities; S91.332A Puncture wound without foreign body, left foot, initial encounter; S90.821A Blister (nonthermal), right foot, initial encounter; S90.822A Blister (nonthermal), left foot, initial encounter; E11.649 Type 2 diabetes mellitus with hypoglycemia without coma; E11.10 Type 2 diabetes mellitus with ketoacidosis without coma; E11.40 Type 2 diabetes mellitus with diabetic neuropathy, unspecified; E66.01 Morbid (severe) obesity due to excess calories; I25.10 Atherosclerotic heart disease of native coronary artery without angina pectoris; Z68.42 Body mass index [BMI] 45.0-49.9, adult; Z99.2 Dependence on renal dialysis; Z79.4 Long term (current) use of insulin; Z79.01 Long term (current) use of anticoagulants; X58.XXXA Exposure to other specified factors, initial encounter; Y93.89 Activity, other specified; Y92.89 Other specified places as the place of occurrence of the external cause; Y99.8 Other external cause status; Y83.5 Amputation of limb(s) as the cause of abnormal reaction of the patient, or of later complication, without mention of misadventure at the time of the procedure

== ENCOUNTER → 2019-08-26 | Outpatient (CLI) | payer OTHER ==
[~2019-08-26] VITALS: Ht 170.2 cm; Wt 118.0 kg
[~2019-08-26] MED LIST changes: +CHILDREN'S15 MG/1 M2 PO
[2019-08-26 10:16] VITALS: BP 118/50
[2019-08-26 10:30] LABS: ABSOLUTE NEUTROPHILS 5.9 thou/uL (1.4-8.2); BASOPHILS 0.6 % (0.0-2.0); EOSINOPHILS 1.5 % (0.0-3.0); HEMATOCRIT 33.9 % (37.0-47.0); HEMOGLOBIN 11.4 gm/dL (12.0-15.0); LYMPHOCYTES 28.1 % (24.0-44.0); MCH 30.9 pg (26.0-34.0); MCHC 33.7 g/dL (28.0-37.0); MCV 91.8 fL (80.0-100.0); MONOCYTES 7.9 % (1.0-8.0); PLATELET COUNT 242 thou/uL (150-400); POLYS 61.9 % (36.0-66.0); RBC 3.69 mil/uL (4.20-5.00); RDW 14.6 % (10.5-14.5); WBC 9.5 thou/uL (4.0-11.0)
[2019-08-26 10:38] LABS: CALCIUM 9.4 mg/dL (8.5-10.1); CREATININE 4.3 mg/dL (0.6-1.0); POTASSIUM 3.8 mmol/L (3.5-5.1)
--- NOTE | 2019-08-26 15:54 | CATHLAB ---
[facility] [place] [address] INVASIVE PROCEDURE REPORT Name: TL LANDRY Javed Room #: [facility] GLENNA IbanezKenneth#: [id number] Admission: 08/26/19 Attend Phys: Lencho Ahuja MD, Discharge: Date of : 56 Report #: [id number] THIS REPORT FOR: cc: Travis Reinoso Steven F. DO Mancuso, Gerald M. MD [facility] ~ APPROVED REPORT Study performed: 08/26/2019 12:16:44 Patient Details Patient Status: Out-Patient Room #: The patient is a 59 year-old female Event Personnel Lencho Ahuja Director [employer], Ana Lambert RTClif, DIRECTOR SAFETY Monitor, Jolene Cuevas RN RN, Lida Ashraf Procedures Performed Art Access - R femoral artery* Left Heart Cath w/or w/o Coronaries 1148810 [facility] Aortogram Abdominal Peripheral Angio 621160 63860 Initial Mod Sed Same Phys/QHP Gr5y 315704 Hemostasis w/ Mynx 89918 Mod Sed Same Phys/QHP Ea 640462 Indication Positive stress test Procedure Narrative The Right Groin^ was infiltrated with 1% Lidocaine subcutaneous anesthesia. A PINNACLE 6FR Sheath #[id number] sheath was inserted into the RFA^. Coronary angiography was performed using coronary diagnostic catheters. The right coronary system was accessed and visualized with a JR4 catheter. The left coronary system was accessed and visualized with a JL4 catheter. The left ventricle was accessed and visualized with a Pigtail catheter. Left ventriculogram was performed in 30 degree projection. An aortogram of the abdominal aorta was performed. Closure device was deployed with a 6 Fr MYNXGRIP 6/7F #[id number]. The patient tolerated the procedure well and there were no complications associated with the procedure. There was no hematoma. Intraoperative Conscious Sedation Sedation start time: 13:12 Case end Time: 13:[address] [facility] [place] [address] INVASIVE PROCEDURE REPORT Name: TL LANDRY Room #: REG [facility]#: [id number] Admission: 08/26/19 Attend Phys: Lencho Ahuja, Discharge: Date of : 56 Report #: [id number] Versed 1 mg Fluoro Time: 1.24 minutes Dose: DAP 4292.20 cGycm2 468 mGy Contrast Type and Amount: Omnipaque 95 ml Hemodynamics The aortic pressure is 146/59 mmHg with a mean of 91 mmHg. The left ventricular pressure is 149/13 mmHg with a mean of mmHg. The left ventricular end diastolic pressure is 31 mmHg. Conclusion 1. Normal left ventricular size and systolic function EF 60% #2 abdominal aorta is mildly ectatic no aneurysm. #3 left main free of disease giving rise to LAD and circumflex #4 LAD diffusely diseased proximal mid stent widely patent with diffuse distal disease no indication for intervention #5 circumflex OM with eccentric lesions and calcification proximal mid vessel lesion of 60 to 70% at a marginal bifurcation unchanged continue to treat medically. #6 dominant right coronary eccentric 50 to 60% proximal mid and mid distal lesions these are unchanged something to continue to follow no high-grade occlusion. Recommendations and plan continue aggressive risk factor modification. No current indication for intervention. <ELECTRONICALLY SIGNED> By: Lencho Ahuja MD, [facility] 08/26/19 1553 1553 1553 Lencho Ahuja MD, FACC /INF
--- NOTE | 2019-08-26 16:18 | EKG ---
[facility] [place] [address] ELECTROCARDIOGRAM REPORT Name: TL LANDYR Room #: REG [facility]#: [id number] Admission: 08/26/19 Attend Phys: Lencho Ahuja MD, Discharge: Date of : 56 Report #: [id number] THIS REPORT FOR: cc: Travis Reinoso Steven F. DO Couchonnal, Luis F. MD ~ THIS REPORT FOR: //name// [facility] Test Date: 2019-08-26 Test Time: 10:15:47 Pat Name: TL LANDRY Department: Room: Gender: F Supervisor Baking: Amy MITCHELL : 1960 Requested By: Lencho Ahuja Order Number: [id number] MD: Didier Dias Measurements Intervals [place] Rate: 62 P: 23 ND: 185 QRS: 16 QRSD: 88 T: 29 QT: 420 QTc: 427 Interpretive Statements Sinus rhythm Low voltage, precordial leads Compared to ECG 01/13/2019 21:43:18 Myocardial infarct finding no longer present ST (T wave) deviation no longer present Electronically Signed On 08-26-2019 16:17:35 BOTTOM WORKER by Didier Dias [email or web address] <ELECTRONICALLY SIGNED> By: Didier Dias MD 08/26/19 1617 1015 1015 Didier Dias MD /EPI
== END | disposition home or self-care (01) ==
LOC: CATH 08:46 → HYPER 10:44 → CATH 13:13
PROVIDERS: Internal Medicine Cardiovascular Disease
DX: R94.39 Abnormal result of other cardiovascular function study (principal); I25.10 Atherosclerotic heart disease of native coronary artery without angina pectoris; I77.811 Abdominal aortic ectasia; I13.0 Hypertensive heart and chronic kidney disease with heart failure and stage 1 through stage 4 chronic kidney disease, or unspecified chronic kidney disease; E11.21 Type 2 diabetes mellitus with diabetic nephropathy; N18.9 Chronic kidney disease, unspecified; I50.9 Heart failure, unspecified; E11.10 Type 2 diabetes mellitus with ketoacidosis without coma; I73.9 Peripheral vascular disease, unspecified; E66.09 Other obesity due to excess calories; Z98.890 Other specified postprocedural states; Z79.899 Other long term (current) drug therapy; Z86.73 Personal history of transient ischemic attack (TIA), and cerebral infarction without residual deficits; Z79.4 Long term (current) use of insulin; Z88.2 Allergy status to sulfonamides; Z91.040 Latex allergy status; Z79.82 Long term (current) use of aspirin

== ENCOUNTER → 2019-09-23 | Outpatient (CLI) | payer OTHER | LOC: HYPER 09-22 15:34 | DX: T87.89 Other complications of amputation stump (principal); E11.621 Type 2 diabetes mellitus with foot ulcer; L97.528 Non-pressure chronic ulcer of other part of left foot with other specified severity; E11.649 Type 2 diabetes mellitus with hypoglycemia without coma; E11.40 Type 2 diabetes mellitus with diabetic neuropathy, unspecified; E66.01 Morbid (severe) obesity due to excess calories; I25.10 Atherosclerotic heart disease of native coronary artery without angina pectoris; Z99.2 Dependence on renal dialysis; Z79.4 Long term (current) use of insulin; Z79.01 Long term (current) use of anticoagulants; Z68.42 Body mass index [BMI] 45.0-49.9, adult; Y83.5 Amputation of limb(s) as the cause of abnormal reaction of the patient, or of later complication, without mention of misadventure at the time of the procedure ==

== ENCOUNTER 2020-05-20 22:54 | Emergency (ER) | payer OTHER ==
[~2020-05-20] VITALS: Ht 167.6 cm; Wt 121.3 kg
[2020-05-20] MEDS ORDERED: LANTUS SUBQ (23:03)
[2020-05-20 23:19] LABS: ABSOLUTE NEUTROPHILS 3.7 thou/uL (1.4-8.2); BASOPHILS 0.5 % (0.0-2.0); EOSINOPHILS 0.5 % (0.0-3.0); HEMATOCRIT 30.1 % (37.0-47.0); HEMOGLOBIN 10.3 gm/dL (12.0-15.0); LYMPHOCYTES 24.1 % (24.0-44.0); MCH 31.3 pg (26.0-34.0); MCHC 34.4 g/dL (28.0-37.0); MCV 91.1 fL (80.0-100.0); MONOCYTES 6.8 % (1.0-8.0); PLATELET COUNT 272 thou/uL (150-400); POLYS 68.1 % (36.0-66.0); WBC 5.4 thou/uL (4.0-11.0)
[2020-05-20 23:25] LABS: ANION GAP 12 mmol/L (7-16); BUN 17 mg/dL (7-18); CALCIUM 8.2 mg/dL (8.5-10.1); CHLORIDE 97 mmol/L (98-107); CO2 28 mmol/L (21-32); CREATININE 4.1 mg/dL (0.6-1.0); GLUCOSE 245 mg/dL (74-106); POTASSIUM 3.3 mmol/L (3.5-5.1); SODIUM 137 mmol/L (136-145)
[2020-05-20 23:35] LABS: ALBUMIN 2.5 g/dL (3.4-5.0); DIRECT BILIRUBIN 0.2 mg/dL (<0.1-0.2); SGOT 28 U/L (15-37); SGPT 20 U/L (30-65); TOTAL BILIRUBIN 0.5 mg/dL (0.2-1.0); TROPONIN-I <0.06 ng/mL (<0.06)
[2020-05-21 02:06] VITALS: BP 152/83
--- NOTE | 2020-05-22 07:33 | EKG ---
[facility] [place] [address] ELECTROCARDIOGRAM REPORT Name: TL LANDRY Room #: DEP [facility]#: [id number] Admission: 05/20/20 Attend Phys: Discharge: 05/21/20 Date of : 56 Report #: [id number] THIS REPORT FOR: cc: Travis Reinoso Steven F. DO Santiago, Patrick MD [facility] THIS REPORT FOR: //name// [facility] ED Test Date: 2020-05-20 Test Time: 23:17:44 Pat Name: TL LANDRY Department: Room: Gender: F Gunner'S Mate: LUIS FELIPE : 1960 Requested By: Tristan Olmstead Order Number: [id number] MD: Khanh Gunn Measurements Intervals [place] Rate: 71 P: 52 MA: 166 QRS: 24 QRSD: 106 T: 52 QT: 433 QTc: 471 Interpretive Statements Sinus rhythm Low voltage, precordial leads Anteroseptal infarct, old Compared to ECG 08/26/2019 10:15:47 Myocardial infarct finding now present Electronically Signed On 05-22-2020 7:32:59 SIZE STAMPER by Khanh Gunn [email or web address] <ELECTRONICALLY SIGNED> By: Khanh Gunn MD, FACC 05/22/20 0732 16 16 Khanh Gunn MD, FAC /EPI
== END 2020-05-21 02:07 | disposition home or self-care (01) ==
LOC: ER 22:54
PROVIDERS: Emergency Medicine
DX: R06.02 Shortness of breath (principal); I10 Essential (primary) hypertension; E11.9 Type 2 diabetes mellitus without complications; I25.10 Atherosclerotic heart disease of native coronary artery without angina pectoris; Z86.73 Personal history of transient ischemic attack (TIA), and cerebral infarction without residual deficits; Z79.4 Long term (current) use of insulin; Z79.899 Other long term (current) drug therapy; Z88.2 Allergy status to sulfonamides; Z91.040 Latex allergy status

== ENCOUNTER → 2020-11-16 | Outpatient (CLI) | payer OTHER | LOC: SJCVC 13:54 | PROVIDERS: ATTEND Internal Medicine Cardiovascular Disease | DX: R94.31 Abnormal electrocardiogram [ECG] [EKG] (principal); E11.22 Type 2 diabetes mellitus with diabetic chronic kidney disease; I12.0 Hypertensive chronic kidney disease with stage 5 chronic kidney disease or end stage renal disease; N18.5 Chronic kidney disease, stage 5; I25.10 Atherosclerotic heart disease of native coronary artery without angina pectoris; E78.00 Pure hypercholesterolemia, unspecified; I87.2 Venous insufficiency (chronic) (peripheral); E66.9 Obesity, unspecified; Z79.4 Long term (current) use of insulin; E11.42 Type 2 diabetes mellitus with diabetic polyneuropathy; E78.5 Hyperlipidemia, unspecified; Z68.39 Body mass index [BMI] 39.0-39.9, adult; Z88.2 Allergy status to sulfonamides; Z91.040 Latex allergy status; Z79.82 Long term (current) use of aspirin; Z79.899 Other long term (current) drug therapy; Z86.73 Personal history of transient ischemic attack (TIA), and cerebral infarction without residual deficits; Z82.49 Family history of ischemic heart disease and other diseases of the circulatory system ==

== ENCOUNTER → 2021-02-06 | Outpatient (CLI) | payer OTHER | LOC: HYPER 08:19 | PROVIDERS: ATTEND Emergency Medicine | DX: E11.621 Type 2 diabetes mellitus with foot ulcer (principal); L97.522 Non-pressure chronic ulcer of other part of left foot with fat layer exposed; E11.42 Type 2 diabetes mellitus with diabetic polyneuropathy; E11.649 Type 2 diabetes mellitus with hypoglycemia without coma; S91.332D Puncture wound without foreign body, left foot, subsequent encounter; S90.822D Blister (nonthermal), left foot, subsequent encounter; S90.821D Blister (nonthermal), right foot, subsequent encounter; I50.9 Heart failure, unspecified; I25.10 Atherosclerotic heart disease of native coronary artery without angina pectoris; E66.01 Morbid (severe) obesity due to excess calories; Z87.01 Personal history of pneumonia (recurrent); Z68.42 Body mass index [BMI] 45.0-49.9, adult; Z99.2 Dependence on renal dialysis; Z79.4 Long term (current) use of insulin; Z79.01 Long term (current) use of anticoagulants; Z98.51 Tubal ligation status; Z89.422 Acquired absence of other left toe(s); Z89.421 Acquired absence of other right toe(s); X58.XXXD Exposure to other specified factors, subsequent encounter ==

== ENCOUNTER → 2021-02-15 | Outpatient (CLI) | payer OTHER | LOC: HYPER 09:33 | PROVIDERS: ATTEND Emergency Medicine | DX: E11.621 Type 2 diabetes mellitus with foot ulcer (principal); L97.522 Non-pressure chronic ulcer of other part of left foot with fat layer exposed; E11.42 Type 2 diabetes mellitus with diabetic polyneuropathy; E11.649 Type 2 diabetes mellitus with hypoglycemia without coma; S91.332D Puncture wound without foreign body, left foot, subsequent encounter; S90.822D Blister (nonthermal), left foot, subsequent encounter; S90.821D Blister (nonthermal), right foot, subsequent encounter; I50.9 Heart failure, unspecified; I25.10 Atherosclerotic heart disease of native coronary artery without angina pectoris; E66.01 Morbid (severe) obesity due to excess calories; Z87.01 Personal history of pneumonia (recurrent); Z68.42 Body mass index [BMI] 45.0-49.9, adult; Z99.2 Dependence on renal dialysis; Z79.4 Long term (current) use of insulin; Z79.01 Long term (current) use of anticoagulants; Z98.51 Tubal ligation status; Z89.422 Acquired absence of other left toe(s); Z89.421 Acquired absence of other right toe(s); X58.XXXD Exposure to other specified factors, subsequent encounter ==

== ENCOUNTER → 2021-02-20 | Outpatient (CLI) | payer OTHER | LOC: SJCVCIMAG 09:11 | PROVIDERS: ATTEND Internal Medicine Cardiovascular Disease | DX: I70.203 Unspecified atherosclerosis of native arteries of extremities, bilateral legs (principal); M79.605 Pain in left leg; M79.604 Pain in right leg ==

== ENCOUNTER → 2021-02-20 | Outpatient (CLI) | payer OTHER | LOC: HYPER 07:53 | PROVIDERS: ATTEND Emergency Medicine | DX: E11.621 Type 2 diabetes mellitus with foot ulcer (principal); L97.522 Non-pressure chronic ulcer of other part of left foot with fat layer exposed; E11.42 Type 2 diabetes mellitus with diabetic polyneuropathy; E11.649 Type 2 diabetes mellitus with hypoglycemia without coma; S91.332D Puncture wound without foreign body, left foot, subsequent encounter; S90.822D Blister (nonthermal), left foot, subsequent encounter; S90.821D Blister (nonthermal), right foot, subsequent encounter; I50.9 Heart failure, unspecified; I25.10 Atherosclerotic heart disease of native coronary artery without angina pectoris; E66.01 Morbid (severe) obesity due to excess calories; Z87.01 Personal history of pneumonia (recurrent); Z68.42 Body mass index [BMI] 45.0-49.9, adult; Z99.2 Dependence on renal dialysis; Z79.4 Long term (current) use of insulin; Z79.01 Long term (current) use of anticoagulants; Z98.51 Tubal ligation status; Z89.422 Acquired absence of other left toe(s); Z89.421 Acquired absence of other right toe(s); X58.XXXD Exposure to other specified factors, subsequent encounter ==

== ENCOUNTER → 2021-03-01 | Outpatient (CLI) | payer OTHER | LOC: HYPER 09:18 | PROVIDERS: ATTEND Emergency Medicine | DX: E11.621 Type 2 diabetes mellitus with foot ulcer (principal); L97.522 Non-pressure chronic ulcer of other part of left foot with fat layer exposed; S91.332D Puncture wound without foreign body, left foot, subsequent encounter; S90.822D Blister (nonthermal), left foot, subsequent encounter; S90.821D Blister (nonthermal), right foot, subsequent encounter; E11.649 Type 2 diabetes mellitus with hypoglycemia without coma; E11.40 Type 2 diabetes mellitus with diabetic neuropathy, unspecified; I50.9 Heart failure, unspecified; I25.10 Atherosclerotic heart disease of native coronary artery without angina pectoris; E66.01 Morbid (severe) obesity due to excess calories; Z68.42 Body mass index [BMI] 45.0-49.9, adult; Z87.01 Personal history of pneumonia (recurrent); Z99.2 Dependence on renal dialysis; Z79.4 Long term (current) use of insulin; Z79.01 Long term (current) use of anticoagulants; Z79.82 Long term (current) use of aspirin; Z89.422 Acquired absence of other left toe(s); Z89.421 Acquired absence of other right toe(s); Z79.899 Other long term (current) drug therapy; X58.XXXD Exposure to other specified factors, subsequent encounter ==

== ENCOUNTER 2021-03-08 12:12 | Observation (INO) | payer OTHER ==
[~2021-03-08] VITALS: Ht 160 cm; Wt 122.5 kg
[2021-03-08 11:55] VITALS: BP 106/41
[2021-03-08 14:22] LABS: ABSOLUTE NEUTROPHILS 6.4 thou/uL (1.4-8.2); BASOPHILS 0.5 % (0.0-2.0); EOSINOPHILS 1.5 % (0.0-3.0); HEMOGLOBIN 11.5 gm/dL (12.0-15.0); LYMPHOCYTES 29.5 % (24.0-44.0); MCH 30.5 pg (26.0-34.0); MCHC 32.9 g/dL (28.0-37.0); MCV 92.7 fL (80.0-100.0); PLATELET COUNT 279 thou/uL (150-400); POLYS 62.5 % (36.0-66.0); RBC 3.78 mil/uL (4.20-5.00); RDW 14.6 % (10.5-14.5); WBC 10.2 thou/uL (4.0-11.0)
[2021-03-08 14:25] LABS: CALCIUM 9.1 mg/dL (8.5-10.1); CREATININE 5.3 mg/dL (0.6-1.0); POTASSIUM 3.5 mmol/L (3.5-5.1)
[2021-03-08 17:24] VITALS: BP 106/41
[2021-03-08 17:30] VITALS: BP 122/58
[2021-03-08 18:00] VITALS: BP 113/57
--- NOTE | 2021-03-08 18:32 | NUR ---
RECEIVED PT FROM [facility]. MYNX CLOSURE R GROIN C/D/I, NO HEMATOMA. VSS, AFEBRILE. PT TO D/C HOME AFTER 3 HRS BEDREST. NO NEW RX. FOLLOW UP WITH DR MACKENZIE SCHEDULED. PT ALSO SEEN BY DR DE JESUS. 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 PT EXTENDED FAMILY CALLED FOR RIDE. DISCHARGE PAPERWORK COMPLETED. NO CONCERNS AT THIS TIME.
[2021-03-08 18:44] VITALS: BP 111/53
[2021-03-08 19:21] VITALS: BP 116/53
--- NOTE | 2021-03-08 20:27 | NUR ---
Pt dc'd to home. Pt transported via w/c with all belongings to meet with gabino Lancaster. R/groin mynx dressing remained C/D/I with ambulation. No bleeding or hematoma noted. Pt voiced that may f/ with Dr Richter falls on her dialysis day. Nursing informed pt to psobbily call doc's office to address this concern. No other concerns at this time.
== END 2021-03-08 20:00 | disposition home or self-care (01) ==
LOC: CATH 12:12 → 2N 17:00
PROVIDERS: ADMIT Nuclear Medicine Nuclear Cardiology; ATTEND Nuclear Medicine Nuclear Cardiology
DX: I70.203 Unspecified atherosclerosis of native arteries of extremities, bilateral legs (principal); I70.1 Atherosclerosis of renal artery; L97.529 Non-pressure chronic ulcer of other part of left foot with unspecified severity; I10 Essential (primary) hypertension; I12.0 Hypertensive chronic kidney disease with stage 5 chronic kidney disease or end stage renal disease; E11.22 Type 2 diabetes mellitus with diabetic chronic kidney disease; N18.6 End stage renal disease; E11.40 Type 2 diabetes mellitus with diabetic neuropathy, unspecified; E66.01 Morbid (severe) obesity due to excess calories; Z79.82 Long term (current) use of aspirin; Z79.4 Long term (current) use of insulin; Z79.899 Other long term (current) drug therapy

== ENCOUNTER → 2021-03-13 | Outpatient (CLI) | payer OTHER | LOC: HYPER 08:20 | PROVIDERS: ATTEND Emergency Medicine | DX: E11.621 Type 2 diabetes mellitus with foot ulcer (principal); L97.522 Non-pressure chronic ulcer of other part of left foot with fat layer exposed; S91.332D Puncture wound without foreign body, left foot, subsequent encounter; S90.822D Blister (nonthermal), left foot, subsequent encounter; S90.821D Blister (nonthermal), right foot, subsequent encounter; E11.649 Type 2 diabetes mellitus with hypoglycemia without coma; E11.40 Type 2 diabetes mellitus with diabetic neuropathy, unspecified; I50.9 Heart failure, unspecified; I25.10 Atherosclerotic heart disease of native coronary artery without angina pectoris; E66.01 Morbid (severe) obesity due to excess calories; Z68.42 Body mass index [BMI] 45.0-49.9, adult; Z87.01 Personal history of pneumonia (recurrent); Z99.2 Dependence on renal dialysis; Z79.4 Long term (current) use of insulin; Z79.01 Long term (current) use of anticoagulants; Z79.82 Long term (current) use of aspirin; Z89.422 Acquired absence of other left toe(s); Z89.421 Acquired absence of other right toe(s); X58.XXXD Exposure to other specified factors, subsequent encounter ==

== ENCOUNTER → 2021-03-27 | Outpatient (CLI) | payer OTHER | LOC: HYPER 07:56 | PROVIDERS: ATTEND Emergency Medicine | DX: E11.621 Type 2 diabetes mellitus with foot ulcer (principal); L97.522 Non-pressure chronic ulcer of other part of left foot with fat layer exposed; L97.422 Non-pressure chronic ulcer of left heel and midfoot with fat layer exposed; S91.332D Puncture wound without foreign body, left foot, subsequent encounter; E11.649 Type 2 diabetes mellitus with hypoglycemia without coma; S90.822D Blister (nonthermal), left foot, subsequent encounter; E11.40 Type 2 diabetes mellitus with diabetic neuropathy, unspecified; S90.821D Blister (nonthermal), right foot, subsequent encounter; I25.10 Atherosclerotic heart disease of native coronary artery without angina pectoris; E66.01 Morbid (severe) obesity due to excess calories; Z68.42 Body mass index [BMI] 45.0-49.9, adult; Z87.01 Personal history of pneumonia (recurrent); Z99.2 Dependence on renal dialysis; Z79.4 Long term (current) use of insulin; Z79.01 Long term (current) use of anticoagulants; Z89.422 Acquired absence of other left toe(s); Z79.82 Long term (current) use of aspirin; Z89.421 Acquired absence of other right toe(s); Z79.899 Other long term (current) drug therapy; X58.XXXD Exposure to other specified factors, subsequent encounter ==

== ENCOUNTER → 2021-04-03 | Outpatient (CLI) | payer OTHER | LOC: SJCVCIMAG 10:04 | PROVIDERS: ATTEND Internal Medicine Cardiovascular Disease | DX: I49.3 Ventricular premature depolarization (principal); I25.10 Atherosclerotic heart disease of native coronary artery without angina pectoris; E11.42 Type 2 diabetes mellitus with diabetic polyneuropathy; E11.22 Type 2 diabetes mellitus with diabetic chronic kidney disease; I12.0 Hypertensive chronic kidney disease with stage 5 chronic kidney disease or end stage renal disease; N18.6 End stage renal disease; E78.00 Pure hypercholesterolemia, unspecified; I73.9 Peripheral vascular disease, unspecified; I10 Essential (primary) hypertension; I87.2 Venous insufficiency (chronic) (peripheral); L97.529 Non-pressure chronic ulcer of other part of left foot with unspecified severity; G56.02 Carpal tunnel syndrome, left upper limb; F32.9 Major depressive disorder, single episode, unspecified; E78.5 Hyperlipidemia, unspecified; Z79.4 Long term (current) use of insulin; Z86.73 Personal history of transient ischemic attack (TIA), and cerebral infarction without residual deficits; Z79.82 Long term (current) use of aspirin; Z79.899 Other long term (current) drug therapy; Z88.2 Allergy status to sulfonamides; Z88.8 Allergy status to other drugs, medicaments and biological substances ==

== ENCOUNTER → 2021-04-10 | Outpatient (CLI) | payer OTHER | LOC: HYPER 09:44 | PROVIDERS: ATTEND Emergency Medicine | DX: E11.621 Type 2 diabetes mellitus with foot ulcer (principal); L97.522 Non-pressure chronic ulcer of other part of left foot with fat layer exposed; L97.422 Non-pressure chronic ulcer of left heel and midfoot with fat layer exposed; S91.332D Puncture wound without foreign body, left foot, subsequent encounter; S90.822D Blister (nonthermal), left foot, subsequent encounter; S90.821D Blister (nonthermal), right foot, subsequent encounter; E11.649 Type 2 diabetes mellitus with hypoglycemia without coma; E11.40 Type 2 diabetes mellitus with diabetic neuropathy, unspecified; I25.10 Atherosclerotic heart disease of native coronary artery without angina pectoris; E66.01 Morbid (severe) obesity due to excess calories; Z68.42 Body mass index [BMI] 45.0-49.9, adult; Z87.01 Personal history of pneumonia (recurrent); Z99.2 Dependence on renal dialysis; Z79.4 Long term (current) use of insulin; Z79.01 Long term (current) use of anticoagulants; Z89.422 Acquired absence of other left toe(s); Z79.82 Long term (current) use of aspirin; Z89.421 Acquired absence of other right toe(s); X58.XXXD Exposure to other specified factors, subsequent encounter ==

== ENCOUNTER → 2021-04-24 | Outpatient (CLI) | payer OTHER | LOC: HYPER 12:02 | PROVIDERS: ATTEND Emergency Medicine | DX: E11.621 Type 2 diabetes mellitus with foot ulcer (principal); L97.522 Non-pressure chronic ulcer of other part of left foot with fat layer exposed; L97.422 Non-pressure chronic ulcer of left heel and midfoot with fat layer exposed; S91.332D Puncture wound without foreign body, left foot, subsequent encounter; S90.822D Blister (nonthermal), left foot, subsequent encounter; S90.821D Blister (nonthermal), right foot, subsequent encounter; L84 Corns and callosities; E11.649 Type 2 diabetes mellitus with hypoglycemia without coma; E11.40 Type 2 diabetes mellitus with diabetic neuropathy, unspecified; I25.10 Atherosclerotic heart disease of native coronary artery without angina pectoris; E66.01 Morbid (severe) obesity due to excess calories; Z68.42 Body mass index [BMI] 45.0-49.9, adult; Z87.01 Personal history of pneumonia (recurrent); Z99.2 Dependence on renal dialysis; Z79.4 Long term (current) use of insulin; Z79.01 Long term (current) use of anticoagulants; Z89.422 Acquired absence of other left toe(s); Z79.82 Long term (current) use of aspirin; Z89.421 Acquired absence of other right toe(s); X58.XXXD Exposure to other specified factors, subsequent encounter ==

== ENCOUNTER → 2021-05-10 | Outpatient (CLI) | payer OTHER | LOC: HYPER 08:09 | PROVIDERS: ATTEND Emergency Medicine | DX: E11.621 Type 2 diabetes mellitus with foot ulcer (principal); L97.422 Non-pressure chronic ulcer of left heel and midfoot with fat layer exposed; S91.332D Puncture wound without foreign body, left foot, subsequent encounter; S90.822D Blister (nonthermal), left foot, subsequent encounter; S61.203D Unspecified open wound of left middle finger without damage to nail, subsequent encounter; S90.821D Blister (nonthermal), right foot, subsequent encounter; E11.649 Type 2 diabetes mellitus with hypoglycemia without coma; E11.40 Type 2 diabetes mellitus with diabetic neuropathy, unspecified; I50.9 Heart failure, unspecified; L84 Corns and callosities; I25.10 Atherosclerotic heart disease of native coronary artery without angina pectoris; E66.01 Morbid (severe) obesity due to excess calories; Z87.01 Personal history of pneumonia (recurrent); Z68.42 Body mass index [BMI] 45.0-49.9, adult; Z79.82 Long term (current) use of aspirin; Z79.899 Other long term (current) drug therapy; Z79.4 Long term (current) use of insulin; Z79.01 Long term (current) use of anticoagulants; Z89.421 Acquired absence of other right toe(s); Z89.422 Acquired absence of other left toe(s); Z99.2 Dependence on renal dialysis; X58.XXXD Exposure to other specified factors, subsequent encounter ==

== ENCOUNTER → 2021-05-22 | Outpatient (CLI) | payer OTHER | LOC: HYPER 10:56 | PROVIDERS: ATTEND Emergency Medicine | DX: E11.621 Type 2 diabetes mellitus with foot ulcer (principal); L97.422 Non-pressure chronic ulcer of left heel and midfoot with fat layer exposed; S91.332D Puncture wound without foreign body, left foot, subsequent encounter; S90.822D Blister (nonthermal), left foot, subsequent encounter; S61.203D Unspecified open wound of left middle finger without damage to nail, subsequent encounter; S90.821D Blister (nonthermal), right foot, subsequent encounter; E11.649 Type 2 diabetes mellitus with hypoglycemia without coma; E11.40 Type 2 diabetes mellitus with diabetic neuropathy, unspecified; I50.9 Heart failure, unspecified; L84 Corns and callosities; I25.10 Atherosclerotic heart disease of native coronary artery without angina pectoris; E66.01 Morbid (severe) obesity due to excess calories; Z87.01 Personal history of pneumonia (recurrent); Z68.42 Body mass index [BMI] 45.0-49.9, adult; Z79.82 Long term (current) use of aspirin; Z79.4 Long term (current) use of insulin; Z79.01 Long term (current) use of anticoagulants; Z89.421 Acquired absence of other right toe(s); Z89.422 Acquired absence of other left toe(s); Z99.2 Dependence on renal dialysis; X58.XXXD Exposure to other specified factors, subsequent encounter ==

== ENCOUNTER → 2021-06-07 | Outpatient (CLI) | payer OTHER | LOC: HYPER 08:20 | PROVIDERS: ATTEND Emergency Medicine | DX: E11.621 Type 2 diabetes mellitus with foot ulcer (principal); L97.422 Non-pressure chronic ulcer of left heel and midfoot with fat layer exposed; S91.332D Puncture wound without foreign body, left foot, subsequent encounter; S90.822D Blister (nonthermal), left foot, subsequent encounter; S61.203D Unspecified open wound of left middle finger without damage to nail, subsequent encounter; S90.821D Blister (nonthermal), right foot, subsequent encounter; E11.649 Type 2 diabetes mellitus with hypoglycemia without coma; E11.40 Type 2 diabetes mellitus with diabetic neuropathy, unspecified; I50.9 Heart failure, unspecified; L84 Corns and callosities; I25.10 Atherosclerotic heart disease of native coronary artery without angina pectoris; E66.01 Morbid (severe) obesity due to excess calories; Z87.01 Personal history of pneumonia (recurrent); Z68.42 Body mass index [BMI] 45.0-49.9, adult; Z79.82 Long term (current) use of aspirin; Z79.4 Long term (current) use of insulin; Z79.01 Long term (current) use of anticoagulants; Z89.421 Acquired absence of other right toe(s); Z89.422 Acquired absence of other left toe(s); Z99.2 Dependence on renal dialysis; X58.XXXD Exposure to other specified factors, subsequent encounter ==

== ENCOUNTER → 2021-06-21 | Outpatient (CLI) | payer OTHER | LOC: HYPER 13:12 | PROVIDERS: ATTEND Emergency Medicine | DX: E11.621 Type 2 diabetes mellitus with foot ulcer (principal); L97.422 Non-pressure chronic ulcer of left heel and midfoot with fat layer exposed; L97.522 Non-pressure chronic ulcer of other part of left foot with fat layer exposed; S91.332D Puncture wound without foreign body, left foot, subsequent encounter; S90.822D Blister (nonthermal), left foot, subsequent encounter; S61.203D Unspecified open wound of left middle finger without damage to nail, subsequent encounter; S90.821D Blister (nonthermal), right foot, subsequent encounter; S61.002D Unspecified open wound of left thumb without damage to nail, subsequent encounter; E11.649 Type 2 diabetes mellitus with hypoglycemia without coma; E11.40 Type 2 diabetes mellitus with diabetic neuropathy, unspecified; L84 Corns and callosities; I50.9 Heart failure, unspecified; I25.10 Atherosclerotic heart disease of native coronary artery without angina pectoris; E66.01 Morbid (severe) obesity due to excess calories; Z87.01 Personal history of pneumonia (recurrent); Z68.42 Body mass index [BMI] 45.0-49.9, adult; Z79.82 Long term (current) use of aspirin; Z79.4 Long term (current) use of insulin; Z79.01 Long term (current) use of anticoagulants; Z89.421 Acquired absence of other right toe(s); Z89.422 Acquired absence of other left toe(s); Z99.2 Dependence on renal dialysis; X58.XXXD Exposure to other specified factors, subsequent encounter ==

== ENCOUNTER → 2021-07-03 | Outpatient (CLI) | payer OTHER | LOC: HYPER 09:23 | PROVIDERS: ATTEND Emergency Medicine | DX: E11.621 Type 2 diabetes mellitus with foot ulcer (principal); L97.422 Non-pressure chronic ulcer of left heel and midfoot with fat layer exposed; L97.522 Non-pressure chronic ulcer of other part of left foot with fat layer exposed; S91.332D Puncture wound without foreign body, left foot, subsequent encounter; S90.822D Blister (nonthermal), left foot, subsequent encounter; S61.203D Unspecified open wound of left middle finger without damage to nail, subsequent encounter; S90.821D Blister (nonthermal), right foot, subsequent encounter; S61.002D Unspecified open wound of left thumb without damage to nail, subsequent encounter; E11.649 Type 2 diabetes mellitus with hypoglycemia without coma; L84 Corns and callosities; E11.40 Type 2 diabetes mellitus with diabetic neuropathy, unspecified; I50.9 Heart failure, unspecified; I25.10 Atherosclerotic heart disease of native coronary artery without angina pectoris; E66.01 Morbid (severe) obesity due to excess calories; Z87.01 Personal history of pneumonia (recurrent); Z68.42 Body mass index [BMI] 45.0-49.9, adult; Z79.82 Long term (current) use of aspirin; Z79.4 Long term (current) use of insulin; Z79.01 Long term (current) use of anticoagulants; Z89.421 Acquired absence of other right toe(s); Z89.422 Acquired absence of other left toe(s); Z99.2 Dependence on renal dialysis; X58.XXXD Exposure to other specified factors, subsequent encounter ==

== ENCOUNTER → 2021-07-05 | Outpatient (CLI) | payer OTHER | LOC: SJCVCIMAG 06-11 14:04 | PROVIDERS: ATTEND Nuclear Medicine Nuclear Cardiology | DX: I65.23 Occlusion and stenosis of bilateral carotid arteries (principal); I70.203 Unspecified atherosclerosis of native arteries of extremities, bilateral legs; E11.51 Type 2 diabetes mellitus with diabetic peripheral angiopathy without gangrene; I77.9 Disorder of arteries and arterioles, unspecified; I25.10 Atherosclerotic heart disease of native coronary artery without angina pectoris; I70.8 Atherosclerosis of other arteries; E11.42 Type 2 diabetes mellitus with diabetic polyneuropathy; E11.22 Type 2 diabetes mellitus with diabetic chronic kidney disease; I12.9 Hypertensive chronic kidney disease with stage 1 through stage 4 chronic kidney disease, or unspecified chronic kidney disease; N18.30 Chronic kidney disease, stage 3 unspecified; E78.00 Pure hypercholesterolemia, unspecified; G56.02 Carpal tunnel syndrome, left upper limb; F32.9 Major depressive disorder, single episode, unspecified; E78.5 Hyperlipidemia, unspecified; E66.9 Obesity, unspecified; I87.2 Venous insufficiency (chronic) (peripheral); Z86.73 Personal history of transient ischemic attack (TIA), and cerebral infarction without residual deficits; Z95.820 Peripheral vascular angioplasty status with implants and grafts; Z89.422 Acquired absence of other left toe(s); Z79.4 Long term (current) use of insulin; Z79.82 Long term (current) use of aspirin; Z79.899 Other long term (current) drug therapy; Z88.2 Allergy status to sulfonamides; Z88.8 Allergy status to other drugs, medicaments and biological substances ==

== ENCOUNTER → 2021-07-06 | Outpatient (CLI) | payer OTHER ==
[~2021-07-06] VITALS: Ht 170.2 cm; Wt 120.4 kg
[2021-07-06 08:53] LABS: HEMATOCRIT 34.4 % (37.0-47.0); HEMOGLOBIN 11.4 gm/dL (12.0-15.0); MCH 30.5 pg (26.0-34.0); MCHC 33.1 g/dL (28.0-37.0); MCV 92.2 fL (80.0-100.0); RBC 3.73 mil/uL (4.20-5.00); RDW 15.6 % (10.5-14.5); WBC 10.7 thou/uL (4.0-11.0)
[2021-07-06 08:59] LABS: CALCIUM 8.8 mg/dL (8.5-10.1)
[2021-07-06 09:16] VITALS: BP 106/37
== END | disposition home or self-care (01) ==
LOC: CATH 06:32
PROVIDERS: ATTEND Nuclear Medicine Nuclear Cardiology
DX: I73.89 Other specified peripheral vascular diseases (principal); I70.1 Atherosclerosis of renal artery; M79.642 Pain in left hand; M25.112 Fistula, left shoulder; M25.532 Pain in left wrist; M25.122 Fistula, left elbow; I12.0 Hypertensive chronic kidney disease with stage 5 chronic kidney disease or end stage renal disease; E11.22 Type 2 diabetes mellitus with diabetic chronic kidney disease; N18.6 End stage renal disease; E78.5 Hyperlipidemia, unspecified; I25.10 Atherosclerotic heart disease of native coronary artery without angina pectoris; K21.9 Gastro-esophageal reflux disease without esophagitis; E66.9 Obesity, unspecified; Z98.890 Other specified postprocedural states; Z79.899 Other long term (current) drug therapy; Z86.73 Personal history of transient ischemic attack (TIA), and cerebral infarction without residual deficits; Z91.040 Latex allergy status; Z88.2 Allergy status to sulfonamides

== ENCOUNTER → 2021-07-17 | Outpatient (CLI) | payer OTHER | LOC: HYPER 13:55 | PROVIDERS: ATTEND Emergency Medicine | DX: E11.621 Type 2 diabetes mellitus with foot ulcer (principal); L97.422 Non-pressure chronic ulcer of left heel and midfoot with fat layer exposed; L97.522 Non-pressure chronic ulcer of other part of left foot with fat layer exposed; S91.332D Puncture wound without foreign body, left foot, subsequent encounter; S90.822D Blister (nonthermal), left foot, subsequent encounter; S61.203D Unspecified open wound of left middle finger without damage to nail, subsequent encounter; S90.821D Blister (nonthermal), right foot, subsequent encounter; S61.002D Unspecified open wound of left thumb without damage to nail, subsequent encounter; E11.649 Type 2 diabetes mellitus with hypoglycemia without coma; L84 Corns and callosities; E11.40 Type 2 diabetes mellitus with diabetic neuropathy, unspecified; I50.9 Heart failure, unspecified; I25.10 Atherosclerotic heart disease of native coronary artery without angina pectoris; E66.01 Morbid (severe) obesity due to excess calories; Z87.01 Personal history of pneumonia (recurrent); Z68.42 Body mass index [BMI] 45.0-49.9, adult; Z79.82 Long term (current) use of aspirin; Z79.4 Long term (current) use of insulin; Z79.01 Long term (current) use of anticoagulants; Z89.421 Acquired absence of other right toe(s); Z89.422 Acquired absence of other left toe(s); Z99.2 Dependence on renal dialysis; X58.XXXD Exposure to other specified factors, subsequent encounter ==

== ENCOUNTER 2021-08-18 20:13 | Emergency (ER) | payer OTHER ==
[~2021-08-18] VITALS: Ht 165.1 cm; Wt 81.7 kg
[2021-08-18] MEDS ORDERED: COLACE100 MG PO (21:18)
[2021-08-18 21:30] VITALS: BP 155/46
== END 2021-08-18 23:10 | disposition home or self-care (01) ==
LOC: ER 20:13
DX: K59.00 Constipation, unspecified (principal); E11.22 Type 2 diabetes mellitus with diabetic chronic kidney disease; I12.0 Hypertensive chronic kidney disease with stage 5 chronic kidney disease or end stage renal disease; N18.6 End stage renal disease; E11.51 Type 2 diabetes mellitus with diabetic peripheral angiopathy without gangrene; E78.5 Hyperlipidemia, unspecified; I25.10 Atherosclerotic heart disease of native coronary artery without angina pectoris; F32.9 Major depressive disorder, single episode, unspecified; Z79.899 Other long term (current) drug therapy; Z79.4 Long term (current) use of insulin; Z89.022 Acquired absence of left finger(s); Z86.73 Personal history of transient ischemic attack (TIA), and cerebral infarction without residual deficits; Z89.422 Acquired absence of other left toe(s)